=== PATIENT | female | born 1950 | race Caucasian/White ===

== ENCOUNTER → 2016-10-14 | Outpatient (CLI) | payer MEDICARE, OTHER | END | disposition home or self-care (01) | LOC: LABWHC1 08:03 | PROVIDERS: ATTEND Internal Medicine Endocrinology, Diabetes & Metabolism | DX: E11.65 Type 2 diabetes mellitus with hyperglycemia (principal) | CPT/HCPCS: 36415; 82947; 84681 ==

== ENCOUNTER → 2016-10-31 | Outpatient (CLI) | payer MEDICARE, OTHER ==
[2016-10-31 12:17] LABS: Appearance,Urine Clear (Clear); Bacteria,Urine Occasional /hpf; Basophils % (A) 1 %; Bilirubin,Urine Negative (Negative); CH 28.8; CHCM 32.7; Eosinophils # (A) 0.1 k/uL (0-0.7); Eosinophils % (A) 2 %; Glucose,Urine (UA) Negative (Negative); HCT 39.9 % (34.0-46.0); HDW 2.78; HGB 12.9 gm/dL (11.4-16.0); Ketones,Urine Negative (Negative); Leukocyte Esterase,Urine Trace (Negative); Luc # (Auto) 0.09; Luc % (Auto) 2; Lymphocytes # (A) 1.3 k/uL (1.0-4.8); Lymphocytes % (A) 21 %; MCH 28.5 pg (25.0-35.0); MCHC 32.3 g/dL (31.0-37.0); MCV 88.3 fL (80.0-100.0); Mean Platelet Volume 7.1; Monocytes # (A) 0.3 k/uL (0-1.0); Monocytes % (A) 5 %; Mucus,Urine Few /hpf; Neutrophils # (A) 4.4 k/uL (1.3-7.7); Neutrophils % (A) 70 %; Nitrite,Urine Negative (Negative); PH, Urine 5.5 (5.0-8.0); Particle Count 5784; Protein,Urine Trace (Negative); RBC 4.52 m/uL (3.80-5.40); RBC,Urine 2 /hpf (0-5); Specific Gravity,Urine 1.019 (1.001-1.035); Squamous Epithelial Cell,Urine 2 /hpf (0-4); UA Billing (MACRO vs. MICRO) MICRO; WBC 6.3 k/uL (3.8-10.6); WBC,Urine 2 /hpf (0-5)
[2016-10-31 12:34] LABS: ALT 34 U/L (9-52); AST 23 U/L (14-36); Alkaline Phosphatase 91 U/L (38-126); Anion Gap 11 mmol/L; Blood Urea Nitrogen 10 mg/dL (7-17); Calcium 9.7 mg/dL (8.4-10.2); Carbon Dioxide 31 mmol/L (22-30); Chloride 99 mmol/L (98-107); Glucose 166 mg/dL (74-99); Non-African American GFR(MDRD) >60 (>60 ml/min/1.73 sqM); Potassium 4.5 mmol/L (3.5-5.1); Sodium 141 mmol/L (137-145); Total Bilirubin 0.9 mg/dL (0.2-1.3); Total Protein 7.7 g/dL (6.3-8.2); Triglycerides 65 mg/dL (<150)
[2016-10-31 15:24] LABS: LDL Cholesterol, Direct 73.5 mg/dL (0.0-129.0)
== END | disposition home or self-care (01) ==
LOC: LABWHC1 11:41
PROVIDERS: ATTEND Family Medicine
DX: J90 Pleural effusion, not elsewhere classified (principal); E03.9 Hypothyroidism, unspecified; E55.9 Vitamin D deficiency, unspecified; R60.9 Edema, unspecified
CPT/HCPCS: 36415; 80053; 81001; 82043; 82306; 83721; 83880; 84439; 84443; 84478; 85025

== ENCOUNTER → 2017-01-05 | Outpatient (CLI) | payer MEDICARE, OTHER ==
--- NOTE | 2017-01-05 15:20 | XR ---
Bilateral knees HISTORY: Bilateral knee pain 3 views of each knee submitted and correlated to prior left knee dated 05/13/2009 The right knee shows joint space loss, marginal spurring especially the medial Oneil with subchond ral sclerosis. Bone mineralization is maintained. Suprapatellar increased density compatible joint ef fusion. Spurring also present at the patellofemoral joint. Left knee shows post arthroplasty change. Alignment is maintained. Small calcification present within the suprapatellar region on the right obdulio sures 5 mm and is of questionable clinical significance, difficult to exclude small loose body. IMPRESSION: Postop changes and osteoarthritis as described.
== END | disposition home or self-care (01) ==
LOC: RADXRMAIN 14:16
PROVIDERS: ATTEND Psychiatry & Neurology Pain Medicine
DX: M17.0 Bilateral primary osteoarthritis of knee (principal); Z98.890 Other specified postprocedural states

== ENCOUNTER → 2017-02-20 | Outpatient (CLI) | payer MEDICARE, OTHER ==
[2017-02-20 08:59] LABS: Basophils % (A) 1 %; CH 29.1; CHCM 33.2; Eosinophils # (A) 0.1 k/uL (0-0.7); Eosinophils % (A) 2 %; HCT 38.4 % (34.0-46.0); HDW 2.61; HGB 12.8 gm/dL (11.4-16.0); Luc # (Auto) 0.19; Luc % (Auto) 2; Lymphocytes # (A) 1.4 k/uL (1.0-4.8); Lymphocytes % (A) 16 %; MCH 29.3 pg (25.0-35.0); MCHC 33.3 g/dL (31.0-37.0); MCV 87.9 fL (80.0-100.0); Mean Platelet Volume 6.8; Monocytes # (A) 0.4 k/uL (0-1.0); Monocytes % (A) 5 %; Neutrophils # (A) 6.6 k/uL (1.3-7.7); Neutrophils % (A) 75 %; RBC 4.37 m/uL (3.80-5.40); RDW 14.1 % (11.5-15.5); WBC 8.8 k/uL (3.8-10.6); WBC (Perox) 8.85
[2017-02-20 12:48] LABS: ALT 27 U/L (9-52); AST 21 U/L (14-36); Alkaline Phosphatase 103 U/L (38-126); Anion Gap 10 mmol/L; Blood Urea Nitrogen 12 mg/dL (7-17); Calcium 10.1 mg/dL (8.4-10.2); Carbon Dioxide 29 mmol/L (22-30); Chloride 100 mmol/L (98-107); Cholesterol 139 mg/dL (<200); Creatine Kinase 73 U/L (30-135); Glucose 153 mg/dL (74-99); HDL Cholesterol 56 mg/dL (40-60); Magnesium 1.7 mg/dL (1.6-2.3); Non-African American GFR(MDRD) >60 (>60 ml/min/1.73 sqM); Potassium 4.4 mmol/L (3.5-5.1); Sodium 139 mmol/L (137-145); Total Bilirubin 0.8 mg/dL (0.2-1.3); Total Protein 7.1 g/dL (6.3-8.2); Triglycerides 76 mg/dL (<150)
[2017-02-20 13:31] LABS: Vitamin B12 576 pg/mL
[2017-02-20 14:56] LABS: Hemoglobin A1C 7.5 % (4.2-6.1)
== END | disposition home or self-care (01) ==
LOC: LABWHC1 08:20
PROVIDERS: ATTEND Family Medicine
DX: E55.9 Vitamin D deficiency, unspecified (principal); E11.65 Type 2 diabetes mellitus with hyperglycemia; J45.30 Mild persistent asthma, uncomplicated; I10 Essential (primary) hypertension; E78.2 Mixed hyperlipidemia
CPT/HCPCS: 36415; 80053; 80061; 82043; 82306; 82550; 82607; 83036; 83735; 84439; 84443; 85025

== ENCOUNTER → 2017-03-02 | Outpatient (CLI) | payer MEDICARE, OTHER ==
--- NOTE | 2017-03-02 11:57 | XR ---
EXAMINATION TYPE: XR ribs bilateral DATE OF EXAM: 03/02/2017 11:50 AM COMPARISON: NONE HISTORY: Pain TECHNIQUE: 8 views of the ribs were obtained bilaterally. FINDINGS: Arthropathy of the shoulders noted. Hypertrophic and degenerative change of the spine noted. No acute displaced rib fracture. No destructive change. Surgical clips in the upper abdomen noted IMPRESSION: 1. No acute osseous abnormality.
== END | disposition home or self-care (01) ==
LOC: RADXRMAIN 11:30
PROVIDERS: ATTEND Family Medicine
DX: L02.221 Furuncle of abdominal wall (principal); M86.10 Other acute osteomyelitis, unspecified site
CPT/HCPCS: 71110

== ENCOUNTER → 2017-07-27 | Outpatient (CLI) | payer MEDICARE, OTHER ==
[2017-07-27 09:25] LABS: Basophils % (A) 0 %; CH 28.9; Eosinophils # (A) 0.2 k/uL (0-0.7); Eosinophils % (A) 2 %; HCT 39.3 % (34.0-46.0); HDW 2.69; HGB 12.9 gm/dL (11.4-16.0); Luc # (Auto) 0.13; Luc % (Auto) 2; Lymphocytes # (A) 1.4 k/uL (1.0-4.8); Lymphocytes % (A) 18 %; MCH 28.9 pg (25.0-35.0); MCHC 32.8 g/dL (31.0-37.0); MCV 88.1 fL (80.0-100.0); Mean Platelet Volume 6.9; Monocytes # (A) 0.4 k/uL (0-1.0); Monocytes % (A) 5 %; Neutrophils # (A) 5.7 k/uL (1.3-7.7); Neutrophils % (A) 74 %; RBC 4.47 m/uL (3.80-5.40); RDW 13.6 % (11.5-15.5); WBC 7.8 k/uL (3.8-10.6); WBC (Perox) 7.38
[2017-07-27 09:39] LABS: ALT 35 U/L (9-52); AST 24 U/L (14-36); Alkaline Phosphatase 116 U/L (38-126); Anion Gap 10 mmol/L; Blood Urea Nitrogen 9 mg/dL (7-17); Calcium 9.8 mg/dL (8.4-10.2); Carbon Dioxide 30 mmol/L (22-30); Chloride 100 mmol/L (98-107); Cholesterol 131 mg/dL (<200); Glucose 153 mg/dL (74-99); HDL Cholesterol 55 mg/dL (40-60); Magnesium 1.7 mg/dL (1.6-2.3); Non-African American GFR(MDRD) >60 (>60 ml/min/1.73 sqM); Potassium 4.5 mmol/L (3.5-5.1); Sodium 140 mmol/L (137-145); Total Bilirubin 0.8 mg/dL (0.2-1.3); Total Protein 7.3 g/dL (6.3-8.2); Uric Acid 5.3 mg/dL (3.7-7.4)
[2017-07-27 16:07] LABS: ANA w/Reflex to Titer NEGATIVE (NEGATIVE)
[2017-07-27 16:09] LABS: Cyclic Citrull Pep IgG Unit <0.5 U/mL; Cyclic Citrullinated Pep IgG NEGATIVE (NEGATIVE)
[2017-07-27 16:16] LABS: Urine Creatinine 204.8 mg/dL
[2017-07-28 09:37] LABS: Lyme IgG/IgM Interp NEGATIVE (NEGATIVE)
== END | disposition home or self-care (01) ==
LOC: LABWHC1 08:51
PROVIDERS: ATTEND Family Medicine
DX: E11.65 Type 2 diabetes mellitus with hyperglycemia (principal); R25.1 Tremor, unspecified; L02.211 Cutaneous abscess of abdominal wall; J45.20 Mild intermittent asthma, uncomplicated; E78.2 Mixed hyperlipidemia; I50.31 Acute diastolic (congestive) heart failure; M25.50 Pain in unspecified joint
CPT/HCPCS: 36415; 80053; 80061; 82043; 82570; 82607; 83735; 84439; 84443; 84550; 85025; 86038; 86200; 86618

== ENCOUNTER → 2017-10-26 | Outpatient (CLI) | payer MEDICARE, OTHER ==
[2017-10-26 10:06] LABS: Basophils # (A) 0.1 k/uL (0-0.2); Basophils % (A) 1 %; Eosinophils # (A) 0.2 k/uL (0-0.7); Eosinophils % (A) 2 %; HCT 42.3 % (34.0-46.0); HGB 13.4 gm/dL (11.4-16.0); Lymphocytes # (A) 1.9 k/uL (1.0-4.8); Lymphocytes % (A) 17 %; MCHC 31.7 g/dL (31.0-37.0); MCV 88.2 fL (80.0-100.0); Mean Platelet Volume 7.6; Monocytes # (A) 0.5 k/uL (0-1.0); Monocytes % (A) 5 %; Neutrophils # (A) 8.6 k/uL (1.3-7.7); Neutrophils % (A) 75 %; Platelet Count 337 k/uL (150-450); RBC 4.79 m/uL (3.80-5.40); RDW 15.3 % (11.5-15.5); WBC 11.4 k/uL (3.8-10.6)
[2017-10-26 10:22] LABS: ALT 32 U/L (9-52); AST 19 U/L (14-36); Alkaline Phosphatase 113 U/L (38-126); Anion Gap 10 mmol/L; Blood Urea Nitrogen 19 mg/dL (7-17); Calcium 10.4 mg/dL (8.4-10.2); Carbon Dioxide 31 mmol/L (22-30); Chloride 99 mmol/L (98-107); Cholesterol 142 mg/dL (<200); Creatine Kinase 48 U/L (30-135); Glucose 134 mg/dL (74-99); HDL Cholesterol 58 mg/dL (40-60); LDL Cholesterol,Calculated 73 mg/dL (0-99); Potassium 4.7 mmol/L (3.5-5.1); Sodium 140 mmol/L (137-145); Total Bilirubin 0.6 mg/dL (0.2-1.3); Total Protein 7.7 g/dL (6.3-8.2); Triglycerides 56 mg/dL (<150); Uric Acid 4.6 mg/dL (3.7-7.4)
[2017-10-26 10:34] LABS: T4, Free (Free Thyroxine) 1.44 ng/dL (0.78-2.19)
[2017-10-26 10:43] LABS: Appearance,Urine Clear (Clear); Bilirubin,Urine Negative (Negative); Blood,Urine Negative (Negative); Color,Urine Colorless; Glucose,Urine (UA) Negative (Negative); Ketones,Urine Negative (Negative); Leukocyte Esterase,Urine Negative (Negative); Nitrite,Urine Negative (Negative); Protein,Urine Trace (Negative); Specific Gravity,Urine 1.004 (1.001-1.035); Urobilinogen,Urine <2.0 mg/dL (<2.0)
[2017-10-26 10:57] LABS: Bacteria,Urine Many /hpf; Mucus,Urine Many /hpf; Squamous Epithelial Cell,Urine 11 /hpf (0-4); WBC,Urine 5 /hpf (0-5)
== END | disposition home or self-care (01) ==
LOC: LABWHC1 09:39
PROVIDERS: ATTEND Family Medicine
DX: E11.65 Type 2 diabetes mellitus with hyperglycemia (principal); E78.2 Mixed hyperlipidemia; E03.9 Hypothyroidism, unspecified
CPT/HCPCS: 36415; 80053; 80061; 81003; 82043; 82550; 82570; 83036; 83735; 84439; 84443; 84550; 85025

== ENCOUNTER → 2017-11-05 | Outpatient (CLI) | payer MEDICARE, OTHER ==
[2017-11-05 15:10] LABS: Protein, Total 7.2 g/dL (6.2-8.2)
[2017-11-09 10:35] LABS: Albumin 3.97 g/dL (3.80-4.90); Gamma Globulin 1.22 g/dL (0.70-1.50)
== END | disposition home or self-care (01) ==
LOC: LABWHC1 11:15
PROVIDERS: ATTEND Nurse Practitioner Family
DX: E83.52 Hypercalcemia (principal); R80.9 Proteinuria, unspecified
CPT/HCPCS: 36415; 82310; 83970; 84165

== ENCOUNTER → 2017-12-24 | Outpatient (CLI) | payer MEDICARE, OTHER ==
[2017-12-24 22:22] LABS: Hemoglobin A1C 7.1 % (4.0-6.0)
== END | disposition home or self-care (01) ==
LOC: LABWHC1 09:24
PROVIDERS: ATTEND Internal Medicine
DX: E11.65 Type 2 diabetes mellitus with hyperglycemia (principal)
CPT/HCPCS: 36415; 82306; 83036

== ENCOUNTER → 2018-06-11 | Outpatient (CLI) | payer MEDICARE, OTHER ==
--- NOTE | 2018-06-11 09:02 | CT ---
EXAMINATION TYPE: CT abdomen wo con DATE OF EXAM: 06/11/2018 COMPARISON: 07/28/2017 HISTORY: Right upper quadrant pain CT DLP: 528 mGycm Examination of the solid and hollow viscera is limited given the lack of contrast. Unenhanced CT of the abdomen was performed from the lung bases through the iliac crests. FINDINGS: LUNG BASES: No evidence for nodule. No evidence for infiltrate. LIVER/GB: The gallbladder surgically absent. No space-occupying hepatic lesion. PANCREAS: No pancreatic mass identified. No inflammatory process seen. SPLEEN: No evidence for splenomegaly. No intrasplenic lesions seen. ADRENALS: No adrenal nodules identified. No evidence for thickening. KIDNEYS: No evidence for renal mass. No nephrolithiasis. No hydronephrosis. BOWEL: Appendix has a normal appearance. No evidence of bowel obstruction. No inflammatory process. Lymph nodes: No evidence for adenopathy greater than 1 cm. Abdominal aorta: Atheromatous changes seen. No evidence for aneurysm. Other: Degenerative changes upper lumbar spine. IMPRESSION: 1. No acute process seen.
== END | disposition home or self-care (01) ==
LOC: RADCTMAIN 08:25
PROVIDERS: ATTEND Internal Medicine
DX: R10.11 Right upper quadrant pain (principal)
CPT/HCPCS: 74150

== ENCOUNTER → 2018-07-07 | Outpatient (CLI) | payer MEDICARE, OTHER ==
[2018-07-07 10:15] LABS: Basophils # (A) 0.1 k/uL (0-0.2); Basophils % (A) 1 %; Eosinophils # (A) 0.1 k/uL (0-0.7); Eosinophils % (A) 2 %; HCT 39.7 % (34.0-46.0); HGB 12.7 gm/dL (11.4-16.0); Lymphocytes # (A) 1.7 k/uL (1.0-4.8); Lymphocytes % (A) 18 %; MCH 29.1 pg (25.0-35.0); MCV 90.7 fL (80.0-100.0); Mean Platelet Volume 7.1; Monocytes # (A) 0.4 k/uL (0-1.0); Monocytes % (A) 5 %; Neutrophils # (A) 6.8 k/uL (1.3-7.7); Neutrophils % (A) 74 %; Platelet Count 261 k/uL (150-450); RBC 4.38 m/uL (3.80-5.40); RDW 14.2 % (11.5-15.5); WBC 9.2 k/uL (3.8-10.6)
[2018-07-07 10:41] LABS: Appearance,Urine Cloudy (Clear); Bacteria,Urine Many /hpf; Bilirubin,Urine Negative (Negative); Blood,Urine Negative (Negative); Color,Urine Yellow; Glucose,Urine (UA) Negative (Negative); Ketones,Urine Negative (Negative); Leukocyte Esterase,Urine Trace (Negative); Mucus,Urine Many /hpf; Nitrite,Urine Negative (Negative); PH, Urine 6.5 (5.0-8.0); Protein,Urine Trace (Negative); RBC,Urine 1 /hpf (0-5); Specific Gravity,Urine 1.021 (1.001-1.035); Squamous Epithelial Cell,Urine 4 /hpf (0-4); WBC,Urine 2 /hpf (0-5)
[2018-07-07 11:09] LABS: ALT 18 U/L (9-52); AST 19 U/L (14-36); Albumin 3.8 g/dL (3.5-5.0); Alkaline Phosphatase 96 U/L (38-126); Anion Gap 8 mmol/L; Blood Urea Nitrogen 14 mg/dL (7-17); Calcium 10.3 mg/dL (8.4-10.2); Carbon Dioxide 32 mmol/L (22-30); Chloride 100 mmol/L (98-107); Cholesterol 134 mg/dL (<200); Creatine Kinase 52 U/L (30-135); Glucose 120 mg/dL (74-99); HDL Cholesterol 55 mg/dL (40-60); LDL Cholesterol,Calculated 68 mg/dL (0-99); Potassium 5.1 mmol/L (3.5-5.1); Sodium 140 mmol/L (137-145); Total Bilirubin 0.9 mg/dL (0.2-1.3); Total Protein 7.1 g/dL (6.3-8.2); Triglycerides 56 mg/dL (<150)
[2018-07-07 11:25] LABS: T4, Free (Free Thyroxine) 1.65 ng/dL (0.78-2.19)
[2018-07-07 18:45] LABS: Vitamin D 25 Hydroxy 52.3 ng/mL (30.0-100.0)
[2018-07-07 20:15] LABS: Hemoglobin A1C 6.6 % (4.0-6.0)
== END | disposition home or self-care (01) ==
LOC: LABWHC1 09:11
PROVIDERS: ATTEND Internal Medicine
DX: E11.65 Type 2 diabetes mellitus with hyperglycemia (principal); E83.52 Hypercalcemia; E78.5 Hyperlipidemia, unspecified; I10 Essential (primary) hypertension; E55.9 Vitamin D deficiency, unspecified; E03.9 Hypothyroidism, unspecified
CPT/HCPCS: 36415; 80053; 80061; 81001; 82043; 82306; 82550; 82570; 82607; 83036; 84439; 84443; 85025

== ENCOUNTER → 2018-08-28 | Outpatient (CLI) | payer MEDICARE, OTHER ==
--- NOTE | 2018-08-28 17:09 | MR ---
EXAMINATION TYPE: MR thoracic spine wo con DATE OF EXAM: 08/28/2018 COMPARISON: Chest radiograph dated 03/17/2017 HISTORY: Radiculopathy thoracic region TECHNIQUE: Standard multiplanar, multisequence MRI other thoracic spine per departmental protocol was performed without intravenous contrast. FINDINGS: There is a heterogenous and mottled appearance of the bone marrow although overall signal i s within normal limits. The vertebral bodies of the thoracic spine maintain normal vertebral body hei ght and alignment. There is an exaggerated thoracic kyphosis. At T10-T11 there is ligamentum flavum buckling and facet arthropathy creating mild bilateral neural f oraminal narrowing. Disc desiccation is seen without disc herniation. At T11-T12 there is also facet arthropathy and ligamentum flavum buckling creating minimal bilateral neural foraminal narrowing. Disc desiccation is seen without herniation. T12-L1: There is a small central disc herniation and facet arthropathy resulting in minimal bilateral neural foraminal narrowing without spinal canal stenosis. At the remainder of the thoracic vertebral levels there is multilevel disc desiccation without spinal canal stenosis or neural foraminal narrowing. Multilevel anterior osteophytes are seen throughout th e thoracic spine as well as an exaggerated thoracic kyphosis. IMPRESSION: 1. No evidence of vertebral body height loss or malalignment. No bone marrow edema or compression def ormity. 2. Small central disc herniation at T12-L1 crating minimal bilateral neural foraminal narrowing witho ut spinal canal stenosis. 3. Ligamentum flavum buckling and facet arthropathy at T10-T11 and T11-T12 creating mild bilateral no rmal foraminal narrowing at T10-T11 and minimal bilateral neural foraminal narrowing at T11-T12. 4. Somewhat heterogenous bone marrow that although is within normal limits could be correlated with C BC to evaluate for anemia or less likely myeloproliferative disorder.
== END ==
LOC: RADMRIMAIN 14:33
PROVIDERS: ATTEND Family Medicine
DX: M99.72 Connective tissue and disc stenosis of intervertebral foramina of thoracic region (principal); M51.15 Intervertebral disc disorders with radiculopathy, thoracolumbar region; M46.94 Unspecified inflammatory spondylopathy, thoracic region
CPT/HCPCS: 72146

== ENCOUNTER → 2018-11-03 | Outpatient (CLI) | payer MEDICARE, OTHER ==
[2018-11-03 12:21] LABS: Basophils # (A) 0.1 k/uL (0-0.2); Basophils % (A) 1 %; Eosinophils # (A) 0.1 k/uL (0-0.7); Eosinophils % (A) 2 %; HCT 36.5 % (34.0-46.0); HGB 11.7 gm/dL (11.4-16.0); Lymphocytes # (A) 1.3 k/uL (1.0-4.8); Lymphocytes % (A) 19 %; MCH 27.2 pg (25.0-35.0); MCHC 31.9 g/dL (31.0-37.0); Mean Platelet Volume 6.8; Monocytes # (A) 0.3 k/uL (0-1.0); Monocytes % (A) 4 %; Neutrophils # (A) 4.9 k/uL (1.3-7.7); Neutrophils % (A) 73 %; Platelet Count 259 k/uL (150-450); RDW 14.3 % (11.5-15.5); WBC 6.7 k/uL (3.8-10.6)
[2018-11-03 12:26] LABS: Appearance,Urine Cloudy (Clear); Bacteria,Urine Moderate /hpf; Bilirubin,Urine Negative (Negative); Blood,Urine Negative (Negative); Color,Urine Yellow; Glucose,Urine (UA) Negative (Negative); Ketones,Urine Negative (Negative); Leukocyte Esterase,Urine Negative (Negative); Mucus,Urine Many /hpf; Nitrite,Urine Negative (Negative); PH, Urine 5.5 (5.0-8.0); Protein,Urine Trace (Negative); RBC,Urine 1 /hpf (0-5); Specific Gravity,Urine 1.025 (1.001-1.035); Squamous Epithelial Cell,Urine 4 /hpf (0-4); WBC,Urine 3 /hpf (0-5)
[2018-11-03 18:16] LABS: Iron Saturation 15.67 (12.00-45.00)
[2018-11-03 18:24] LABS: Vitamin D 25 Hydroxy 83.8 ng/mL (30.0-100.0)
[2018-11-03 18:25] LABS: Albumin 4.3 g/dL (3.80-4.90); Albumin/Globulin Ratio 1.72 (1.20-2.10); Anion Gap 9.6 mmol/L (4.00-12.00); Calcium 9.9 mg/dL (8.7-10.3); Carbon Dioxide 30.4 mmol/L (21.6-31.8); Globulin 2.5 g/dL (1.6-3.3); Magnesium 1.6 mg/dL (1.5-2.4); Potassium 4.1 mmol/L (3.5-5.5); Total Bilirubin 0.5 mg/dL (0.3-1.2); Total Protein 6.8 g/dL (6.2-8.2); Uric Acid 4.8 mg/dL (2.9-7.7)
[2018-11-03 18:33] LABS: T4, Free (Free Thyroxine) 1.8 ng/dL (0.80-1.80)
[2018-11-03 20:03] LABS: Hemoglobin A1C 6.7 % (4.0-6.0)
== END | disposition home or self-care (01) ==
LOC: LABWHC1 10:38
PROVIDERS: ATTEND Family Medicine
DX: I25.10 Atherosclerotic heart disease of native coronary artery without angina pectoris (principal); M54.14 Radiculopathy, thoracic region; I10 Essential (primary) hypertension; E11.65 Type 2 diabetes mellitus with hyperglycemia; E03.9 Hypothyroidism, unspecified; E53.8 Deficiency of other specified B group vitamins; E87.8 Other disorders of electrolyte and fluid balance, not elsewhere classified
CPT/HCPCS: 36415; 80053; 80061; 81001; 82043; 82306; 82550; 82570; 82607; 83036; 83540; 83550; 83704; 83735; 84439; 84443; 84550; 85025

== ENCOUNTER → 2019-01-19 | Outpatient (CLI) | payer MEDICARE, OTHER ==
[2019-01-19 14:31] LABS: Basophils % (A) 0 %; Eosinophils # (A) 0.2 k/uL (0-0.7); Eosinophils % (A) 2 %; HCT 38.3 % (34.0-46.0); HGB 12.1 gm/dL (11.4-16.0); Lymphocytes # (A) 1.7 k/uL (1.0-4.8); Lymphocytes % (A) 21 %; MCH 27.4 pg (25.0-35.0); MCHC 31.7 g/dL (31.0-37.0); MCV 86.6 fL (80.0-100.0); Mean Platelet Volume 6.7; Monocytes # (A) 0.4 k/uL (0-1.0); Monocytes % (A) 5 %; Neutrophils # (A) 5.6 k/uL (1.3-7.7); Neutrophils % (A) 71 %; Platelet Count 267 k/uL (150-450); RBC 4.42 m/uL (3.80-5.40); RDW 14.7 % (11.5-15.5); WBC 7.9 k/uL (3.8-10.6)
[2019-01-19 19:48] LABS: T4, Free (Free Thyroxine) 1.6 ng/dL (0.80-1.80)
[2019-01-19 19:53] LABS: Anti-DNA, DS unit <1.0 IU/mL; DNA Double-Stranded NEGATIVE (NEGATIVE)
[2019-01-19 20:06] LABS: Rheumatoid Factor 14 IU/mL (0-15)
[2019-01-19 20:29] LABS: Folate, Serum 10.6 ng/mL
== END | disposition home or self-care (01) ==
LOC: LABWHC1 13:24
PROVIDERS: ATTEND Psychiatry & Neurology Neurology
DX: R41.3 Other amnesia (principal)
CPT/HCPCS: 36415; 82565; 82607; 82746; 84439; 84443; 84450; 84460; 84481; 84520; 85025; 86038; 86225; 86431

== ENCOUNTER → 2019-01-25 | Outpatient (CLI) | payer MEDICARE, OTHER ==
--- NOTE | 2019-01-25 09:47 | MR ---
EXAMINATION TYPE: MR brain wo/w con DATE OF EXAM: 01/25/2019 COMPARISON: 03/04/2013 HISTORY: Memory loss, tumor TECHNIQUE: Multiplanar, multisequence images of the brain and brainstem is performed without and with IV contras t, utilizing 7.5 mL intravenous Gadavist . FINDINGS: Diffusion weighted images demonstrate no evidence of a recent infarct or other diffusion ab normality. The ventricular system and cisternal spaces demonstrate mild asymmetry in the frontal lob es compatible with asymmetric atrophy. No midline shift or mass effect. Midline structures demonstrate normal morphology. Cerebellar tonsils are low-lying in position measur ing approximately 1 to 2 mm below the level of the foramen magnum. Partially empty sella turcica not ed. Changes of chronic sinusitis are noted. There is a soft tissue nodule within the right parotid gland measuring 0.8 cm. Changes of chronic mastoiditis noted. There is an extra-axial mass involving the right parietal lobe measuring 0.9 x 0.4 x 0.8 cm. There is likely extra-axial and most likely in the basis of a meningioma. No significant mass effect. White matter: There are approximately 2 areas of abnormal signal within the white matter which measur e less than 5 mm and are questionable significance Tiny areas of abnormal signal involving the basal ganglia may represent prominent Virchow-George space s or tiny remote lacunar infarcts. There is a tiny area of abnormal signal in the right thalamus sugg estive of a tiny remote lacunar infarct. There is a more localized area of abnormal signal seen within the posterior left parietal lobe sugges tive of an area of encephalomalacia in previous infarction. There also appears to be asymmetric CSF prior prominence along the posterior midbrain on the left whi ch could represent a small arachnoid cyst measuring 0.5 x 0.5 cm. This is retrospectively stable. IMPRESSION: 1. There is an extra-axial mass measuring 0.9 x 0.4 x 0.8 cm along the right cerebral convexity which is nonspecific given the small size but most likely in the basis of a meningioma. No significant mas s effect. 2. There is a 8mm right parotid gland nodule which should be correlated with ultrasound. 3. Encephalomalacia involving the left temporal lobe suggestive of previous ischemia correlate clinic ally. 4. Minimal nonspecific white matter changes. 5. 5 mm asymmetric CSF prominence along the posterior margin of the left midbrain may represent a tin y arachnoid cyst but is retrospectively stable dating back to the prior exam. 6. Mild atrophy involving the frontal lobes is retrospectively stable. 7. Trace amount of fluid surrounding the optic nerves is a nonspecific finding. There is no flattenin g of the orbits. Correlate clinically to exclude mild papilledema. This can occasionally be seen with benign increased intracranial hypertension. 8. low-lying cerebellar tonsils measuring approximately 1 to 2 mm below the foramen magnum.
== END ==
LOC: RADMRIMAIN 08:48
PROVIDERS: ATTEND Psychiatry & Neurology Neurology
DX: D49.6 Neoplasm of unspecified behavior of brain (principal); G93.89 Other specified disorders of brain; G31.9 Degenerative disease of nervous system, unspecified; R90.89 Other abnormal findings on diagnostic imaging of central nervous system
CPT/HCPCS: 70553; A9585

== ENCOUNTER → 2019-02-25 | Outpatient (CLI) | payer MEDICARE, OTHER ==
[2019-02-25 14:01] VITALS: BP 109/69; PULSE 65; RESP 18; TEMP 97.7; BMI 34.0
--- NOTE | 2019-02-25 14:51 | P.GSHP ---
History of Present Illness H&P Date: 02/25/19 Chief Complaint: abnormal left breast mammogram The patient is a 68 year old white female with complaint of a radiographic abnormality noted in her left breast on 4919. Additional views of the left breast were performed which revealed at the 2:30 position 7.6 cm from the nipple a density measuring 3 x 5 mm was not present on prior mammogram. This was felt to be suspicious and biopsy was recommended. The patient has had hidradenitis in both axilla and under both breast in the past. She states that it is difficult to do exam secondary to this and has not felt anything new in her breasts. She is not complaining of any different skin changes or nipple discharge. She has no history of any recent trauma. She has had a recent development of an abscess-like area between her breast and one under her right breast. These areas are actively inflamed at this time. She has never had a history of MRSA. She has had these lanced in the past but not recently. Family history: 1. maternal grandmother: skin cancer 2. patient: cervical cancer Hormonal history: Menarche:12 , 1 miscarriage, breast fed: no, first born at 21 menopause: 41 BCP:4 hormones: none Surgical History: 1. gallbladder 2. knee replacement left 3. triger finger 4. carpal tunnel left Medical history: 1. Hidradenitis 2. Arthritis 3. Herniated disc in back 4. tremor 5. Diabetes 6. Hypothyroidism Social History: smoke: 12/day alcohol: rare drugs: none - Constitutional Constitutional: Reports chills, Denies fever - EENT Comment: wears contacts, cataract on the right eye removed Eyes: denies pain Ears: bilateral: decreased hearing, tinnitus Ears, nose, mouth and throat: Denies headache, Denies sore throat - Breasts Breasts: bilateral: as per HPI - Cardiovascular Comment: pericarditis Cardiovascular: Reports high blood pressure - Respiratory Comment: Emphysema Respiratory: Denies cough, Denies 7 - Gastrointestinal Comment: IBS Gastrointestinal: Reports diarrhea, Denies abdominal pain, Denies nausea, Denies vomiting - Genitourinary (Female) Genitourinary: Denies dysuria, Denies hematuria - Menstruation Menstruation: Reports post hysterectomy - Musculoskeletal Comment: arthritis Musculoskeletal: Reports as per HPI - Integumentary Integumentary: Reports as per HPI - Neurological Neurological: Denies numbness, Denies weakness - Psychiatric Psychiatric: Reports anxiety - Endocrine Comment: diabetes, hypothyroid Endocrine: Reports weight change - Hematologic/Lymphatic Comment: none - Allergic/Immunologic Allergic/Immunologic: Reports as per HPI Past Medical History Past Medical History: COPD, Diabetes Mellitus, Hyperlipidemia, Hypertension, Thyroid Disorder Additional Past Medical History / Comment(s): Childhood Hepatitis A, hx pericarditis, DDD History of Any Multi-Drug Resistant Organisms: None Reported Past Surgical History: Cholecystectomy, Joint Replacement, Orthopedic Surgery Additional Past Surgical History / Comment(s): egd in past, left knee replacement, dae trigger fingers, right hand carpal tunnel Past Anesthesia/Blood Transfusion Reactions: No Reported Reaction Past Psychological History: Anxiety Additional Psychological History / Comment(s): states especially when awaiting procedures Smoking Status: Current every day smoker Past Alcohol Use History: Occasional Additional Past Alcohol Use History / Comment(s): started smoking age 18 (1967), smokes 1/2 ppd Past Drug Use History: None Reported - Past Family History Sister(s) Family Medical History: Deep Vein Thrombosis (DVT) Medications and Allergies Home Medications Medication Instructions Recorded Confirmed Type Aclidinium [place] [Tudorza 1 puff INHALATION BID 07/06/15 02/25/19 History Pressair] Aspirin 81 mg PO DAILY 07/06/15 02/25/19 History Atorvastatin [Lipitor] 40 mg PO HS 07/06/15 02/25/19 History Ergocalciferol [Vitamin D2] 50,000 unit PO Q14D 07/06/15 02/25/19 History Ferrous Sulfate [Feosol] 650 mg PO DAILY 07/06/15 02/25/19 History Fluticasone/Salmeterol [Advair 1 puff INHALATION RT-BID 07/06/15 02/25/19 History 250-50 Diskus] Levothyroxine Sodium [Synthroid] 50 mcg PO DAILY 07/06/15 02/25/19 History Magnesium Oxide [Magox 400] 400 mg PO DAILY 07/06/15 02/25/19 History Omeprazole [PriLOSEC] 20 mg PO AC-BRKFST 07/06/15 02/25/19 History Ramipril [Altace] 5 mg PO DAILY 07/06/15 02/25/19 History metFORMIN HCL [Glucophage] 1,000 mg PO BID 07/06/15 02/25/19 History Insulin Aspart [NovoLOG Flexpen] 5 unit SQ TID@0800,1200,1700 06/26/16 02/25/19 History Insulin Glargine [Lantus] 20 unit SQ HS 06/26/16 02/25/19 History Cyanocobalamin (Vitamin B-12) 1,000 mcg PO DAILY 07/28/17 02/25/19 History [Vitamin B-12] Furosemide [Lasix] 30 mg PO DAILY 07/28/17 02/25/19 History Potassium Chloride [K-Tab ER] 10 meq PO HS 07/28/17 02/25/19 History Propranolol HCl 60 mg PO DAILY 07/28/17 02/25/19 History Albuterol Inhaler [Ventolin Hfa 1 - 2 puff INHALATION RT-Q6H PRN 02/25/19 02/25/19 History Inhaler] Allergies Allergy/AdvReac Type Severity Reaction Status Date / Time codeine AdvReac Nausea Verified 02/25/19 14:03 Surgical - Exam Vital Signs Temp Pulse Resp BP Pulse Ox 97.7 F 65 18 109/69 100 02/25/19 13:59 02/25/19 13:59 02/25/19 13:59 02/25/19 13:59 02/25/19 13:59 BMI 34 - General well developed, well nourished, no distress - Eyes normal ocular movement - ENT normal pinna, no hearing loss - Neck no masses, trachea midline - Respiratory normal expansion, normal respiratory effort, clear to auscultation - Cardiovascular Rhythm: regular Heart Sounds: normal: S1, S2 - Abdomen Abdomen: soft - Integumentary Evidence of hidradenitis bilateral axilla, underneath both breasts, and in both groins - Neurologic no disoriented, no combative - Musculoskeletal normal gait, normal posture - Psychiatric oriented to time, oriented to person, oriented to place, speech is normal, memory intact Breast examination: Right breast: Multi-positional exam no dominant masses or nodules of concern, fibrocystic changes, evidence of hidradenitis inferior to breast Right axilla: Hidradenitis no discrete adenopathy Left breast: Multi-positional exam no dominant masses or nodules of concern, fibrocystic changes, evidence of hidradenitis inferior to the breast Left axilla: Hidradenitis no discrete adenopathy Results mammogram reports reviewed Assessment and Plan Assessment: Impression: 1. Mammographic abnormality left breast 2. Bilateral axillary hidradenitis 3. Family history of cancer 4. Fibrocystic breast changes 5. Thyroid disorder 6. Hypertension 7. COPD 8. Nicotine dependence 9. Hyperlipidemia 10. Diabetes 11. Hidradenitis inferior to the breast as well as in the groins Plan: 1. Patient is radiograph report has been reviewed with radiology attempted see if this lesion can be seen on ultrasound if it can the biopsy will be done via ultrasound guidance if not she will have stereotactic guided biopsy of the left breast 2. Medical management of medical conditions CC: Dr. Ortiz
--- NOTE | 2019-03-01 08:10 | USB ---
Reason for exam: clinical finding. US Breast LT Left complete breast ultrasound includes all four quadrants, the retroareolar region and axilla. Finding demonstrates no cystic or solid lesion seen. These results were verbally communicated with the patient and result sheet given to the patient on 02/25/19. ASSESSMENT: Negative, BI-RAD 1 RECOMMENDATION: Surgical consultation of the left breast. PRELIMINARY REPORT CALLED AND FAXED TO DR. COLLIER ON 03/01/19
== END ==
LOC: WWCWWP 13:50
PROVIDERS: ATTEND Surgery
DX: R92.8 Other abnormal and inconclusive findings on diagnostic imaging of breast (principal)

== ENCOUNTER → 2019-03-04 | Day surgery (SDC) | payer MEDICARE, OTHER ==
[2019-03-04 07:30] VITALS: RESP 16; BMI 33.3
[2019-03-04 08:49] VITALS: BP 111/70; PULSE 60; TEMP 97.7
--- NOTE | 2019-03-04 08:59 | P.OP ---
Date of Procedure: 03/04/19 Preoperative Diagnosis: Mammographic abnormality left breast Postoperative Diagnosis: same Procedure(s) Performed: Stereotactic core biopsy left breast Anesthesia: local Surgeon: Dali Conroy Estimated Blood Loss (ml): 0 Pathology: other (Breast tissue) Condition: stable Disposition: same day Indications for Procedure: Mammographic abnormality left breast Description of Procedure: The patient was noted to have a spiculated area of increasing density 0.7 x 0.3 cm in the upper mid aspect of the left breast 8 cm from the [place]ipple [place] [id number]. She was recommended to undergo stereotactic core biopsy. The patient was informed of risks and benefits and she wished to proceed. The patient was taken to the stereotactic core biopsy room. She was positioned on the low had table. A plastering contractor film was obtained in the area of concern was identified. The approach was a lateral to medial approach. Stereo pair of the area was performed. The lesion was targeted on the stereo pair. The breast was prepped using Betadine. 20 mL of 1% lidocaine was used to anesthetize the breast. A 9-gauge vacuum-assisted rotating core biopsy needle was inserted to the they needle was noted to be in the correct location and post-fire films were obtained. Approximately 9 core biopsies were obtained. Radiograph of the specimen revealed the area of concern had been sampled. A Secure manny top straw hat plunger operator was deployed. Radiograph revealed that this was in the correct location. Specimen was sent for pathology. The patient will follow with Dr. Ochoa in 1 week. The patient had no immediate postoperative complications.
--- NOTE | 2019-03-04 15:27 | MM ---
EXAMINATION TYPE: MG stereo VAD BX LT DATE OF EXAM: 03/04/2019 COMPARISON: Mammogram 02/04/2019, mammogram 01/18/2019 CLINICAL HISTORY: Abnormal outside mammogram spiculated mass with possible calcification TECHNIQUE: Stereotactic guided core biopsy of left breast. FINDINGS: Procedures performed with surgeon. [facility]. Shortness pathway was lateral approach. Dr. Zeyad meza formed the localization, then surgeon, Dr. Don Wagner performed the remainder of the procedure. A va cuum assisted biopsy gun was used to obtain multiple core samples. The patient tolerated the procedure well without any immediate complication. The patient was kept in the radiology department for short stay after the procedure and then discharged home in stable condi tion. Targeted calcifications are identified in specimen mammogram. Post procedure mammogram ordered by the physician is reviewed below. IMPRESSION: 1. Successful stereotactic core biopsy right breast mass contains calcifications. Recommendations: 1. Recommendations are pending pathology results. 2. Please also see clip placement mammogram dictation below. EXAMINATION TYPE: MG stereo VAD BX LT DATE OF EXAM: 03/04/2019 COMPARISON: Outside mammograms dated 01/18/2019 and outside diagnostic imaging left breast 02/04/2019. CLINICAL HISTORY: Abnormal outside mammogram TECHNIQUE: 2 views of the left breast post clip placement. FINDINGS: There is some suspected migration present. Biopsy site appears 1.2 cm from the clip in the mediolateral view and 2.7 cm in the craniocaudal view. IMPRESSION: 1. Successful clip deployment with some accordion effect following decompression. Recommendations: 1. Recommendations are pending pathology results. 2. If localization of this area is required please refer to outside mammogram dated 01/18/2019 for inte nded target and post procedure mammogram of 03/04/2019.
== END ==
LOC: RADMAMWWP 07:04
PROVIDERS: ATTEND Surgery
DX: C50.812 Malignant neoplasm of overlapping sites of left female breast (principal); Z88.5 Allergy status to narcotic agent
CPT/HCPCS: 19081; 88305; 88342; 88341; A4648; J2001

== ENCOUNTER → 2019-03-10 | Outpatient (CLI) | payer MEDICARE, OTHER ==
[2019-03-10 08:25] VITALS: BP 114/72; PULSE 69; RESP 18; TEMP 98.2; BMI 33.2
--- NOTE | 2019-03-10 11:04 | P.PN ---
Subjective Progress Note Date: 03/10/19 The patient is a 60-year-old white female who was noted to have a radiographic abnormality in her left breast. She subsequently underwent a stereotactic core biopsy of this area. This was performed on 520 [id number]. Pathology revealed an invasive well-differentiated ductal carcinoma, grade 1, ER/AL positive, HER- 2/shree negative. This is a stage IA lesion. Upon review of the mammogram there is concern that the patient may have had some migration of the clip after the biopsy. The area of the biopsy however was identified with the radiologist. Also of importance is the fact that there was some DCIS present in the specimen. The size of the lesion radiographically was approximately 7 mm. The patient has a size 40DD breast. Family history: 1. Maternal grandmother: Skin cancer 2. Patient: Cervical cancer Hormonal history: Menarche: 12 , 1 miscarriage, press-fit: No, and at 21 Menopause: 41 Visit control pills: 4 years Hormones: None Surgical history: 1. Cholecystectomy 2. Left knee replacement 3. Trigger finger 4. Left carpal tunnel Medical history: 1. Hidradenitis 2. Arthritis 3. Herniated disc in her back 4. Tremor 5. Diabetes 6. Hypothyroidism Social history: Smoke: One half pack per day Alcohol: Rare Drugs: Negative Review of systems: Constitutional: Negative HEENT: Wears glasses cataracts on the right I removed Breasts: As noted Cardiovascular: Pericarditis in the past Respiratory: Emphysema GI: Irritable bowel syndrome : Prior history of previous cervical cancer Musculoskeletal: Arthritis Psychiatric: Anxiety Lungs: Clear Heart: Regular rate and rhythm Breasts: Biopsy site clean and dry Impression: 1. Objective - Vital Signs Vital signs: Vital Signs Temp 98.2 F 03/10/19 08:18 Pulse 69 03/10/19 08:18 Resp 18 03/10/19 08:18 BP 114/72 03/10/19 08:18 Pulse Ox 99 03/10/19 08:18 Intake & Output 03/09/19 03/10/19 03/10/19 18:59 06:59 18:59 Weight 77.111 kg - Exam BMI 33.2 - Constitutional General appearance: Present: obese - EENT Eyes: Present: EOMI ENT: Present: hearing grossly normal - Neck Neck: Present: normal ROM - Respiratory Respiratory: bilateral: CTA - Cardiovascular Rhythm: regular Heart sounds: normal: S1, S2 - Integumentary Integumentary Comment(s): Bilateral axillary evidence of hidradenitis well-healed at this time Core biopsy site clean and dry no evidence of infection - Musculoskeletal Musculoskeletal: Present: gait normal - Psychiatric Psychiatric: Present: A&O x's 3, appropriate affect, intact judgment & insight - Additional findings Additional findings: Pathology: Invasive well-differentiated ductal carcinoma, grade 1, low-grade DCIS with associated calcifications, ER/AL positive, HER-2 negative Assessment and Plan Assessment: Impression: 1. Stage IA left breast cancer 2. Arthritis 3. Diabetes 4. Herniated disc and back 5. Tremor 6. Hypothyroid Plan: 1. Left breast lumpectomy and sentinel node biopsy possible axillary node dissection 2. Medical clearance 3. Preoperative appointment with radiation oncology 4. Follow-up with medical oncology 5. Presentation at tumor board Surgical options including mastectomy versus lumpectomy with radiation therapy were discussed with the patient. The patient wishes a lumpectomy to be performed . The patient will also undergo sentinel node biopsy possible axillary node dissection. She understands the risks and benefits and wishes to proceed. She understands that the left breast will be asymmetric to the right breast and despite that she wishes to have a resection. Cc: Dr. Ortiz
== END ==
LOC: WWCWWP 08:12
PROVIDERS: ATTEND Surgery
DX: Z53.9 Procedure and treatment not carried out, unspecified reason (principal)

== ENCOUNTER → 2019-03-29 | Outpatient (CLI) | payer MEDICARE, OTHER ==
[2019-03-29 10:15] LABS: Basophils % (A) 1 %; Eosinophils # (A) 0.1 k/uL (0-0.7); Eosinophils % (A) 2 %; HCT 35.1 % (34.0-46.0); HGB 11.2 gm/dL (11.4-16.0); Lymphocytes # (A) 1.2 k/uL (1.0-4.8); Lymphocytes % (A) 19 %; MCH 27.6 pg (25.0-35.0); MCHC 31.9 g/dL (31.0-37.0); MCV 86.6 fL (80.0-100.0); Mean Platelet Volume 7.1; Monocytes # (A) 0.4 k/uL (0-1.0); Monocytes % (A) 6 %; Neutrophils # (A) 4.6 k/uL (1.3-7.7); Neutrophils % (A) 72 %; Platelet Count 281 k/uL (150-450); RBC 4.05 m/uL (3.80-5.40); RDW 14.7 % (11.5-15.5); WBC 6.5 k/uL (3.8-10.6)
[2019-03-29 16:27] LABS: Vitamin D 25 Hydroxy 98.8 ng/mL (30.0-100.0)
[2019-03-29 16:57] LABS: Magnesium 1.6 mg/dL (1.5-2.4)
[2019-03-29 16:58] LABS: African American GFR (CKD) 103.2 (60.0-200.0); Albumin 3.9 g/dL (3.80-4.90); Albumin/Globulin Ratio 1.44 (1.60-3.17); BUN/Creat Ratio 14.29 Ratio (12.00-20.00); Calcium 9.7 mg/dL (8.7-10.3); Globulin 2.7 g/dL (1.6-3.3); Potassium 4.4 mmol/L (3.5-5.5); Total Bilirubin 0.4 mg/dL (0.3-1.2); Total Protein 6.6 g/dL (6.2-8.2)
[2019-03-29 17:00] LABS: Hemoglobin A1C 6.5 % (4.0-6.0)
[2019-03-29 17:05] LABS: T4, Free (Free Thyroxine) 1.8 ng/dL (0.80-1.80)
== END | disposition home or self-care (01) ==
LOC: LABWHC1 09:16
PROVIDERS: ATTEND Family Medicine
DX: E11.9 Type 2 diabetes mellitus without complications (principal); E03.9 Hypothyroidism, unspecified; R92.2 Inconclusive mammogram; E78.5 Hyperlipidemia, unspecified; G25.0 Essential tremor; E55.9 Vitamin D deficiency, unspecified; E53.8 Deficiency of other specified B group vitamins
CPT/HCPCS: 36415; 80053; 80061; 82043; 82306; 82570; 82607; 83036; 83735; 84439; 84443; 85025

== ENCOUNTER → 2019-04-13 | Outpatient (CLI) | payer MEDICARE, OTHER ==
[2019-04-13 14:24] VITALS: BP 115/69; PULSE 66; RESP 18; TEMP 98.4; BMI 32.5
--- NOTE | 2019-04-13 15:03 | P.GSHP ---
History of Present Illness H&P Date: 04/13/19 Chief Complaint: Clinical stage IA, T1 N0 M0 ER/SC +Her2-G1, left breast cancer Estela is a 60-year-old white female who is noted to have a radiographic abnormality in her left breast. She subsequently underwent stereotactic core biopsy of this area. This was performed on 52 419. 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 This is stage IA. Review of the mammogram there was concern that the patient may have had some migration of the clip after the biopsy. The area biopsy however was identified with the radiologist. Also importance is the fact that there was some DCIS present in the specimen. The size of the lesion radiographically was 7 mm. The patient's breast size is 40the. Family history: 1. Maternal grandmother: Skin cancer 2. Patient: Cervical cancer Hormonal history: Medical: 12 1 miscarriage, did not breast-feed, first child born at 21 Menopause: 41 control pills colon 4 years Hormones: Negative Surgical history: 1. Cholecystectomy 2. Left knee replacement 2. Trigger finger 4. Left carpal tunnel Medical history: 1. Hidradenitis 2. Arthritis 3. Herniated disc in her back 4. Trauma 5. Diabetes 6. Hypothyroidism Social history: Smoked: Half a pack per day Alcohol: Rare Drugs: Negative - Constitutional Constitutional: Denies chills, Denies fever - EENT Eyes: denies blurred vision, denies pain Ears: bilateral: decreased hearing, tinnitus Ears, nose, mouth and throat: Denies headache, Denies sore throat - Breasts Breasts: bilateral: as per HPI - Cardiovascular Cardiovascular: Reports high blood pressure, Denies chest pain, Denies shortness of breath - Respiratory Comment: Emphysema - Gastrointestinal Comment: IBS history of hepatitis Gastrointestinal: Denies abdominal pain, Denies diarrhea, Denies nausea, Denies vomiting - Genitourinary (Female) Genitourinary: Denies dysuria, Denies hematuria - Menstruation Menstruation: Reports postmenopausal - Musculoskeletal Comment: arthritis - Integumentary Comment: Hidradenitis, under both arms, worse on the right, and bilateral groin - Neurological Comment: tremor Neurological: Denies numbness, Denies weakness - Psychiatric Psychiatric: Reports anxiety - Endocrine Endocrine: Reports weight change - Hematologic/Lymphatic Comment: none - Allergic/Immunologic Allergic/Immunologic: Reports as per HPI Past Medical History Past Medical History: COPD, Diabetes Mellitus, Hyperlipidemia, Hypertension, Thyroid Disorder Additional Past Medical History / Comment(s): Childhood Hepatitis A, hx pericarditis, DDD History of Any Multi-Drug Resistant Organisms: None Reported Past Surgical History: Cholecystectomy, Joint Replacement, Orthopedic Surgery Additional Past Surgical History / Comment(s): egd in past, left knee replacement, dae trigger fingers, right hand carpal tunnel Past Anesthesia/Blood Transfusion Reactions: No Reported Reaction Past Psychological History: Anxiety Additional Psychological History / Comment(s): states especially when awaiting procedures Smoking Status: Current every day smoker Past Alcohol Use History: Occasional Additional Past Alcohol Use History / Comment(s): started smoking age 16 (1965), smokes 1/2 ppd Past Drug Use History: None Reported - Past Family History Sister(s) Family Medical History: Deep Vein Thrombosis (DVT) Medications and Allergies Home Medications Medication Instructions Recorded Confirmed Type Aclidinium [place] [Tudorza 1 puff INHALATION BID 07/06/15 03/10/19 History Pressair] Aspirin 81 mg PO DAILY 07/06/15 03/10/19 History Atorvastatin [Lipitor] 40 mg PO HS 07/06/15 03/10/19 History Ergocalciferol [Vitamin D2] 50,000 unit PO Q14D 07/06/15 03/10/19 History Ferrous Sulfate [Feosol] 650 mg PO DAILY 07/06/15 03/10/19 History Fluticasone/Salmeterol [Advair 1 puff INHALATION RT-BID 07/06/15 03/10/19 History 250-50 Diskus] Levothyroxine Sodium [Synthroid] 50 mcg PO DAILY 07/06/15 03/10/19 History Magnesium Oxide [Magox 400] 400 mg PO DAILY 07/06/15 03/10/19 History Omeprazole [PriLOSEC] 20 mg PO AC-BRKFST 07/06/15 03/10/19 History Ramipril [Altace] 5 mg PO DAILY 07/06/15 03/10/19 History metFORMIN HCL [Glucophage] 1,000 mg PO BID 07/06/15 03/10/19 History Insulin Aspart [NovoLOG Flexpen] 5 unit SQ TID@0800,1200,1700 06/26/16 03/10/19 History Insulin Glargine [Lantus] 20 unit SQ HS 06/26/16 03/10/19 History Cyanocobalamin (Vitamin B-12) 1,000 mcg PO DAILY 07/28/17 03/10/19 History [Vitamin B-12] Furosemide [Lasix] 30 mg PO DAILY 07/28/17 03/10/19 History Potassium Chloride [K-Tab ER] 10 meq PO HS 07/28/17 03/10/19 History Propranolol HCl 60 mg PO DAILY 07/28/17 03/10/19 History Albuterol Inhaler [Ventolin Hfa 1 - 2 puff INHALATION RT-Q6H PRN 02/25/19 03/10/19 History Inhaler] Allergies Allergy/AdvReac Type Severity Reaction Status Date / Time codeine AdvReac Nausea Verified 04/13/19 14:24 Surgical - Exam Vital Signs Temp Pulse Resp BP Pulse Ox 98.4 F 66 18 115/69 99 04/13/19 14:21 04/13/19 14:21 04/13/19 14:21 04/13/19 14:21 04/13/19 14:21 BMI 32.6 - General well developed, well nourished, no distress - Eyes normal ocular movement - ENT no hearing loss, no congestion - Neck no masses, trachea midline - Respiratory normal respiratory effort, clear to auscultation - Cardiovascular Rhythm: regular Heart Sounds: normal: S1, S2 - Abdomen Abdomen: soft, non tender, no guarding, no rigid, no rebound - Integumentary normal turgor - Neurologic tremor - Musculoskeletal normal gait - Psychiatric oriented to time, oriented to person, oriented to place, speech is normal, memory intact breast exam: right breast: Multiple positional exam no dominant masses or nodules of concern left Axilla: Changes related to hidradenitis no discrete adenopathy Left breast: Multiple positional exam no dominant masses or nodules of concern Left axilla: Changes related to hidradenitis Bra size 40 DD Results Mammogram and pathology results reviewed, patient's case presented at tumor board Assessment and Plan Assessment: Impression: 1. Stage IA left breast cancer 2. Hidradenitis 3. Arthritis 4. Diabetes 5. Tremor 6. Herniated disc in the back 7. Hypothyroidism Risk and benefits of surgery been discussed with the patient and her sister. Options including lumpectomy plus radiation therapy, sentinel node biopsy plus or minus axillary node dissection versus mastectomy plus or minus immediate reconstruction with sentinel node biopsy possible axillary node dissection were discussed. The patient has opted for a lumpectomy with sentinel node biopsy possible axillary node dissection. She understands the risks and benefits and this is scheduled for the near future. Plan: 1. Lumpectomy with needle localization, sentinel node biopsy, possible axillary node dissection left breast 2. Medical clearance CC:
== END | disposition home or self-care (01) ==
LOC: WWCWWP 14:06
PROVIDERS: ATTEND Surgery
DX: Z53.9 Procedure and treatment not carried out, unspecified reason (principal)

== ENCOUNTER 2019-04-26 08:42 | Day surgery (SDC) | payer MEDICARE, OTHER ==
[2019-04-22 16:57] VITALS: BMI 32.2
[~2019-04-26 08:42] MED LIST: HEPARIN SODIUM,PORCINE 5,000 UNIT/ML 1 ML VIAL SQ ONE; LACTATED RINGERS 1,000 ML IV SCH; LIDOCAINE 1% 20 ML VIAL (10MG/ML) FOR IV START INTRADERMA PRN; MORPHINE SULFATE 2 MG/ML SYRINGE IV PRN; ONDANSETRON 4 MG/2 ML VIAL IVP ONE; ONDANSETRON 4 MG/2 ML VIAL IVP PRN; Pre Op ABX Message 1 EACH MISC MISCELLANE ONE; SCOPOLAMINE 1.5MG/72HR PATCH TRANSDERM ONE
[2019-04-26 09:07] LABS: Glucose,Whole Blood 105 mg/dL (75-99)
[2019-04-26] MEDS ORDERED: ALPRAZolam 0.25 MG TAB PO ONE (09:11)
--- NOTE | 2019-04-26 09:23 | P.PN ---
Progress Note - Text Progress Note Date: 04/26/19 The patient is a 60-year-old white female who was noted to have a radiographic abnormality in her left breast. She subsequently underwent a stereotactic core biopsy of this area. This was performed on . Pathology revealed an invasive well-differentiated ductal carcinoma, grade 1, ER/MT positive, HER- 2/shree negative. This is a stage IA lesion. Upon review of the mammogram there is concern that the patient may have had some migration of the clip after the biopsy. The area of the biopsy however was identified with the radiologist. Also of importance is the fact that there was some DCIS present in the specimen. The size of the lesion radiographically was approximately 7 mm. The patient has a size 40DD breast. Family history: 1. Maternal grandmother: Skin cancer 2. Patient: Cervical cancer Hormonal history: Menarche: 12 , 1 miscarriage, press-fit: No, and at 21 Menopause: 41 Visit control pills: 4 years Hormones: None Surgical history: 1. Cholecystectomy 2. Left knee replacement 3. Trigger finger 4. Left carpal tunnel Medical history: 1. Hidradenitis 2. Arthritis 3. Herniated disc in her back 4. Tremor 5. Diabetes 6. Hypothyroidism Social history: Smoke: One half pack per day Alcohol: Rare Drugs: Negative Review of systems: Constitutional: Negative HEENT: Wears glasses cataracts on the right I removed Breasts: As noted Cardiovascular: Pericarditis in the past Respiratory: Emphysema GI: Irritable bowel syndrome : Prior history of previous cervical cancer Musculoskeletal: Arthritis Psychiatric: Anxiety Vital Signs Intake & Output - Exam BMI 33.2 - Constitutional General appearance: Present: obese - EENT Eyes: Present: EOMI ENT: Present: hearing grossly normal - Neck Neck: Present: normal ROM - Respiratory Respiratory: bilateral: CTA - Cardiovascular Rhythm: regular Heart sounds: normal: S1, S2 - Integumentary Integumentary Comment(s): Bilateral axillary evidence of hidradenitis well-healed at this time Core biopsy site clean and dry no evidence of infection - Musculoskeletal Musculoskeletal: Present: gait normal - Psychiatric Psychiatric: Present: A&O x's 3, appropriate affect, intact judgment & insight - Additional findings Additional findings: Breast examination: Breasts: Multiple positional exam no dominant masses or nodules of concern Right axilla: Evidence of hidradenitis well-healed no adenopathy of concern Left breast: Multiple positional exam no evidence of infection related to the biopsy, no dominant masses or nodules of concern Left axilla: Evidence of hidradenitis, no adenopathy of concern Pathology: Invasive well-differentiated ductal carcinoma, grade 1, low-grade DCIS with associated calcifications, ER/MT positive, HER-2 negative Assessment and Plan Assessment: Impression: 1. Stage IA left breast cancer 2. Arthritis 3. Diabetes 4. Herniated disc and back 5. Tremor 6. Hypothyroid Plan: 1. Left breast lumpectomy and sentinel node biopsy possible axillary node dissection 2. Medical clearance 3. Preoperative appointment with radiation oncology 4. Follow-up with medical oncology 5. Presentation at tumor board Surgical options including mastectomy versus lumpectomy with radiation therapy were discussed with the patient. The patient wishes a lumpectomy to be performed . The patient will also undergo sentinel node biopsy possible axillary node dissection. She understands the risks and benefits and wishes to proceed. She understands that the left breast will be asymmetric to the right breast and despite that she wishes to have a resection. Cc: Dr. Ortiz
[2019-04-26] MEDS ORDERED: ceFAZolin IN SWFI 2 GM/20 ML SYRINGE IVP STA (09:45)
[2019-04-26] MEDS ORDERED: LIDOCAINE 1% INJ 10MG/ML (20 ML MDV) SQ ONE ×3 (10:10→13:39)
--- NOTE | 2019-04-26 10:56 | NM ---
EXAMINATION TYPE: NM sentinel node injection DATE OF EXAM: 04/26/2019 COMPARISON: NONE HISTORY: Left breast carcinoma TECHNIQUE AND FINDINGS: The procedure of sentinel lymph node injection was explained to the patient. The benefits, alternatives, and risks were discussed. An informed consent was then obtained. Overlying skin is cleaned with sterile alcohol. Lidocaine buffered with bicarbonate was used as anes thetic into the skin and subcutaneous tissue surrounding the nipple. Following this, 520 uCi Tc 99m Filtered Sulfur Colloid was injected upper outer portion of the left nipple intradermally. The injection sites were massaged by learning technologist for 10 minutes after injection. T he patient tolerated the procedure well without any immediate complication. The patient was kept in the radiology department for short stay after the procedure and then taken to surgery for surgical pr ocedure what is presumed intraoperative gamma probe will be used for sentinel lymph node detection. IMPRESSION: Left breast radiotracer injection for sentinel node localization as above.
[2019-04-26] MEDS ORDERED: HEPARIN SODIUM,PORCINE 5,000 UNIT/ML 1 ML VIAL SQ ONE (12:39)
--- NOTE | 2019-04-26 12:40 | P.NAPBC ---
NAPBC Queries - NAPBC Queries Was patient's case review presented at [facility] tumor board? If no, comment.: Yes Was patient's pathology reviewed at [facility]? If no, comment.: Yes Was breast conservation surgery offered? If no, comment.: Yes Was sentinel node biopsy offered? If no, comment.: Yes Was diagnosis confirmed by percutaneous core biopsy? If no, comment.: Yes Is patient mastectomy patient?: No Clinical Stage: Stage IA
[2019-04-26] MEDS ORDERED: ePHEDrine SULFATE/0.9% NACL/PF 50 MG/5 ML SYRINGE IV ONE (13:09)
[2019-04-26] MEDS ORDERED: LIDOCAINE 1% INJ 10MG/ML (20 ML MDV) ONE (13:09)
[2019-04-26] MEDS ORDERED: PHENYLEPHRINE-0.9% NACL SYG 1 MG/10 ML SYRINGE ONE (13:09)
[2019-04-26] MEDS ORDERED: MIDAZOLAM 2 MG/2 ML VIAL ONE (13:09)
[2019-04-26] MEDS ORDERED: PROPOFOL 10 MG/ML 20 ML VIAL IV ONE (13:09)
[2019-04-26] MEDS ORDERED: fentaNYL (PF) 50 MCG/ML 2 ML AMP ONE (13:09)
[2019-04-26] MEDS ORDERED: LACTATED RINGERS 1,000 ML IV ONE (14:00)
--- NOTE | 2019-04-26 14:57 | P.OP ---
Date of Procedure: 04/26/19 Preoperative Diagnosis: Left breast cancer Postoperative Diagnosis: Same Procedure(s) Performed: Left breast sentinel node biopsy, lumpectomy of the axillary incision Anesthesia: KAITLYNN Surgeon: Dali Conroy Estimated Blood Loss (ml): 5 IV fluids (ml): 600 Pathology: other ([place] node, breast tissue) Condition: stable Disposition: same day Indications for Procedure: Left breast core biopsy positive for invasive ductal carcinoma Operative Findings: Hidradenitis, fibrofatty breast tissue Description of Procedure: The patient is a 68-year-old white female with a core biopsy-proven carci noma of the left breast. The patient opted for a lumpectomy with sentinel node biopsy. Of concern is the fact that the patient has had prior hidradenitis. Before coming to the operating room the area of concern was localized via needle localization in the left breast. The clip had migrated slightly and this was taken into consideration by the radiologist. Additionally radioactive substance was injected in the periareolar area to identify the sentinel lymph node. The patient was brought to the operating room. Following induction of anesthesia the left breast and axilla were prepped and draped in a sterile fashion. Utilizing the neoprobe the area of greatest radioactivity was identified. An incision was made just inferior to the hidradenitis. Dissection was carried into the axillary tissue. Using the neoprobe the lymph node with greatest radioactivity was identified. Dissection was carried down to this and using the Harmonic scalpel the node was excised. The 10 second count was approximately 5000. The wound was irrigated. The background count was approximately 5 at 10 seconds. Frozen section evaluation was not performed. No other adenopathy of concern was palpated. The area of the breast was approached. It was felt that this could be approached via the axillary incision. Using the lighted retractor the breast tissue was retracted medially. Dissection was performed to the area of the shaft of the needle. This area was grasped using a Allis clamp. The tissue was carefully dissected around the wire. This was dissected inferiorly to the hook of the needle. Surrounding tissue was widely excised. Posteriorly dissection was performed to the pectoralis muscle. The tissue was excised. The tissue was painted for orientation. The tissue was sent for radiographic evaluation. This was reviewed in person with the radiologist. The area of concern was felt to have been removed. The wound was examined for hemostasis. No evidence of bleeding was identified. Titanium clips were placed to manny the area. A DEMETRIUS drain was placed to assure there would be no fluid accumulation in the area. The deep tissues were closed using 3-0 Vicryl suture. The skin was closed using a nylon suture. The reason for this was secondary to the changes of hidradenitis. The drain was secured with a 3-0 nylon suture. The patient tolerated the procedure in stable condition. All instrument and sponge counts were correct at the end of the case.
[2019-04-26 14:58] VITALS: TEMP 97.1
--- NOTE | 2019-04-26 15:00 | P.DS ---
Providers Attending physician: Dali Conroy Primary care physician: Xiomara Ortiz Plan - Discharge Summary Discharge Rx Participant: Yes New Discharge Prescriptions: No Action Fluticasone/Salmeterol [Advair 250-50 Diskus] 1 puff INHALATION RT-BID Ferrous Sulfate [Feosol] 650 mg PO DAILY Levothyroxine Sodium [Synthroid] 50 mcg PO DAILY Aspirin 81 mg PO DAILY Omeprazole [PriLOSEC] 20 mg PO AC-BRKFST Atorvastatin [Lipitor] 40 mg PO HS Ramipril [Altace] 2.5 mg PO DAILY metFORMIN HCL [Glucophage] 1,000 mg PO BID Magnesium Oxide [Magox 400] 400 mg PO DAILY Aclidinium [place] [Tudorza Pressair] 1 puff INHALATION BID Insulin Glargine [Lantus] 20 unit SQ HS Insulin Aspart [NovoLOG Flexpen] 5 unit SQ TID@0800,1200,1700 Propranolol HCl 60 mg PO DAILY Potassium Chloride [K-Tab ER] 10 meq PO HS Furosemide [Lasix] 30 mg PO DAILY Cyanocobalamin (Vitamin B-12) [Vitamin B-12] 1,000 mcg PO DAILY Albuterol Inhaler [Ventolin Hfa Inhaler] 1 - 2 puff INHALATION RT-Q6H PRN PRN Reason: Shortness Of Breath Acetaminophen [Tylenol Extra Strength] 1,000 mg PO DAILY PRN PRN Reason: Pain Discharge Medication List Aclidinium [place] [Tudorza Pressair] 1 puff INHALATION BID 07/06/15 [History] Aspirin 81 mg PO DAILY 07/06/15 [History] Atorvastatin [Lipitor] 40 mg PO HS 07/06/15 [History] Ferrous Sulfate [Feosol] 650 mg PO DAILY 07/06/15 [History] Fluticasone/Salmeterol [Advair 250-50 Diskus] 1 puff INHALATION RT-BID 07/06/15 [History] Levothyroxine Sodium [Synthroid] 50 mcg PO DAILY 07/06/15 [History] Magnesium Oxide [Magox 400] 400 mg PO DAILY 07/06/15 [History] Omeprazole [PriLOSEC] 20 mg PO AC-BRKFST 07/06/15 [History] Ramipril [Altace] 2.5 mg PO DAILY 07/06/15 [History] metFORMIN HCL [Glucophage] 1,000 mg PO BID 07/06/15 [History] Insulin Aspart [NovoLOG Flexpen] 5 unit SQ TID@0800,1200,1700 06/26/16 [History] Insulin Glargine [Lantus] 20 unit SQ HS 06/26/16 [History] Cyanocobalamin (Vitamin B-12) [Vitamin B-12] 1,000 mcg PO DAILY 07/28/17 [History] Furosemide [Lasix] 30 mg PO DAILY 07/28/17 [History] Potassium Chloride [K-Tab ER] 10 meq PO HS 07/28/17 [History] Propranolol HCl 60 mg PO DAILY 07/28/17 [History] Albuterol Inhaler [Ventolin Hfa Inhaler] 1 - 2 puff INHALATION RT-Q6H PRN 02/25/19 [History] Acetaminophen [Tylenol Extra Strength] 1,000 mg PO DAILY PRN 04/22/19 [History] Follow up Appointment(s)/Referral(s): Dali Conroy MD [STAFF PHYSICIAN] - 3 Days Activity/Diet/Wound Care/Special Instructions: Teach family drain care Patient is not to drive until seen by Dr. Ochoa Patient may shower after 48 hours Discharge Disposition: HOME SELF-CARE
[2019-04-26 15:07] VITALS: RESP 16
[2019-04-26 16:01] VITALS: BP 110/68; PULSE 61
[2019-04-26 16:46] LABS: Glucose,Whole Blood 66 mg/dL (75-99)
[2019-04-26 16:46] LABS: Glucose,Whole Blood 62 mg/dL (75-99)
[2019-04-26 16:46] LABS: Glucose,Whole Blood 66 mg/dL (75-99)
--- NOTE | 2019-04-26 19:06 | MM ---
EXAMINATION TYPE: MG surgical specimen LT, MG pre op needle loc LT DATE OF EXAM: 04/26/2019 COMPARISON: NONE CLINICAL HISTORY: Breast carcinoma, abnormal mammogram TECHNIQUE: Needle localization with wire placement and surgical excision of area of concern in the left breast. FINDINGS: The procedure of needle localization with wire placement and than surgical excision was explained to the patient. Benefits, alternatives, and risks were discussed. An informed consent was then obtained. The shortest pathway for procedure was chosen. Shortest pathway was cc approach. The overlying skin was prepped and draped in usual sterile fashion. Lidocaine buffered with bicarbonate was used as anesthetic into the skin and subcutaneous tissue up to the level of area of concern. A 9 cm needle was used. It was placed via a cc approach under mammographic guidance. Subsequent 90 degrees mammogram show the needle to be in satisfactory position relative to the targeted area. At this point, wire was placed and the needle was withdrawn. The wire was fixed to patient's skin. Images were marked for surgeon. The patient tolerated the procedure well without any immediate complication. The patient was kept in the radiology department for short stay after the procedure and then taken to surgery for surgical excision. Targeted calcifications and wire are identified in specimen mammogram. The patient was kept in hospital for short stay after the procedure and then discharged home in stable condition. IMPRESSION: Successful, uncomplicated needle localization with wire placement and surgical excision of suspicious group of calcifications in the left breast, full pathology results to follow. Pathology Results: Malignant A. SENTINEL LYMPH NODE #1, BIOPSY: Lymph node negative for metastatic malignancy. CK7 and SARAH immunoperoxidase stains are confirmatory (controls appropriate). B. AXILLARY CONTENTS: Benign fibroadipose tissue. No lymph nodes identified. C. LEFT BREAST, LUMPECTOMY: Invasive ductal carcinoma (Grade 1) and ductal carcinoma in situ (DCIS), margins negative. See Surgical Pathology Cancer Case Summary. Recommendation Surgical consult of the left breast. DAVE
== END 2019-04-26 16:47 | disposition home or self-care (01) ==
LOC: OR 08:42
PROVIDERS: ATTEND Surgery
DX: C50.912 Malignant neoplasm of unspecified site of left female breast (principal); E03.9 Hypothyroidism, unspecified; E11.9 Type 2 diabetes mellitus without complications; F17.210 Nicotine dependence, cigarettes, uncomplicated; Z79.4 Long term (current) use of insulin; Z79.82 Long term (current) use of aspirin; Z17.0 Estrogen receptor positive status [ER+]; Z80.8 Family history of malignant neoplasm of other organs or systems; Z85.41 Personal history of malignant neoplasm of cervix uteri; E66.9 Obesity, unspecified; Z68.33 Body mass index [BMI] 33.0-33.9, adult; Z98.41 Cataract extraction status, right eye; Z88.5 Allergy status to narcotic agent; Z88.8 Allergy status to other drugs, medicaments and biological substances; J43.9 Emphysema, unspecified; E78.5 Hyperlipidemia, unspecified; Z79.890 Hormone replacement therapy; Z79.899 Other long term (current) drug therapy
CPT/HCPCS: 19301; 38500; 88305; 88342; 88307; 88341; 76098; 19281; 38792; A9520; J2250; J1644; J2405; J2001; J3010; J2370; J2704; J0690

== ENCOUNTER → 2019-04-29 | Outpatient (CLI) | payer MEDICARE, OTHER ==
[2019-04-29 15:06] VITALS: BP 116/72; PULSE 71; RESP 18; TEMP 98.4; BMI 32.2
--- NOTE | 2019-04-29 15:14 | P.PN ---
Subjective Progress Note Date: 04/29/19 There is a 69-year-old white female status post left breast lumpectomy and sentinel node biopsy. Pathology reveals a grade 1 invasive ductal carcinoma which was 4 mm in size and margins are negative, she does have some DCIS distance from closest margin 1 mm from blue inked margin. The patient had 2 lymph nodes removed both were negative for cancer. Primary tumor is a [id number]+CT+Hr2-Grade1; Stage 1A. The patient's drainage has been minimal. The patient has no complaints postoperatively. Objective - Constitutional General appearance: Present: average body habitus - EENT Eyes: Present: EOMI ENT: Present: hearing grossly normal - Respiratory Respiratory: bilateral: diminished - Cardiovascular Rhythm: regular Heart sounds: normal: S1, S2 - Integumentary Integumentary Comment(s): incision: Incision is near the area of hidradenitis, it is slightly irritated DEMETRIUS drainage output has been minimal and is serous in nature Integumentary: Present: normal turgor - Musculoskeletal Musculoskeletal: Present: gait normal - Psychiatric Psychiatric: Present: A&O x's 3, appropriate affect, intact judgment & insight - Additional findings Additional findings: Incision left axilla: Slightly irritated no definite infection Assessment and Plan Assessment: Impression: 1. Stage IA left breast cancer completely excised 2. Slight irritation of incision 3. Patient doing well postoperative Plan: 1. Prescription given for Keflex 2. Follow up with medical oncology 3. Follow-up with radiation oncology 4. Follow-up here next week Cc: Dr. Ortiz
== END | disposition home or self-care (01) ==
LOC: WWCWWP 14:46
PROVIDERS: ATTEND Surgery
DX: Z53.9 Procedure and treatment not carried out, unspecified reason (principal)

== ENCOUNTER → 2019-05-05 | Outpatient (CLI) | payer MEDICARE, OTHER ==
[2019-05-05 15:41] VITALS: BP 144/77; PULSE 54; RESP 18; TEMP 98.4; BMI 31.8
--- NOTE | 2019-05-05 15:47 | P.PN ---
Progress Note - Text Progress Note Date: 05/05/19 Patient is a 69-year-old white female status post left breast lumpectomy and sentinel node biopsy on 04-26-19. She is doing well at this time. She does have a history of hidradenitis in the contralateral axilla has some purulent drainage. She will be started on an antibiotic. The patient has not had any fever or chills. She is not having any complaints related to pain. Lungs: Decreased breath sounds at the bases, continues to smoke 10 cigarettes/day Heart: Regular rate and rhythm Extremities examination of the left axillary incision reveals some irritation this is in the vicinity of hidradenitis there is no evidence of infection Right axilla some purulent drainage is noted Impression: 1. Stage I a left breast cancer completely excised 2. Hidradenitis right axilla with some purulent drainage 3. No evidence of infection on the left incision Plan: 1. Patient will be started on Keflex and cultures obtained 2. Follow-up with medical oncology 3. Follow-up with radiation oncology 4. Follow-up care in 2 weeks time CC: Dr. Ortiz
== END | disposition home or self-care (01) ==
LOC: WWCWWP 14:52
PROVIDERS: ATTEND Surgery
DX: N64.9 Disorder of breast, unspecified (principal)
CPT/HCPCS: 76098; 87070; 87075; 87205

== ENCOUNTER → 2019-05-13 | Outpatient (CLI) | payer MEDICARE, OTHER ==
[2019-05-13 10:58] VITALS: BP 131/75; PULSE 58; RESP 18; TEMP 98.3; BMI 31.8
--- NOTE | 2019-05-13 11:08 | P.PN ---
Progress Note - Text Progress Note Date: 05/13/19 Patient is a 69-year-old white female status post left breast lumpect[place] [address]. Pathology revealed a grade 1 invasive ductal carcinoma 4 mm in size margins negative. She did have some DCIS distance from the closest margin was 1 mm. Patient had 2 lymph nodes removed negative for cancer. Tumor stage was a 1A. The patient on her last visit had some minimal drainage under the contralateral arm she has a known history of hidradenitis. She has no complaints of drainage or problems with her incision which is on the left breast at this time. She was given a prescription for Keflex, and developed a yeast infection. Her cultures were positive for Cor neybacterium. She states that approximately a week ago she woke up with pain in her left great toe. She is seeing a stock worker who cut to size of the toenail and wishes to start her on Levaquin. She will stop the Keflex and take the Levaquin. Physical exam: Right axilla: Superior aspect in the area of hidradenitis has minimal amount of persistent drainage Lungs: Clear Heart: Regular rate and rhythm Left breast/axillary incision is clean and dry with no evidence of infection at this time it should be noted that this is an area of hidradenitis as well Left great toe is swollen nail has been recently cut via podiatry Impression: 1. Well-healed scar left breast 2. Hidradenitis right axilla decreased drainage 3. Swollen left great toe 4. Yeast infection of vaginal area Plan: 1. Diflucan 2. Patient was seen stock worker and started her on Levaquin 3. Follow-up with medical and radiation oncology 4. If the area in the right axilla continues to drain will recommend follow-up with Dr. Luciano Bravo infectious disease CC: DR. Ortiz
== END ==
LOC: WWCWWP 10:13
PROVIDERS: ATTEND Surgery
DX: Z53.9 Procedure and treatment not carried out, unspecified reason (principal)

== ENCOUNTER → 2019-08-17 | Outpatient (CLI) | payer MEDICARE, OTHER ==
[2019-08-17 11:06] LABS: Basophils % (A) 1 %; Eosinophils # (A) 0.1 k/uL (0-0.7); Eosinophils % (A) 1 %; HCT 37.9 % (34.0-46.0); HGB 12.5 gm/dL (11.4-16.0); Lymphocytes # (A) 0.8 k/uL (1.0-4.8); Lymphocytes % (A) 10 %; MCH 29.1 pg (25.0-35.0); MCHC 33.1 g/dL (31.0-37.0); MCV 87.9 fL (80.0-100.0); Mean Platelet Volume 6.7; Monocytes # (A) 0.4 k/uL (0-1.0); Monocytes % (A) 6 %; Neutrophils # (A) 6.4 k/uL (1.3-7.7); Neutrophils % (A) 82 %; Platelet Count 276 k/uL (150-450); RBC 4.31 m/uL (3.80-5.40); RDW 14.7 % (11.5-15.5); WBC 7.8 k/uL (3.8-10.6)
[2019-08-17 16:51] LABS: T4, Free (Free Thyroxine) 1.8 ng/dL (0.80-1.80)
[2019-08-17 17:17] LABS: African American GFR (CKD) 87.2 (60.0-200.0); Albumin 4.4 g/dL (3.80-4.90); Anion Gap 6.5 mmol/L (4.00-12.00); Carbon Dioxide 30.5 mmol/L (21.6-31.8); Chol/HDL Ratio 2.82; Globulin 2.2 g/dL (1.6-3.3); LDL Cholesterol,Calculated 68.4 mg/dL (0.0-131.0); Potassium 4.6 mmol/L (3.5-5.5); Total Bilirubin 0.9 mg/dL (0.3-1.2); Total Protein 6.6 g/dL (6.2-8.2); VLDL Calculation 13.6 mg/dL (5.00-40.00)
[2019-08-17 17:54] LABS: Hemoglobin A1C 6.1 % (4.0-6.0)
== END | disposition home or self-care (01) ==
LOC: LABWHC1 10:03
PROVIDERS: ATTEND Family Medicine
DX: I10 Essential (primary) hypertension (principal); E78.2 Mixed hyperlipidemia; L73.2 Hidradenitis suppurativa; E11.9 Type 2 diabetes mellitus without complications; E53.8 Deficiency of other specified B group vitamins
CPT/HCPCS: 36415; 80053; 80061; 82043; 82550; 82570; 82607; 83036; 84439; 84443; 85025

== ENCOUNTER → 2019-09-07 | Outpatient (CLI) | payer MEDICARE, OTHER ==
[2019-09-07 16:34] LABS: African American GFR (CKD) 107.8 (60.0-200.0); Anion Gap 6.2 mmol/L (4.00-12.00); BUN/Creat Ratio 18.33 Ratio (12.00-20.00); Calcium 10.4 mg/dL (8.7-10.3); Carbon Dioxide 31.8 mmol/L (21.6-31.8); Chol/HDL Ratio 3.18; LDL Cholesterol,Calculated 74.4 mg/dL (0.0-131.0); VLDL Calculation 12.6 mg/dL (5.00-40.00)
[2019-09-07 19:24] LABS: Hemoglobin A1C 6.3 % (4.0-6.0)
[2019-09-07 21:43] LABS: Urine Creatinine 177.9 mg/dL
== END | disposition home or self-care (01) ==
LOC: LABWHC1 08:26
PROVIDERS: ATTEND Internal Medicine
DX: E11.65 Type 2 diabetes mellitus with hyperglycemia (principal)
CPT/HCPCS: 36415; 80048; 80061; 82043; 82570; 83036

== ENCOUNTER → 2019-09-15 | Outpatient (CLI) | payer MEDICARE, OTHER ==
[2019-09-15 13:06] VITALS: BP 130/74; PULSE 72; RESP 18; TEMP 98.4
--- NOTE | 2019-09-15 13:31 | P.PN ---
Subjective Progress Note Date: 09/15/19 Principal diagnosis: Stage IA left breast cancer T1 N0 M0 ER/NM positive HER-2/shree negative grade 1 stage IA Estela is a 69-year-old white female status post left breast lumpectomy and sentinel node biopsy. The pathology revealed a grade 1A invasive ductal carcinoma which was 4 mm in size and the margins were negative. She did have some DCIS and distance from the closest margin was 1 mm from the blue inked margin. He completed 6 weeks of radiation therapy. She is taking a anti- hormone medication. She did not have any chemotherapy. She has no complaints at this time. Objective - Vital Signs Vital signs: Vital Signs Temp 98.4 F 09/15/19 13:04 Pulse 72 09/15/19 13:04 Resp 18 09/15/19 13:04 BP 130/74 09/15/19 13:04 Pulse Ox 100 09/15/19 13:04 Intake & Output 09/14/19 09/15/19 09/15/19 18:59 06:59 18:59 Weight 76.204 kg - Exam BMI 32.8 - Constitutional General appearance: Present: average body habitus - EENT Eyes: Present: EOMI ENT: Present: hearing grossly normal - Neck Neck: Present: normal ROM - Respiratory Respiratory: bilateral: CTA - Cardiovascular Rhythm: regular Heart sounds: normal: S1, S2 - Gastrointestinal General gastrointestinal: Present: soft - Integumentary Integumentary: Present: normal turgor - Psychiatric Psychiatric: Present: A&O x's 3, appropriate affect - Additional findings Additional findings: Right breast: Multiple positional exam no dominant masses or nodules of concern, fibrocystic changes Right axilla, extensive hidradenitis with drainage at superior and inferior aspect cultures obtained Left breast: Multiple positional exam no dominant masses or nodules of concern no evidence of recurrent cancer Left axilla: Hidradenitis which is much better than on the right side no evidence of any drain or infection in the left axilla Bilateral groins reveals some hidradenitis as well not as inflamed as in the right axilla Assessment and Plan Assessment: Impression: 1. Patient status post left breast lumpectomy stage IA breast cancer status post radiation and patient presently on an anti-hormonal therapy 2. No evidence of recurrent left breast cancer 3. Extensive right axillary hidradenitis with drainage cultures obtained 4. diabetes 5. Nicotine dependence may be exacerbating hidradenitis Plan: 1. Antibiotic for infected right hidradenitis 2. Continue to follow with medical and radiation oncology 3. Follow-up here in 3 months related to her left breast cancer 4. Have discussed possible surgical resection of area of hidradenitis right axilla we will readdress this when patient returns after antibiotic treatment Cc: Dr. Ortiz Time 25 minutes, > 50% counseling and planning
== END | disposition home or self-care (01) ==
LOC: WWCWWP 12:24
PROVIDERS: ATTEND Surgery
DX: L73.2 Hidradenitis suppurativa (principal)
CPT/HCPCS: 87070; 87205

== ENCOUNTER 2019-10-07 18:54 | Emergency (ER) | payer MEDICARE, OTHER ==
[2019-10-07] MEDS ORDERED: DIPH,PERTUS(ACELL)TETVAC-LF 0.5 ML VIAL IM ONE (19:39)
[2019-10-07] MEDS ORDERED: LORazepam 2 MG/ML INJ IV STA (20:17)
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
[2019-10-07 20:31] LABS: Basophils % (A) 1 %; Eosinophils # (A) 0.2 k/uL (0-0.7); Eosinophils % (A) 2 %; HCT 35.2 % (34.0-46.0); Lymphocytes # (A) 1.2 k/uL (1.0-4.8); Lymphocytes % (A) 14 %; MCH 29.7 pg (25.0-35.0); MCHC 34.1 g/dL (31.0-37.0); MCV 87.1 fL (80.0-100.0); Monocytes # (A) 0.5 k/uL (0-1.0); Monocytes % (A) 6 %; Neutrophils # (A) 6.5 k/uL (1.3-7.7); Neutrophils % (A) 77 %; Platelet Count 250 k/uL (150-450); RBC 4.05 m/uL (3.80-5.40); RDW 13.9 % (11.5-15.5); WBC 8.5 k/uL (3.8-10.6)
[2019-10-07 20:38] LABS: INR 0.9 (<1.2); Prothrombin Time 9.8 sec (9.0-12.0)
[2019-10-07 20:43] LABS: ALT 20 U/L (4-34); AST 50 U/L (14-36); African American GFR (CKD) >90 (>60 ml/min/1.73 sqM); Albumin 4.3 g/dL (3.5-5.0); Alcohol <10 mg/dL; Alkaline Phosphatase 108 U/L (38-126); Anion Gap 8 mmol/L; Blood Urea Nitrogen 13 mg/dL (7-17); Calcium 10.8 mg/dL (8.4-10.2); Carbon Dioxide 29 mmol/L (22-30); Chloride 102 mmol/L (98-107); Glucose 102 mg/dL (74-99); Non-African American GFR(CKD) >90 (>60 ml/min/1.73 sqM); Sodium 139 mmol/L (137-145); Total Bilirubin 0.9 mg/dL (0.2-1.3); Total Protein 7.6 g/dL (6.3-8.2)
[2019-10-07 21:03] LABS: Potassium 4.7 mmol/L (3.5-5.1)
--- NOTE | 2019-10-07 21:37 | XR ---
EXAMINATION TYPE: XR pelvis AP view DATE OF EXAM: 10/07/2019 COMPARISON: NONE HISTORY: Pain. TECHNIQUE: Single view FINDINGS: Pelvic ring is intact. Proximal femurs and hip joints are intact. Sacroiliac joints are int act. There is acetabular spurring. IMPRESSION: No acute abnormality of the pelvis. Osteoarthritis in the hip joints.
--- NOTE | 2019-10-07 21:39 | XR ---
EXAMINATION TYPE: XR chest 1V portable DATE OF EXAM: 10/07/2019 COMPARISON: 07/08/2019 HISTORY: Pain TECHNIQUE: Single view FINDINGS: There is no heart failure nor confluent pneumonic infiltrate. There are chest leads. Costop hrenic angles are clear. There is no pleural effusion or pneumothorax. IMPRESSION: No active cardiopulmonary disease. No change.
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
[2019-10-07] MEDS ORDERED: MORPHINE SULFATE 4 MG/ML SYRINGE IVP STA (22:01)
[2019-10-07] MEDS ORDERED: ONDANSETRON 4 MG/2 ML VIAL IVP STA (22:01)
[2019-10-07 23:04] LABS: Appearance,Urine Clear (Clear); Bilirubin,Urine Negative (Negative); Blood,Urine Negative (Negative); Color,Urine Yellow; Glucose,Urine (UA) Negative (Negative); Ketones,Urine Negative (Negative); Leukocyte Esterase,Urine Negative (Negative); Nitrite,Urine Negative (Negative); PH, Urine 5.5 (5.0-8.0); Protein,Urine Negative (Negative); Specific Gravity,Urine 1.027 (1.001-1.035); Urobilinogen,Urine <2.0 mg/dL (<2.0)
[2019-10-07 23:25] VITALS: BP 125/74; PULSE 78; RESP 18; TEMP 97.3
[2019-10-07 23:32] LABS: Amphetamine Screen,Urine Not Detected (NotDetected); Barbiturate Screen,Urine Not Detected (NotDetected); Benzodiazepines Screen,Urine Not Detected (NotDetected); Cocaine Screen,Urine Not Detected (NotDetected); Methadone Screen, Urine Not Detected (NotDetected); Opiate Screen,Urine Detected (NotDetected); Oxycodone Screen, Urine Not Detected (NotDetected); Phencyclidine Screen,Urine Not Detected (NotDetected); Tricyclic Antidepressant,Urine Not Detected (NotDetected); Urn Cannabinoid Scrn Not Detected (NotDetected)
== END 2019-10-07 23:25 | disposition home or self-care (01) ==
LOC: EC 18:54
DX: S16.1XXA Strain of muscle, fascia and tendon at neck level, initial encounter (principal); R10.13 Epigastric pain; J44.9 Chronic obstructive pulmonary disease, unspecified; E11.9 Type 2 diabetes mellitus without complications; E78.5 Hyperlipidemia, unspecified; K21.9 Gastro-esophageal reflux disease without esophagitis; I10 Essential (primary) hypertension; M16.0 Bilateral primary osteoarthritis of hip; F41.0 Panic disorder [episodic paroxysmal anxiety]; F17.200 Nicotine dependence, unspecified, uncomplicated; Z79.82 Long term (current) use of aspirin; Z79.890 Hormone replacement therapy; Z79.4 Long term (current) use of insulin; Z79.899 Other long term (current) drug therapy; Z91.048 Other nonmedicinal substance allergy status; Z88.5 Allergy status to narcotic agent; Z85.3 Personal history of malignant neoplasm of breast; Z85.41 Personal history of malignant neoplasm of cervix uteri; Z96.652 Presence of left artificial knee joint; V43.52XA Car driver injured in collision with other type car in traffic accident, initial encounter; Y92.410 Unspecified street and highway as the place of occurrence of the external cause
CPT/HCPCS: 36415; 93005; 86900; 86901; 80053; 84484; 85025; 85610; 85730; 86850; 81003; 80306; 72170; 71045; 72125; 70450; 74177; 90715; 99285; 96374; 96375 ×2; 90471; G0480; J2060; J2270; J2405; Q9967; 80320

== ENCOUNTER → 2019-10-17 | Outpatient (CLI) | payer MEDICARE, OTHER ==
--- NOTE | 2019-10-17 14:57 | MR ---
EXAMINATION TYPE: MR brain wo/w con DATE OF EXAM: 10/17/2019 COMPARISON: MRI brain dated 01/25/2019 HISTORY: Malignant neoplasm of breast, benign neoplasm of meninges TECHNIQUE: Multiplanar, multisequence images of the brain and brainstem is performed without and with IV contras t, utilizing 7 mL intravenous Gadavist . FINDINGS: Diffusion weighted images demonstrate no evidence of a recent infarct or other diffusion ab normality. There is no extra-axial fluid collection. Few punctate foci of nonspecific white matter c hange are again seen with old right thalamus lacunar infarct and left parietal lacunar infarct that a ppears chronic. The ventricular system and cisternal spaces are again prominent in size symmetricall y compared with age-related volume loss. The brain volume is age appropriate. Low-lying cerebellar tonsils are again incidentally noted. Partially empty sella turcica. The cranioc ervical junction appears within normal limits. The dural venous sinuses appear patent. The visualiz ed sinuses are clear and the globes are intact. Similar prominence of perineural fluid surrounding th e optic nerves. There is a similar-appearing right parotid gland nonenhancing T2 hyperintense cystic lesion. Partial opacification of the left mastoid air cells is redemonstrated. The questionable small arachnoid cyst at the posterior midbrain is less conspicuous on today's exam. There is a similar size of the extra-axial right parietal dural mass measuring approximately 1.0 x 0. 4 x 1.0 cm there is posterior prior 0.9 x 0.4 x 0.8 cm. However there appears to be slight increase i n degree of leptomeningeal enhancement, that is slightly asymmetric greater in the right hemisphere t monk left. This appears new in comparison to the MRI. The probable meningioma however appears unchange d in size from the MRI of 2013. IMPRESSION: 1. No significant enlargement of the right parietal extra-axial mass in comparison to the prior exam of 01/25/2019 and a similar appearance in comparison to the prior 2013. This is favored to represent a small extra-axial benign meningioma. 2. New leptomeningeal enhancement. Lumbar puncture could be considered in the appropriate clinical se tting for further evaluation. Of note there are low-lying cerebellar tonsils. 3. Stable cystic right parotid gland nonenhancing lesion. 4. Old multifocal lacunar infarcts and mild burden nonspecific white matter change, likely on the bas is of chronic microangiopathy.
== END | disposition home or self-care (01) ==
LOC: RADMRIMAIN 10:58
PROVIDERS: ATTEND Radiology Radiation Oncology
DX: D32.9 Benign neoplasm of meninges, unspecified (principal); R90.89 Other abnormal findings on diagnostic imaging of central nervous system; I63.9 Cerebral infarction, unspecified; Z17.0 Estrogen receptor positive status [ER+]
CPT/HCPCS: 70553; A9585

== ENCOUNTER → 2019-10-17 | Outpatient (CLI) | payer OTHER ==
--- NOTE | 2019-10-17 12:41 | XR ---
EXAMINATION TYPE: XR ribs bilateral DATE OF EXAM: 10/17/2019 COMPARISON: NONE HISTORY: Pain TECHNIQUE: 4 views of the ribs were obtained bilaterally FINDINGS: There is a fracture involving the anterior margin of the right fifth rib. Arthropathy of the shoulder noted. Surgical clips in the gallbladder fossa incidentally noted. Remaining osseous structures inta ct. Left rib cage appears intact with no definite acute displaced rib fracture. Arthropathy of the left s houlder noted. Surgical clips overlying the left breast. Degenerative change of the spine with hypertrophic spurring. IMPRESSION: 1. Acute fracture anterior margin right fifth rib. 2. Left rib cage intact with no acute fracture.
== END | disposition home or self-care (01) ==
LOC: RADXRMAIN 11:09
PROVIDERS: ATTEND Family Medicine
DX: S22.31XA Fracture of one rib, right side, initial encounter for closed fracture (principal)
CPT/HCPCS: 71110

== ENCOUNTER → 2019-11-21 | Outpatient (CLI) | payer MEDICARE, OTHER ==
--- NOTE | 2019-11-22 08:54 | MM ---
Reason for exam: follow-up at short interval from prior study. History: Patient is postmenopausal and has history of breast cancer at age 68. Malignant MG pre op needle loc LT of the left breast, April 26, 2019. Lumpectomy of the left breast, April 26, 2019. Malignant MG stereo VAD BX LT of the left breast, March 04, 2019. Taking antineoplastic for 1 year. Physical Findings: Nurse did not find any significant physical abnormalities on exam. MG 3D Diag Mammo W/Cad MOLLY Bilateral CC and MLO view(s) were taken. The breast tissue is heterogeneously dense. This may lower the sensitivity of mammography. Benign appearing bilateral calcifications. Post therapy change on the left. Left retroareolar anterior depth asymmetry on spot compression view. These results were verbally communicated with the patient and result sheet given to the patient on 11/21/19. ASSESSMENT: Benign, BI-RAD 2 RECOMMENDATION: Follow-up diagnostic mammogram of both breasts in 1 year.
== END | disposition home or self-care (01) ==
LOC: RADMAMWWP 15:00
PROVIDERS: ATTEND Radiology Radiation Oncology
DX: C50.212 Malignant neoplasm of upper-inner quadrant of left female breast (principal); D32.9 Benign neoplasm of meninges, unspecified; Z17.0 Estrogen receptor positive status [ER+]; Z92.3 Personal history of irradiation
CPT/HCPCS: 77066; G0279; 77062

== ENCOUNTER → 2020-02-29 | Outpatient (CLI) | payer MEDICARE, OTHER ==
[2020-02-29 11:43] LABS: African American GFR (CKD) >90 (>60 ml/min/1.73 sqM); Blood Urea Nitrogen 11 mg/dL (7-17); Non-African American GFR(CKD) >90 (>60 ml/min/1.73 sqM)
--- NOTE | 2020-02-29 13:00 | CT ---
EXAMINATION TYPE: CT brain wo/w con DATE OF EXAM: 02/29/2020 COMPARISON: MRI of the brain dated 10/17/[address] brain dated 10/07/2019 HISTORY: Headache and neck pain. CT DLP: 2339 mGycm Automated Exposure Control for Dose Reduction was Utilized. TECHNIQUE: CT scan of the head is performed with IV contrast.,CT scan of the head is performed withou t and with without and with IV Contrast, patient injected with 100 mL of Isovue M300. FINDINGS: Noncontrast images show no acute intracranial hemorrhage or midline shift. The ventricles and sulci are symmetrically prominent compatible with age-related volume loss. Postcontrast images s how no suspicious enhancing intraparenchymal mass. Extra-axial mass is partially calcified and better seen on the prior MRI. However in comparison to prior CT of 10/07/2019 similar measurement of approx imately 1.5 cm of the calcified portion is marked on series 4 image 33. Partially empty sella turcica is incidentally seen. Low-lying cerebellar tonsils are again noted. The globes are intact and the visualized sinuses are clear. Right ocular lens appears surgically absent. Right parotid gland mass measures 1.3 cm and appear to be cystic on the prior MRI. IMPRESSION: 1. MRI is better suited to evaluate for leptomeningeal enhancement seen on the prior of 10/17/2019. Aga in lumbar puncture could be considered in if not previously performed to evaluate for metastasis. Of note there are low-lying cerebellar tonsils. 2. Similar CT appearance of the right parietal extradural partially calcified probable meningioma in comparison to 10/07/2019.
== END | disposition home or self-care (01) ==
LOC: RADCTMAIN 10:57
PROVIDERS: ATTEND Family Medicine
DX: G44.311 Acute post-traumatic headache, intractable (principal)
CPT/HCPCS: 82565; 84520; 70470; 36415; Q9967

== ENCOUNTER → 2020-03-29 | Outpatient (CLI) | payer MEDICARE, OTHER ==
[2020-03-29 10:49] VITALS: BP 135/81; PULSE 74; RESP 20; TEMP 98.7
--- NOTE | 2020-03-29 11:05 | P.PN ---
Subjective Progress Note Date: 03/29/20 Principal diagnosis: Stage IA left breast cancer/bilateral axillary hidradenitis worse on the right Stage IA [id number] Estela is a 69-year-old white female status post left breast lumpectomy and sentinel node biopsy. This was done in April 2019. The pathology revealed a grade 1A invasive ductal carcinoma which was 4 mm in size and the margins were negative. She did have some DCIS and distance from the closest margin was 1 mm from the blue inked margin. He completed 6 weeks of radiation therapy. She is taking a anti-hormone medication, exemestane. She is having some hot flashes related to this. She did not have any chemotherapy. She had a bilateral mammogram on . This was felt to be benign BIRADS 2. Follow-up diagnostic mammogram of both breast in 1 year is recommended. Patient was seen in November she did not have any complaints of lumps masses or nodules in her breast. However since that time she stated she felt some fullness in her left breast. She subsequently had a repeat left breast mammogram performed which showed postoperative findings with skin thickening metallic clips without a dominant mass or suspicious calcification. This was a BIRADS 3 probable benign finding. An ultrasound was performed which did not show any discrete mass on 02-29-20. She then proceeded to have an MRI performed at [facility] which did not show anything suspicious for malignancy. This was done on 03/23/2020. This was reviewed with Dr. Nicholson from radiology and no lesion was identified of concern. She is complaining at this time of a lump in her left breast which she states is new over the past 2 months, she states it is decreased at night but during the day is more prominent. The location of the nodularity is in the lower inner left breast. It is not painful. This is in a remote area from where the surgery was performed. The patient did have radiation therapy to the right axilla for hidradenitis. She has had some improvement but continues to have drainage of superior aspect of the hidradenitis. We have talked about surgical resection and she wishes this to be performed on an elective basis. Family history: Maternal grandmother: Skin cancer Patient: Cervical cancer Hormonal history: Menarche: 12 with one miscarriage did not breast-feed, first child born at 21 Menopause: 41 control pills: 4 years Hormones: Negative Surgical history: Cholecystectomy Left knee replacement Trigger finger release Left carpal tunnel surgery Left lumpectomy and sentinel node biopsy Medical history: Hidradenitis Arthritis Herniated disc in neck tremor Diabetes Hypothyroid Social history: smoke: 1/2 PPD Alcohol: Negative Drugs: Negative Review of systems: HEENT: Negative Cardiovascular: Hypertension Respiratory: Smoke or emphysema GI: Irritable bowel syndrome history of hepatitis : Negative Menstruation: Postmenopausal Musculoskeletal: Arthritis Integument: Hidradenitis under both arms worse on the right and bilateral groin Neurologic: Tremor Psychiatric: Anxiety Endocrine: Weight loss ALLERGIES:seasonal allergies Objective - Exam BMI 30.1 - Constitutional General appearance: Present: average body habitus - EENT Eyes: Present: EOMI ENT: Present: hearing grossly normal - Neck Neck: Present: normal ROM - Respiratory Respiratory: bilateral: CTA - Cardiovascular Rhythm: regular Heart sounds: normal: S1, S2 - Integumentary Integumentary Comment(s): Bilateral hidradenitis/was on the right than on the left/some purulent discharge from the superior aspect of the hidradenitis There is some tethering of the skin causing some restriction of movement related to the scarring right axilla - Musculoskeletal Musculoskeletal: Present: gait normal - Psychiatric Psychiatric: Present: A&O x's 3, appropriate affect, intact judgment & insight - Additional findings Additional findings: Breast examination: BRA 36 B/C Inspection: Ptosis grade 2/3, bilateral hidradenitis worse in the right axilla then the left Palpation: Right breast: Multiple position or exam no dominant masses or nodules of concern Right axilla: Hidradenitis with some scarring and tethering of the skin there is some drainage at the superior aspect of the hidradenitis, no adenopathy of concern Left breast: Multi-positional exam no dominant masses or nodules of concern, particularly attention his beta the lower inner quadrant area where the patient was concerned that she felt some nodularity prominent inframammary ridges identify but no discrete mass nothing was seen discreetly radiographically either. Left axilla: Hidradenitis no drainage no adenopathy of concern Assessment and Plan Assessment: Impression: 1. Status post left breast lumpectomy for stage IA breast cancer/no evidence of recurrence 2. Patient received radiation therapy 3. Bilateral hidradenitis patient received radiation to right axilla some improvement but not resolution of the area of drainage and concern 4. Patient is presently on an antiestrogen medication Plan: 1. We have discussed surgical resection of the hidradenitis in the right axilla and the patient wishes to have this done this will be done electively she is planning to have cataract surgery in the near future and will follow after this 2. Follow-up in 6 months for breast surveillance CC: DR. Ortiz encounter 30 minutes > 50% of time spent in counselling and planning
== END | disposition home or self-care (01) ==
LOC: WWCWWP 10:29
PROVIDERS: ATTEND Surgery
DX: Z53.9 Procedure and treatment not carried out, unspecified reason (principal)

== ENCOUNTER 2020-06-27 07:55 | Day surgery (SDC) | payer MEDICARE, OTHER ==
[2020-06-22 14:15] VITALS: BMI 28.5
[~2020-06-27 07:55] MED LIST changes: -HEPARIN SODIUM,PORCINE 5,000 UNIT/ML 1 ML VIAL SQ ONE; -LIDOCAINE 1% 20 ML VIAL (10MG/ML) FOR IV START INTRADERMA PRN; -MORPHINE SULFATE 2 MG/ML SYRINGE IV PRN; -ONDANSETRON 4 MG/2 ML VIAL IVP ONE; -Pre Op ABX Message 1 EACH MISC MISCELLANE ONE; -SCOPOLAMINE 1.5MG/72HR PATCH TRANSDERM ONE
[2020-06-27] MEDS ORDERED: LIDOCAINE 1% (10MG/ML) FOR IV START INTRADERMA ONE (08:35)
[2020-06-27 08:42] LABS: Glucose,Whole Blood 110 mg/dL (75-99)
[2020-06-27 08:50] VITALS: RESP 16; TEMP 97.2
[2020-06-27] MEDS ORDERED: PROPOFOL 10 MG/ML 20 ML VIAL IV ONE (09:03)
--- NOTE | 2020-06-27 09:26 | P.PCN ---
Date of Procedure: 06/27/20 Procedure(s) Performed: BRIEF HISTORY: Patient is a 70-year-old pleasant white female scheduled for an elective colonoscopy as a part of screening for colorectal neoplasia. PROCEDURE PERFORMED: Colonoscopy. PREOPERATIVE DIAGNOSIS: Screening for colon cancer. IV sedation per Anesthesia. PROCEDURE: After informed consent was obtained, the patient, was brought into the endoscopy unit. IV sedation was administered by Anesthesia under continuous monitoring. Digital rectal examination was normal. Initially the Olympus CF-160 flexible video colonoscope was then inserted in the rectum, gradually advanced into the cecum without any difficulty. Careful examination was performed as the scope was gradually being withdrawn. Ileocecal valve and the appendiceal orifice were visualized and appeared normal. Prep was fair.. Mucosa of the cecum, ascending colon, transverse colon, descend ing colon, sigmoid colon, and rectum appeared normal. Moderate sigmoid diverticulosis. Retroflexion was performed in the rectum and no lesions were seen. The patient tolerated the procedure well. IMPRESSION: Normal-appearing colon from rectum to cecum with no evidence of colorectal neoplasia Moderate sigmoid diverticulosis. RECOMMENDATIONS: Findings of this examination were discussed with the patient as well as her family. She was advised to have a repeat screening colonoscopy in 10 years.
[2020-06-27 09:50] VITALS: BP 118/63; PULSE 57
== END 2020-06-27 10:10 | disposition home or self-care (01) ==
LOC: ORWHC2ENDO 07:55
PROVIDERS: ATTEND Internal Medicine Gastroenterology
DX: Z12.11 Encounter for screening for malignant neoplasm of colon (principal); K57.30 Diverticulosis of large intestine without perforation or abscess without bleeding; I10 Essential (primary) hypertension; E78.5 Hyperlipidemia, unspecified; F17.200 Nicotine dependence, unspecified, uncomplicated; E11.9 Type 2 diabetes mellitus without complications; E07.9 Disorder of thyroid, unspecified; K21.9 Gastro-esophageal reflux disease without esophagitis; D64.9 Anemia, unspecified; C50.919 Malignant neoplasm of unspecified site of unspecified female breast; Z79.899 Other long term (current) drug therapy; Z79.82 Long term (current) use of aspirin; Z79.4 Long term (current) use of insulin; Z88.5 Allergy status to narcotic agent; Z91.09 Other allergy status, other than to drugs and biological substances; Z79.890 Hormone replacement therapy
CPT/HCPCS: J2704; G0121

== ENCOUNTER → 2020-11-26 | Outpatient (CLI) | payer MEDICARE, OTHER ==
--- NOTE | 2020-11-27 14:24 | MM ---
Reason for exam: additional evaluation requested from prior study. Last mammogram was performed 1 year ago. History: Patient is postmenopausal and has history of breast cancer at age 68. Malignant MG pre op needle loc LT of the left breast, April 26, 2019. Lumpectomy of the left breast, April 26, 2019. Malignant MG stereo VAD BX LT of the left breast, March 04, 2019. Taking antineoplastic for 1 year. Physical Findings: Nurse did not find any significant physical abnormalities on exam. MG 3D Diag Mammo W/Cad MOLLY Bilateral CC and MLO view(s) were taken. Prior study comparison: November 21, 2019, bilateral MG 3d diag mammo w/cad MOLLY. February 25, 2019, left breast US breast LT. January 18, 2019, mammogram. January 08, 2016, mammogram. Stable few round and secretory calcifications. Bilateral skin thickening and changes at the axilla and intramammary folds relating to hydradermitis suppurtiva. Post surgical and post therapy changes left breast. Trabecular thickening on the right axilla suggests some acute inflammation. These results were verbally communicated with the patient and result sheet given to the patient on 11/26/20. ASSESSMENT: Benign, BI-RAD 2 RECOMMENDATION: Follow-up diagnostic mammogram of both breasts in 1 year. Manage on a clinical basis with regard to any acute inflammation relating to patient's hydradermitis suppurtiva.
== END | disposition home or self-care (01) ==
LOC: RADMAMWWP 09:42
PROVIDERS: ATTEND Surgery
DX: Z08 Encounter for follow-up examination after completed treatment for malignant neoplasm (principal); Z85.3 Personal history of malignant neoplasm of breast
CPT/HCPCS: 77066; G0279; 77062

== ENCOUNTER → 2020-11-29 | Outpatient (CLI) | payer MEDICARE, OTHER ==
[2020-11-29 10:29] VITALS: BP 156/82; PULSE 67; RESP 20; TEMP 98.2
--- NOTE | 2020-11-29 10:59 | P.PN ---
Subjective Progress Note Date: 11/29/20 Principal diagnosis: stage IA left breast cancer Stage IA left breast cancer/bilateral axillary hidradenitis worse on the right Stage IA [id number]-G1 Estela is a 70-year-old white female status post left breast lumpectomy and sentinel node biopsy. This was done in April 2019. The pathology revealed a grade 1A invasive ductal carcinoma which was 4 mm in size and the margins were negative. She did have some DCIS and distance from the closest margin was 1 mm from the blue inked margin. She completed 6 weeks of radiation therapy. She is taking an anti-hormone medication, exemestane. She is having some hot flashes related to this, but this has improved. She did not have any chemotherapy. However, since that time she stated she felt some fullness in her left breast. She subsequently had a repeat left breast mammogram performed which showed postoperative findings with skin thickening metallic clips without a dominant mass or suspicious calcification. This was a BIRADS 3 probable benign finding. An ultrasound was performed which did not show any discrete mass on 02-29-20. She then proceeded to have an MRI performed at [facility] which did not show anything suspicious for malignancy. This was done on 03/23/2020. This was reviewed with Dr. Nicholson from radiology and no lesion was identified of concern. She was complaining at that time of a lump in her left breast which she states was new over the past 2 months, she stated it is decreased at night but during the day is more prominent. The location of the nodularity was in the lower inner left breast. It is not painful. This is in a remote area from where the surgery was performed. This area has since resolved. After the patient received radiation therapy to the left breast she had some improvement in hidradenitis in the left axilla. She therefore opted to have s ome radiation therapy to the right axilla for hidradenitis, this has also improved. The patient did have radiation therapy to the right axilla this was done on two occasions total of 10 treatments for hidradenitis. She has had improvement of the hidradenitis. We have talked about surgical resection and she wishes this to be performed on an elective basis. She had a bilateral mammogram on 11-27-20 which showed bilateral skin thickening in the axilla felt to be related to hidradenitis. At this time she is not complaining of any new lumps masses or nodules in her breast. She is not complaining of any skin changes. She complained of the nipple discharge. She's not had any recent trauma or infection in the breast. Family history: Maternal grandmother: Skin cancer Patient: Cervical cancer, breast cancer Hormonal history: Menarche: 12 with one miscarriage did not breast-feed, first child born at 21 Menopause: 41 control pills: 4 years Hormones: Negative Surgical history: Cholecystectomy Left knee replacement Trigger finger release Left carpal tunnel surgery Left lumpectomy and sentinel node biopsy Medical history: Hidradenitis Arthritis Herniated disc in neck tremor Diabetes Hypothyroid dementia starting Social history: smoke: 1/2 PPD Alcohol: Negative Drugs: Negative Review of systems: HEENT: Negative Cardiovascular: Hypertension Respiratory: Smoke or emphysema GI: Irritable bowel syndrome history of hepatitis : Negative Menstruation: Postmenopausal Musculoskeletal: Arthritis Integument: Hidradenitis under both arms worse on the right and bilateral groin Neurologic: Tremor, beginning of dementia Psychiatric: Anxiety Endocrine: Weight loss ALLERGIES:seasonal allergies Objective - Vital Signs Vital signs: Vital Signs Temp 98.2 F 11/29/20 10:27 Pulse 67 11/29/20 10:27 Resp 20 11/29/20 10:27 BP 156/82 11/29/20 10:27 Pulse Ox 100 11/29/20 10:27 Intake & Output 11/28/20 11/29/20 11/29/20 18:59 06:59 18:59 Weight 66.678 kg - Constitutional General appearance: Present: average body habitus, cooperative - EENT Eyes: Present: EOMI ENT: Present: hearing grossly normal - Neck Neck: Present: normal ROM - Respiratory Respiratory: bilateral: CTA - Cardiovascular Rhythm: regular Heart sounds: normal: S1, S2 - Gastrointestinal General gastrointestinal: Present: normal bowel sounds, soft - Integumentary Integumentary Comment(s): Bilateral healing hidradenitis in the axillas Integumentary: Present: normal turgor - Musculoskeletal Musculoskeletal: Present: gait normal - Psychiatric Psychiatric: Present: A&O x's 3, appropriate affect, intact judgment & insight - Additional findings Additional findings: Breast Exam: Bra: 34C inspection: Bilateral grade 3 ptosis, hidradenitis under both axillas Palpation: Right breast: Multiple positional exam fibrocystic changes, no dominant masses or nodules of concern Right axilla: Hidradenitis, no adenopathy of concern Left breast: Multiple positional exam fibrocystic changes, no dominant masses or nodules of concern Left axilla: Hidradenitis improved after radiation therapy Assessment and Plan Assessment: Impression: Hidradenitis Arthritis Herniated disc in neck tremor Diabetes Hypothyroid dementia starting stage IA left breast cancer no recurrence Bilateral axillary hidradenitis doing well at this time Patient on exmestane bilateral mammogram on 11-26-20 benign BIRAD 2 Plan: 1. follow up in 6 months 2. Continue to follow with medical and radiation oncology 3. If patient decides she would like surgery for the hidradenitis she will contact us CC: Dr. Ortiz Encounter 20 minutes, time spent in reviewing medical records, physical examination, and counseling.
== END | disposition home or self-care (01) ==
LOC: WWCWWP 10:19
PROVIDERS: ATTEND Surgery
DX: L73.2 Hidradenitis suppurativa (principal); M50.20 Other cervical disc displacement, unspecified cervical region; M19.90 Unspecified osteoarthritis, unspecified site; F03.90 Unspecified dementia, unspecified severity, without behavioral disturbance, psychotic disturbance, mood disturbance, and anxiety; E03.9 Hypothyroidism, unspecified; E11.9 Type 2 diabetes mellitus without complications; F17.210 Nicotine dependence, cigarettes, uncomplicated; Z98.890 Other specified postprocedural states; Z79.4 Long term (current) use of insulin; Z85.3 Personal history of malignant neoplasm of breast; R25.1 Tremor, unspecified

== ENCOUNTER 2021-05-23 06:29 | Day surgery (SDC) | payer MEDICARE, OTHER ==
[2021-05-21 15:28] VITALS: BMI 27.4
[~2021-05-23 06:29] MED LIST changes: -ONDANSETRON 4 MG/2 ML VIAL IVP PRN
[2021-05-23 07:10] VITALS: TEMP 97.8
[2021-05-23] MEDS ORDERED: LACTATED RINGERS 1,000 ML IV ONE (07:10)
[2021-05-23 07:17] LABS: Glucose,Whole Blood 98 mg/dL (75-99)
[2021-05-23] MEDS ORDERED: fentaNYL (PF) 50 MCG/ML 2 ML AMP ONE (07:39)
[2021-05-23] MEDS ORDERED: PROPOFOL 10 MG/ML 20 ML VIAL IV ONE (07:39)
[2021-05-23] MEDS ORDERED: LIDOCAINE 1% INJ 10MG/ML (20 ML MDV) ONE (07:39)
--- NOTE | 2021-05-23 07:58 | P.PCN ---
Date of Procedure: 05/23/21 Description of Procedure: BRIEF HISTORY: Patient is a 71-year-old female presenting for outpatient esophagogastroduodenoscopy for evaluation of esophageal dysphagia. Patient has a history of reflux and atypical chest pain in the past with her last EGD performed for chest pain in 2016. She presents for evaluation of intermittent solid food dysphagia. PROCEDURE PERFORMED: Esophagogastroduodenoscopy with biopsy. PREOPERATIVE DIAGNOSIS: Esophageal dysphagia, GERD. ESTIMATED BLOOD LOSS: Minimal. IV sedation per anesthesia. PROCEDURE: After informed consent was obtained, the patient was brought into the endoscopy unit. IV sedation was administered by Anesthesia under continuous monitoring. Initially the Olympus GIF-190 video endoscope was inserted into the mouth. Esophagus intubated without any difficulty. It was gradually advanced into the stomach and duodenum and carefully examined. The bulb and the second part of the duodenum appeared normal, with biopsies taken. The scope at this time was withdrawn to the stomach, adequately insufflated with air, and upon careful examination, mucosa of the antrum, body, cardia and the fundus appeared normal, except for some mild punctate erythema in the antrum and body suggestive of mild gastritis biopsies taken. The scope was then withdrawn into the esophagus. The GE junction was located at 36 cm from the incisors, with a 1 cm hiatal hernia. The esophagus appeared normal, except for some mild tortuosity with biopsies of the lower esophagus and midesophagus in. There were no erosions or ulcerations seen and the patient tolerated the procedure well. IMPRESSION: 1. Mild gastritis. 2. Small hiatal hernia. 3. Mildly tortuous esophagus. 4. Biopsies of the duodenum, antrum and body, lower esophagus and midesophagus. RECOMMENDATIONS: The findings of this examination were discussed with the patient and her family. Okay to resume diet. Okay to resume medications. Await pathology from biopsies. Continue omeprazole therapy for now. Patient's episodes of intermittent dysphagia may be related to tortuosity of the esophagus and recommendations as for smaller bites, chewing food well, sips of water between bites of food and sitting upright while eating. If symptoms persist can consider referral for possible manometry.
[2021-05-23 08:23] VITALS: BP 124/76; PULSE 71; RESP 20
== END 2021-05-23 08:25 | disposition home or self-care (01) ==
LOC: ORWHC2ENDO 06:29
PROVIDERS: ATTEND Internal Medicine
DX: K29.70 Gastritis, unspecified, without bleeding (principal); K44.9 Diaphragmatic hernia without obstruction or gangrene; K21.9 Gastro-esophageal reflux disease without esophagitis; R13.14 Dysphagia, pharyngoesophageal phase; I10 Essential (primary) hypertension; E78.5 Hyperlipidemia, unspecified; J44.9 Chronic obstructive pulmonary disease, unspecified; F17.200 Nicotine dependence, unspecified, uncomplicated; M51.36 Other intervertebral disc degeneration, lumbar region; R41.3 Other amnesia
CPT/HCPCS: 43239; 88305; 88312; 88342; J2001; J3010; J2704

== ENCOUNTER → 2021-06-20 | Outpatient (CLI) | payer MEDICARE, OTHER ==
[2021-06-20 12:50] VITALS: BP 154/85; PULSE 73; RESP 18; TEMP 98.3
--- NOTE | 2021-06-20 13:01 | P.PN ---
Subjective Progress Note Date: 06/20/21 Principal diagnosis: stage IA left breast cancer, bilateral hydradenitis worse on the right Stage IA left breast cancer/bilateral axillary hidradenitis worse on the right Stage IA [id number]+Her2-G1 Estela is a 71-year-old white female status post left breast lumpectomy and sen tinel node biopsy. This was done in April 2019. The pathology revealed a grade 1A invasive ductal carcinoma which was 4 mm in size and the margins were negative. She did have some DCIS and distance from the closest margin was 1 mm from the blue inked margin. She completed 6 weeks of radiation therapy. She is taking an anti-hormone medication, exemestane. She is having some hot flashes related to this, but this has improved. She did not have any chemotherapy. The patient had a bilateral mammogram on which was benign BIRADS 2. She was seen in consultation with Dr. Woods on [id number]. The patient has had bilateral radiation therapy to her axillas for treatment of the hidradenitis. This finished on 12/27/2019 She had partial response and [place] [id number]. At this time she is not complaining of any new lumps masses or nodules in her breast. She is not complaining of any skin changes. She complained of the nipple discharge. She's not had any recent trauma or infection in the breast. The hydrated adenitis has improved in both axillas. She does not have any recent flareups. Family history: Maternal grandmother: Skin cancer Patient: Cervical cancer, breast cancer Hormonal history: Menarche: 12 with one miscarriage did not breast-feed, first child born at 21 Menopause: 41 control pills: 4 years Hormones: Negative Surgical history: Cholecystectomy Left knee replacement Trigger finger release Left carpal tunnel surgery Left lumpectomy and sentinel node biopsy Medical history: Hidradenitis Arthritis Herniated disc in neck tremor Diabetes Hypothyroid dementia starting anxiety Social history: smoke: 1/2 PPD Alcohol: Negative Drugs: Negative Review of systems: HEENT: Negative Cardiovascular: Hypertension Respiratory: Smoke or emphysema GI: Irritable bowel syndrome history of hepatitis : Negative Menstruation: Postmenopausal Musculoskeletal: Arthritis Integument: Hidradenitis under both arms worse on the right and bilateral groin Neurologic: Tremor, beginning of dementia Psychiatric: Anxiety Endocrine: Weight loss ALLERGIES:seasonal allergies Objective - Exam BMI 27.3 - Constitutional General appearance: Present: cooperative - EENT Eyes: Present: EOMI ENT: Present: hearing grossly normal - Neck Neck: Present: normal ROM - Respiratory Respiratory: bilateral: CTA - Cardiovascular Rhythm: regular Heart sounds: normal: S1, S2 - Gastrointestinal General gastrointestinal: Present: soft - Integumentary Integumentary: Present: normal turgor - Psychiatric Psychiatric Comment(s): dementia - Additional findings Additional findings: Breast Exam: BRA: 34C inspection: bilateral hydroadenitis, bilateral grade 3 ptosis palpation: Right breast: Multi-positional exam no dominant masses or nodules of concern Right axilla: Active hidradenitis improved from prior exams there is some purulent discharge Left breast: Multi-positional exam no dominant masses or nodules of concern Left axilla: Scarring from prior hidradenitis no evidence of active disease Assessment and Plan Assessment: Impression: 1. Patient status post left breast lumpectomy and sentinel node biopsy for stage I invasive ductal carcinoma, no evidence of recurrent cancer 2. Hidradenitis with some active disease in the right axilla improved over prior visits Plan: Patient is going to use warm compresses in the right axilla Patient is going to continue exmustane Patient will have repeat bilateral mammogram in 6 months with appointment encouraged to stop smoking CC: Dr. Ortiz
== END | disposition home or self-care (01) ==
LOC: WWCWWP 12:23
PROVIDERS: ATTEND Surgery
DX: Z53.9 Procedure and treatment not carried out, unspecified reason (principal)

== ENCOUNTER 2021-08-18 08:20 | Observation (INO) | payer MEDICARE, OTHER ==
[2021-08-18] MEDS ORDERED: ASPIRIN 81 MG PO STA (08:51)
[2021-08-18] MEDS ORDERED: NITROGLYCERIN OINT 1 INCH/GM PACKET TOPICAL STA (08:51)
--- NOTE | 2021-08-18 08:54 | ED ---
General Adult HPI - General Chief complaint: Chest Pain Stated complaint: Chest pain, anxiety Time Seen by Provider: 08/18/21 08:25 Source: patient, RN notes reviewed, old records reviewed Mode of arrival: wheelchair Limitations: physical limitation - History of Present Illness Initial comments: This is a 71-year-old female who presents to the emergency department complaining of chest pain for 2 hours. Patient states it radiates to her back. Patient states currently it is much improved. Patient has a history of smoking high blood pressure and high cholesterol. Patient also has a history of anxiety which has worsened over the last couple of months. Patient states prior to arrival she took one anxiety medications. Patient states currently she feels relaxed. Patient states she's had a cough recently but no fever or chills. Patient denies any abdominal pain patient denies any nausea vomiting diarrhea. Patient denies headache patient denies lightheadedness or dizziness. - Related Data Home Medications Medication Instructions Recorded Confirmed Aspirin 81 mg PO DAILY 07/06/15 08/18/21 Atorvastatin [Lipitor] 40 mg PO HS 07/06/15 08/18/21 Ferrous Sulfate [Feosol] 65 mg PO DAILY 07/06/15 08/18/21 Magnesium Oxide [Magox 400] 400 mg PO DAILY 07/06/15 08/18/21 Omeprazole [PriLOSEC] 20 mg PO DAILY 07/06/15 08/18/21 metFORMIN HCL [Glucophage] 1,000 mg PO BID 07/06/15 08/18/21 ramipriL [Altace] 5 mg PO DAILY 07/06/15 08/18/21 Insulin Aspart [NovoLOG Flexpen] See Protocol SQ AC-TID PRN 06/26/16 08/18/21 Insulin Glargine [Lantus] 6 unit SQ 06/26/16 08/18/21 Cyanocobalamin (Vitamin B-12) 1,000 mcg PO DAILY 07/28/17 08/18/21 [Vitamin B-12] Propranolol HCl 60 mg PO DAILY 07/28/17 08/18/21 Rivastigmine Tartrate [Exelon] 3 mg PO BID 03/29/20 08/18/21 Exemestane [Aromasin] 25 mg PO DAILY 06/22/20 08/18/21 Albuterol Sulfate [Proventil Hfa] 2 puff INHALATION RT-Q4H PRN 11/29/20 08/18/21 Cholecalciferol [Vitamin D3 (25 50 mcg PO DAILY 11/29/20 08/18/21 Mcg = 1000 Iu)] Potassium Chloride [Potassium 10 meq PO DAILY 11/29/20 08/18/21 Chloride ER] Aclidinium [place] [Tudorza 1 puff INHALATION RT-BID 05/21/21 08/18/21 Pressair] Fluticasone Propion/Salmeterol 1 puff INHALATION RT-BID 05/21/21 08/18/21 [Wixela 250-50 Inhub] ALPRAZolam [Xanax] 0.25 mg PO HS PRN 06/20/21 08/18/21 Levothyroxine Sodium [Synthroid] 25 mcg PO DAILY 08/18/21 08/18/21 Allergies Allergy/AdvReac Type Severity Reaction Status Date / Time adhesive tape Allergy BLISTERS Verified 08/18/21 09:45 SKIN, OK TO USE PAPER TAPE codeine AdvReac Nausea Verified 08/18/21 09:45 Review of Systems ROS Statement: Those systems with pertinent positive or pertinent negative responses have been documented in the HPI. ROS Other: All systems not noted in ROS Statement are negative. Past Medical History Past Medical History: Cancer, COPD, Dementia, Diabetes Mellitus, GERD/Reflux, Hyperlipidemia, Hypertension, Liver Disease, Memory Impairment, Musculoskeletal Disorder, Osteoarthritis (OA), Skin Disorder, Thyroid Disorder Additional Past Medical History / Comment(s): Hx Childhood Hepatitis A, Pericarditis 2004, DDD, Hydradenitis in skin folds, Hiatal Hernia. Hx Cervical Cancer. Hx left breast cancer 2019, had radiation tx. First stage of vascular Dementia. swallowing difficulties History of Any Multi-Drug Resistant Organisms: None Reported Past Surgical History: Breast Surgery, Cholecystectomy, Joint Replacement, Orthopedic Surgery Additional Past Surgical History / Comment(s): EGD, left knee replacement, bilateral trigger fingers, right hand carpal tunnel, Cervical Procedure for Cancer, left Breast Biopsy. Past Anesthesia/Blood Transfusion Reactions: Postoperative Nausea & Vomiting (PONV) Past Psychological History: Anxiety, Panic Disorder Smoking Status: Current every day smoker Past Alcohol Use History: None Reported Past Drug Use History: None Reported - Past Family History Sister(s) Family Medical History: Deep Vein Thrombosis (DVT) General Exam - General Exam Comments Initial Comments: GENERAL: Patient is well-developed and well-nourished. Patient is nontoxic and well- hydrated and is in mild distress. ENT: Neck is soft and supple. No significant lymphadenopathy is noted. Oropharynx is clear. Moist mucous membranes. Neck has full range of motion without eliciting any pain. EYES: The sclera were anicteric and conjunctiva were pink and moist. Extraocular movements were intact and pupils were equal round and reactive to light. Eyelids were unremarkable. PULMONARY: Unlabored respirations. Good breath sounds bilaterally. No audible rales rhonchi or wheezing was noted. CARDIOVASCULAR: There is a regular rate and rhythm without any murmurs gallops or rubs. ABDOMEN: Soft and nontender with normal bowel sounds. SKIN: Skin is clear with no lesions or rashes and otherwise unremarkable. NEUROLOGIC: Patient is alert and oriented x3. Cranial nerves II through XII are grossly intact. Motor and sensory are also intact. Normal speech, volume and content. Symmetrical smile. MUSCULOSKELETAL: Normal extremities with adequate strength and full range of motion. LYMPHATICS: No significant lymphadenopathy is noted PSYCHIATRIC: Mildly anxious Limitations: physical limitation Course Vital Signs 08/18/21 08/18/21 08:23 10:07 Temperature 97.4 F L Pulse Rate 74 72 Respiratory 18 18 Rate Blood Pressure 150/83 128/82 O2 Sat by Pulse 100 96 Oximetry Medical Decision Making - Medical Decision Making EKG shows normal sinus rhythm at 65 bpm AK interval 242 QRS is under 40 QT interval is 444 QTC is 461. Patient's EKG shows right bundle branch block with Q waves in all precordial leads. Chest x-ray shows no acute abnormality. Patient's chest pain-free currently. I spoke with Dr. Jefferson he agreed to admit the patient to the patient remaining orders. - Lab Data Result diagrams: 08/18/21 09:16 08/18/21 09:16 Lab Results 08/18/21 08/18/21 08/18/21 Range/Units 09:16 09:16 09:16 WBC 5.9 (3.8-10.6) k/uL RBC 4.23 (3.80-5.40) m/uL Hgb 13.1 (11.4-16.0) gm/dL Hct 37.8 (34.0-46.0) % MCV 89.5 (80.0-100.0) fL MCH 30.9 (25.0-35.0) pg MCHC 34.6 (31.0-37.0) g/dL RDW 13.8 (11.5-15.5) % Plt Count 206 (150-450) k/uL MPV 7.8 Neutrophils % 79 % Lymphocytes % 14 % Monocytes % 5 % Eosinophils % 2 % Basophils % 1 % Neutrophils # 4.6 (1.3-7.7) k/uL Lymphocytes # 0.8 L (1.0-4.8) k/uL Monocytes # 0.3 (0-1.0) k/uL Eosinophils # 0.1 (0-0.7) k/uL Basophils # 0.0 (0-0.2) k/uL PT 10.3 (9.0-12.0) sec INR 1.0 (<1.2) APTT 23.9 (22.0-30.0) sec D-Dimer 0.33 (<0.60) mg/L FEU Sodium (137-145) mmol/L Potassium (3.5-5.1) mmol/L Chloride (98-107) mmol/L Carbon Dioxide (22-30) mmol/L Anion Gap mmol/L BUN (7-17) mg/dL Creatinine (0.52-1.04) mg/dL Est GFR (CKD-EPI)AfAm (>60 ml/min/1.73 sqM) Est GFR (CKD-EPI)NonAf (>60 ml/min/1.73 sqM) Glucose (74-99) mg/dL Calcium (8.4-10.2) mg/dL Magnesium (1.6-2.3) mg/dL Total Bilirubin (0.2-1.3) mg/dL AST (14-36) U/L ALT (4-34) U/L Alkaline Phosphatase (38-126) U/L Troponin I (0.000-0.034) ng/mL NT-Pro-B Natriuret Pep pg/mL Total Protein (6.3-8.2) g/dL Albumin (3.5-5.0) g/dL Coronavirus (PCR) Not Detected (Not Detectd) 08/18/21 08/18/21 08/18/21 Range/Units 09:16 09:16 09:16 WBC (3.8-10.6) k/uL RBC (3.80-5.40) m/uL Hgb (11.4-16.0) gm/dL Hct (34.0-46.0) % MCV (80.0-100.0) fL MCH (25.0-35.0) pg MCHC (31.0-37.0) g/dL RDW (11.5-15.5) % Plt Count (150-450) k/uL MPV Neutrophils % % Lymphocytes % % Monocytes % % Eosinophils % % Basophils % % Neutrophils # (1.3-7.7) k/uL Lymphocytes # (1.0-4.8) k/uL Monocytes # (0-1.0) k/uL Eosinophils # (0-0.7) k/uL Basophils # (0-0.2) k/uL PT (9.0-12.0) sec INR (<1.2) APTT (22.0-30.0) sec D-Dimer (<0.60) mg/L FEU Sodium 135 L (137-145) mmol/L Potassium 4.1 (3.5-5.1) mmol/L Chloride 97 L (98-107) mmol/L Carbon Dioxide 27 (22-30) mmol/L Anion Gap 11 mmol/L BUN 12 (7-17) mg/dL Creatinine 0.48 L (0.52-1.04) mg/dL Est GFR (CKD-EPI)AfAm >90 (>60 ml/min/1.73 sqM) Est GFR (CKD-EPI)NonAf >90 (>60 ml/min/1.73 sqM) Glucose 144 H (74-99) mg/dL Calcium 10.3 H (8.4-10.2) mg/dL Magnesium 1.3 L (1.6-2.3) mg/dL Total Bilirubin 0.9 (0.2-1.3) mg/dL AST 26 (14-36) U/L ALT 16 (4-34) U/L Alkaline Phosphatase 108 (38-126) U/L Troponin I <0.012 (0.000-0.034) ng/mL NT-Pro-B Natriuret Pep 210 pg/mL Total Protein 7.3 (6.3-8.2) g/dL Albumin 4.3 (3.5-5.0) g/dL Coronavirus (PCR) (Not Detectd) Disposition Clinical Impression: Chest pain Disposition: ADMITTED IP TO THIS HOSP Referrals: Xiomara Ortiz MD [Primary Care Provider] - 1-2 days Time of Disposition: 11:23
--- NOTE | 2021-08-18 09:09 | XR ---
EXAMINATION TYPE: XR chest 2V DATE OF EXAM: 08/18/2021 COMPARISON: 10/07/2019 HISTORY: Chest pain TECHNIQUE: Frontal and lateral views of the chest are obtained. FINDINGS: There is no focal air space opacity, pleural effusion, or pneumothorax seen. The cardiac silhouette size is within normal limits. The osseous structures are intact. IMPRESSION: No acute cardiopulmonary process.
[2021-08-18 09:26] LABS: Basophils % (A) 1 %; Eosinophils # (A) 0.1 k/uL (0-0.7); Eosinophils % (A) 2 %; HCT 37.8 % (34.0-46.0); HGB 13.1 gm/dL (11.4-16.0); Lymphocytes # (A) 0.8 k/uL (1.0-4.8); Lymphocytes % (A) 14 %; MCH 30.9 pg (25.0-35.0); MCHC 34.6 g/dL (31.0-37.0); MCV 89.5 fL (80.0-100.0); Mean Platelet Volume 7.8; Monocytes # (A) 0.3 k/uL (0-1.0); Monocytes % (A) 5 %; Neutrophils # (A) 4.6 k/uL (1.3-7.7); Neutrophils % (A) 79 %; Platelet Count 206 k/uL (150-450); RBC 4.23 m/uL (3.80-5.40); RDW 13.8 % (11.5-15.5); WBC 5.9 k/uL (3.8-10.6)
[2021-08-18 09:37] LABS: ALT 16 U/L (4-34); AST 26 U/L (14-36); African American GFR (CKD) >90 (>60 ml/min/1.73 sqM); Albumin 4.3 g/dL (3.5-5.0); Alkaline Phosphatase 108 U/L (38-126); Anion Gap 11 mmol/L; Blood Urea Nitrogen 12 mg/dL (7-17); Calcium 10.3 mg/dL (8.4-10.2); Carbon Dioxide 27 mmol/L (22-30); Chloride 97 mmol/L (98-107); Glucose 144 mg/dL (74-99); Magnesium 1.3 mg/dL (1.6-2.3); Non-African American GFR(CKD) >90 (>60 ml/min/1.73 sqM); Potassium 4.1 mmol/L (3.5-5.1); Sodium 135 mmol/L (137-145); Total Bilirubin 0.9 mg/dL (0.2-1.3); Total Protein 7.3 g/dL (6.3-8.2)
[2021-08-18 09:42] LABS: Partial Thromboplastin Time 23.9 sec (22.0-30.0); Prothrombin Time 10.3 sec (9.0-12.0)
[2021-08-18] MEDS ORDERED: NITROGLYCERIN SL TABS 0.4 MG TAB SUBLINGUAL PRN (11:24)
[2021-08-18] MEDS: MAGNESIUM SULFATE-D5W PMX 1 GM in DEXTROSE/WATER 1 100ML.BAG IVPB SCH ×2 (11:44→13:13)
[2021-08-18] MEDS ORDERED: ALPRAZolam 0.25 MG TAB PO PRN (12:15)
[2021-08-18] MEDS ORDERED: ALBUTEROL NEBULIZED 2.5 MG/3 ML INHALATION PRN (12:15)
[2021-08-18] MEDS: NITROGLYCERIN OINT 1 INCH/GM PACKET TOPICAL SCH ×3 (12:36→23:27)
[2021-08-18 12:46] LABS: Glucose,Whole Blood 146 mg/dL (75-99)
--- NOTE | 2021-08-18 13:31 | CT ---
EXAMINATION TYPE: CT brain wo con DATE OF EXAM: 08/18/2021 COMPARISON: 02/29/2020 HISTORY: headache CT DLP: 1099.4 mGycm Automated exposure control for dose reduction was used. FINDINGS: There remains a calcified extradural lesion involving the right parietal calvarium possibly related t o meningioma. Ventricular system is midline and there is mild to moderate generalized degenerative ch bhavin of the greater frontal lobe component. No acute hemorrhage or mass effect. Orbits are symmetric. Craniocervical junction demonstrates findings suggestive of Chiari malformation . Calvarium intact. IMPRESSION: 1. STABLE EXTRADURAL MASS ALONG THE RIGHT PARIETAL CONVEXITY WHICH IS CALCIFIED MOST LIKELY IN THE BA SIS OF MENINGIOMA. 2. FINDINGS ARE SUGGESTIVE OF A CHIARI MALFORMATION RECOMMEND FOLLOW-UP MRI.
--- NOTE | 2021-08-18 13:31 | P.HPIM ---
History of Present Illness H&P Date: 08/18/21 Chief Complaint: Recurrent chest pain, shortness of breath, breast cancer, s evere headache w HISTORY OF PRESENT ILLNESS 71-year-old female one of Dr. Ortiz's patient with past medical history of breast cancer, COPD, dementia, type 2 diabetes on insulin, hypertension, chronic hypothyroidism who has multiple other medical problem with previous history of pericarditis back in 2003 who presented to the emergency department at [facility] with current history of chest pain in the midsternum along with a left side associated with mild shortness of breath lightheadedness. The patient with mild nausea feeling. Symptom were not correlated to exertion or position symptom has been become much worse patient is having significant shortness of breath with it lately. Patient has multiple risk factor for coronary disease from smoking, hypertension, diabetes, hyperlipidemia and family history [facility] showed significant change in that anterolateral leads with right bundle block with mild tachycardia. Troponin was negative at the time patient be admitted to the hospital continue CK with troponin 3 be seeing cardiology echocardiogram and stress test will be order. REVIEW OF SYSTEMS Constitutional: No fever, no chills, no night sweats. No weight change. No weakness, fatigue or lethargy. No daytime sleepiness. EENT: No headache. No blurred vision or double vision, no loss of vision. No loss of Hearing, no ringing in the ears, no dizziness. No nasal drainage or congestion. No epistaxis. No sore throat. Lungs: Mild shortness of breath and chest wall pain with slight chest pain with exertion. Cardiovascular: Positive angina chest pain, no lower extremity edema. No palpitations. Positive PND and orthopnea. No lightheadedness or dizziness. No syncopal episodes. Abdominal: No abdominal pain. No nausea, vomiting. No diarrhea. No constipation. No bloody or tarry stools.. No loss of appetite. Genitourinary: No dysuria, increased frequency, urgency. No urinary retention. Musculoskeletal: Slight back pain and generalized muscle pain all over. Integumentary: No wounds, no lesions. No rash or pruritus. No unusual bruising. No change in hair or nails. Neurologic: No aphasia. No facial droop. No change in mentation. Has been having significant headache bilaterally worse in the left side with more distribution of trigeminal nerve. Psychiatric: No depression. No anxiety. No mood swings. Endocrine: No abnormal blood sugars. No weight change. No excessive sweating or thirst. No cold intolerance. SOCIAL HISTORY She smokes half pack daily for 40 years, tobacco abuse, no drug use. FAMILY HISTORY She has 2 children with no major medical problem. Had 2 brothers without living and well. Her mother age 80 from pneumonia father in his 80s from CVA. PHYSICAL EXAMINATION Gen: This is a well-developed no acute respiratory distress. HEENT: Head is atraumatic, normocephalic. Pupils equal, round. Sclerae is anicteric. NECK: Supple. No JVD. No lymphadenopathy. No thyromegaly. LUNGS: Clear to auscultation. No wheezes or rhonchi. No intercostal retractions. HEART: Regular rate and rhythm. No murmur. ABDOMEN: Soft. Bowel sounds are present. No masses. No tenderness. EXTREMITIES: No pedal edema. No calf tenderness. NEUROLOGICAL: Patient is awake, alert and oriented x3. Cranial nerves 2 through 12 are grossly intact. ASSESSMENT AND PLAN 1. Atypical chest pain: With multiple risk factor, patient be hospitalized CK with troponin 3 be done echo and stress test will be ordered patient be seen cardiology. 2 significant headache with trigeminal neuralgia: Patient will be going for CT without contrast if any suspicion MRI of the brain will be done. 3 COPD: Resume Ventolin, continue updraft treatment along with O2. 4 breast-cancer: Has been in remission still on monotherapy still seen oncology on regular basis. 5 type 2 diabetes: Has been on Lantus and NovoLog resume both medication continue Accu-Chek with sliding scales coverage still on Glucophage 1000 g twice a day. 6 hypothyroidism: Continue levothyroxine at 25 g daily. 7 hyperlipidemia: Remain on atorvastatin 40 mg daily. 8 iron deficiency anemia: Continue iron supplement and multivitamins. 9 familial tremor: Patient is on Inderal 60 mg daily. 10 hypertension: Remain on ramipril 5 mg a day, propranolol 60 mg daily. 11 memory.: Mostly Alzheimer disease she still on Exelon. 12 GI prophylaxis: Patient will be on omeprazole. 13 DVT prophylaxis: Early mobilization and knee-high DEL hose. 11. COVID-19 testing, was negative. CODE STATUS: Full code. Patient will be admitted to the hospital for overnight stay. Past Medical History Past Medical History: Cancer, COPD, Dementia, Diabetes Mellitus, GERD/Reflux, Hyperlipidemia, Hypertension, Liver Disease, Memory Impairment, Musculoskeletal Disorder, Osteoarthritis (OA), Skin Disorder, Thyroid Disorder Additional Past Medical History / Comment(s): Hx Childhood Hepatitis A, Pericarditis 2004, DDD, Hydradenitis in skin folds, Hiatal Hernia. Hx Cervical Cancer. Hx left breast cancer 2018, had radiation tx. First stage of vascular Dementia. swallowing difficulties History of Any Multi-Drug Resistant Organisms: None Reported Past Surgical History: Breast Surgery, Cholecystectomy, Joint Replacement, Orthopedic Surgery Additional Past Surgical History / Comment(s): EGD, left knee replacement, bilateral trigger fingers, right hand carpal tunnel, Cervical Procedure for Cancer, left Breast Biopsy. Past Anesthesia/Blood Transfusion Reactions: Postoperative Nausea & Vomiting (PONV) Past Psychological History: Anxiety, Panic Disorder Smoking Status: Current every day smoker Past Alcohol Use History: None Reported Past Drug Use History: None Reported - Past Family History Sister(s) Family Medical History: Deep Vein Thrombosis (DVT) Medications and Allergies Home Medications Medication Instructions Recorded Confirmed Type Aspirin 81 mg PO DAILY 07/06/15 08/18/21 History Atorvastatin [Lipitor] 40 mg PO HS 07/06/15 08/18/21 History Ferrous Sulfate [Feosol] 65 mg PO DAILY 07/06/15 08/18/21 History Magnesium Oxide [Magox 400] 400 mg PO DAILY 07/06/15 08/18/21 History Omeprazole [PriLOSEC] 20 mg PO DAILY 07/06/15 08/18/21 History metFORMIN HCL [Glucophage] 1,000 mg PO BID 07/06/15 08/18/21 History ramipriL [Altace] 5 mg PO DAILY 07/06/15 08/18/21 History Insulin Aspart [NovoLOG Flexpen] See Protocol SQ AC-TID PRN 06/26/16 08/18/21 History Insulin Glargine [Lantus] 6 unit SQ HS 06/26/16 08/18/21 History Cyanocobalamin (Vitamin B-12) 1,000 mcg PO DAILY 07/28/17 08/18/21 History [Vitamin B-12] Propranolol HCl 60 mg PO DAILY 07/28/17 08/18/21 History Rivastigmine Tartrate [Exelon] 3 mg PO BID 03/29/20 08/18/21 History Exemestane [Aromasin] 25 mg PO DAILY 06/22/20 08/18/21 History Albuterol Sulfate [Proventil Hfa] 2 puff INHALATION RT-Q4H PRN 11/29/20 08/18/21 History Cholecalciferol [Vitamin D3 (25 50 mcg PO DAILY 11/29/20 08/18/21 History Mcg = 1000 Iu)] Potassium Chloride [Potassium 10 meq PO DAILY 11/29/20 08/18/21 History Chloride ER] Aclidinium [place] [Tudorza 1 puff INHALATION RT-BID 05/21/21 08/18/21 History Pressair] Fluticasone Propion/Salmeterol 1 puff INHALATION RT-BID 05/21/21 08/18/21 History [Wixela 250-50 Inhub] ALPRAZolam [Xanax] 0.25 mg PO HS PRN 06/20/21 08/18/21 History Levothyroxine Sodium [Synthroid] 25 mcg PO DAILY 08/18/21 08/18/21 History Allergies Allergy/AdvReac Type Severity Reaction Status Date / Time adhesive tape Allergy BLISTERS Verified 08/18/21 09:45 SKIN, OK TO USE PAPER TAPE codeine AdvReac Nausea Verified 08/18/21 09:45 Physical Exam Vitals: Vital Signs Temp Pulse Resp BP Pulse Ox 08/18/21 10:07 72 18 128/82 96 08/18/21 08:23 97.4 F L 74 18 150/83 100 Intake and Output 08/17/21 08/18/21 08/18/21 23:59 06:59 14:59 Other: Weight 63.503 kg Results CBC & Chem 7: 08/18/21 09:16 08/18/21 09:16 Labs: Abnormal Lab Results - Last 24 Hours (Table) 08/18/21 08/18/21 Range/Units 09:16 09:16 Lymphocytes # 0.8 L (1.0-4.8) k/uL Sodium 135 L (137-145) mmol/L Chloride 97 L (98-107) mmol/L Creatinine 0.48 L (0.52-1.04) mg/dL Glucose 144 H (74-99) mg/dL Calcium 10.3 H (8.4-10.2) mg/dL Magnesium 1.3 L (1.6-2.3) mg/dL
[2021-08-18] MEDS: metFORMIN 500 MG TAB PO SCH (17:20)
[2021-08-18 17:25] LABS: Glucose,Whole Blood 129 mg/dL (75-99)
[2021-08-18 20:03] LABS: Glucose,Whole Blood 157 mg/dL (75-99)
[2021-08-18] MEDS ORDERED: ATORVASTATIN 40 MG TAB PO SCH (21:00)
[2021-08-18] MEDS ORDERED: INSULIN DETEMIR (LEVEMIR) 100 UNIT/ML SYR SQ SCH (21:00)
[2021-08-18] MEDS ORDERED: DONEPEZIL 10 MG TAB PO SCH (21:00)
[2021-08-19] MEDS: IPRATROPIUM 0.5 MG/2.5 ML NEBU INHALATION SCH ×3 (03:15→18:37)
[2021-08-19] MEDS: SYMBICORT 80-4.5 MCG INHALER INHALATION SCH ×2 (03:16→12:53)
[2021-08-19] MEDS: NITROGLYCERIN OINT 1 INCH/GM PACKET TOPICAL SCH ×3 (05:12→17:30)
[2021-08-19] MEDS ORDERED: LEVOTHYROXINE 25 MCG TAB PO SCH (06:30)
[2021-08-19] MEDS ORDERED: REGADENOSON 0.4 MG/5 ML SYRINGE IV PRN (07:23)
[2021-08-19] MEDS ORDERED: AMINOPHYLLINE 500 MG/20 ML VIAL IV PRN (07:23)
[2021-08-19] MEDS ORDERED: CAFFEINE CITRATE 60 MG/3 ML VIAL IV PRN (07:23)
[2021-08-19 07:27] LABS: Glucose,Whole Blood 117 mg/dL (75-99)
[2021-08-19 08:28] VITALS: RESP 16
--- NOTE | 2021-08-19 08:40 | CONS ---
CONSULTATION Mrs. Minor is a 71-year-old female known history of chronic tobacco use, hypertension, hyperlipidemia, and diabetes and remote history of pericarditis, who presented with progressive anxiety. According to her, she has been under a lot of stress at home and because of that came into the emergency room and subsequently admitted at the same time. She has some chest discomfort on and off. According to her has been going on for a while and she did not feel that is much worse now than it has been before. She does not have any exertional pattern to her symptoms. The patient has no documented history of obstructive coronary artery disease. She has some dyspnea on exertion, occasional cough. No peripheral edema. No PND. No orthopnea. No palpitations. Since her admission, she has been in sinus mechanism and there was no evidence of enzymatic changes. Her coronary risk factors are remarkable for the smoking between half a pack to a pack a day, history of diabetes, history of hyperlipidemia and hypertension. REVIEW OF SYSTEMS: RESPIRATORY system: She had dyspnea on exertion, cough. GI system: No recent GI bleeding. No peptic ulcer disease. system: No dysuria or hematuria. Nervous system: No stroke or seizure. PHYSICAL EXAMINATION: 71-year-old female, alert, oriented, in no apparent distress. Blood pressure 128/70 with a heart rate in the 60s. HEAD: Normocephalic. Eyes sclerae anicteric. NECK: Good carotid upstroke. No bruit. No jugular venous distention. LUNGS: Clear to auscultation. HEART: Regular rate and rhythm. S1, S2. No S3, with systolic murmur ejection type, heard at the base. No diastolic murmur. No rub. ABDOMEN: Soft, nontender. Positive bowel sounds. No organomegaly. EXTREMITIES: No edema. Intact distal pulses. LAB DATA: Lab data revealed troponin less than 0.012 for 3 samples. NT proBNP of 210. BUN and creatinine 12 and 0.48. Potassium 4.1, hemoglobin of 13.1. EKG revealed a sinus mechanism with a right bundle branch block and nonspecific ST-T wave changes. There is a possibility of anterior wall myocardial infarction. Reviewing her old EKG, patient had right bundle branch block in the past. IMPRESSION: 1. Chest discomfort of unclear etiology has some atypical features for ischemic heart disease. 2. History of anxiety and stress. 3. Hypertension. 4. Hyperlipidemia. 5. Diabetes mellitus. 6. Chronic tobacco use. RECOMMENDATIONS: From the cardiac standpoint, I will proceed with a stress test to further evaluate her status and guide her treatment. I will obtain echocardiogram with Doppler and depending on her progress, further recommendations will be made. Thank you for this consult. We will follow with you. VIKY / FRANCISCO JN: [id number] /
[2021-08-19] MEDS ORDERED: POTASSIUM CHLORIDE ER 10 MEQ TAB.ER.PRT PO SCH (09:00)
[2021-08-19] MEDS ORDERED: CHOLECALCIFEROL 25 MCG (1000 IU) TABLET PO SCH (09:00)
[2021-08-19] MEDS ORDERED: PANTOPRAZOLE 40 MG TABLET PO SCH (09:00)
[2021-08-19] MEDS ORDERED: PROPRANOLOL LA 60 MG CAP.SA.24H PO SCH (09:00)
[2021-08-19] MEDS ORDERED: MAGNESIUM OXIDE 400 MG TAB PO SCH (09:00)
[2021-08-19] MEDS ORDERED: lisinopriL 20 MG TAB PO SCH (09:00)
[2021-08-19] MEDS ORDERED: CYANOCOBALAMIN 500 MCG TAB PO SCH (09:00)
[2021-08-19] MEDS ORDERED: FERROUS SULFATE 325 MG TAB PO SCH (09:00)
[2021-08-19] MEDS ORDERED: ASPIRIN 325 MG TAB PO SCH (09:00)
[2021-08-19] MEDS ORDERED: ASPIRIN 81 MG PO SCH (09:00)
[2021-08-19] MEDS ORDERED: IPRATROPIUM-ALBUTEROL 3 ML NEB INHALATION PRN (09:18)
[2021-08-19 11:06] LABS: Chol/HDL Ratio 2.12 Ratio; HDL Cholesterol 53.7 mg/dL (40.00-60.00)
[2021-08-19 11:27] LABS: Triglycerides 45.3 mg/dL (0.00-149.00); VLDL Calculation 9.06 mg/dL (5.00-40.00)
--- NOTE | 2021-08-19 12:18 | ECHOF ---
Referral Reason:cp MEASUREMENTS -------- HEIGHT: 152.4 cm WEIGHT: 63.5 kg BP: IVSd: 1.1 cm (0.6 - 1.1) LVIDd: 4.3 cm (3.9 - 5.3) LVPWd: 1.0 cm (0.6 - 1.1) IVSs: 1.5 cm LVIDs: 2.1 cm LVPWs: 1.7 cm LAESV Index (A-L): 11.84 ml/m Ao Diam: 3.4 cm (2.0 - 3.7) AV Cusp: 1.8 cm (1.5 - 2.6) LA Diam: 3.1 cm (2.7 - 3.8) MV EXCURSION: 14.577 mm (> 18.000) MV EF SLOPE: 44 mm/s (70 - 150) EPSS: 1.0 cm MV E Ayaan: 0.75 m/s MV DecT: 152 ms MV A Ayaan: 0.95 m/s MV E/A Ratio: 0.79 RAP: 5.00 mmHg RVSP: 19.65 mmHg FINDINGS -------- Sinus rhythm. This was a technically good study. The left ventricular size is normal. Left ventricular wall thickness is normal. Overall left vent ricular systolic function is normal with, an EF between 55 - 60 %. The diastolic filling pattern is normal for the age of the patient 12.32. The right ventricle is normal in size. Normal LA size by volume 22+/-6 ml/m2. The right atrial size is normal. The aortic valve is trileaflet, and appears structurally normal. No aortic stenosis or regurgitation. The mitral valve is normal. Mild mitral annular calcification present. There is trace mitral regu rgitation. The tricuspid valve appears structurally normal. Trace tricuspid regurgitation present. Right panchito tricular systolic pressure is normal at < 35 mmHg. There is no pulmonic regurgitation present. The aortic root size is normal. Normal inferior vena cava with normal inspiratory collapse consistent with estimated right atrial pre ssure of 5 mmHg. There is no pericardial effusion. CONCLUSIONS -------- 1. Left ventricular wall thickness is normal. 2. Overall left ventricular systolic function is normal with, an EF between 55 - 60 %. 3. Normal LA size by volume 22+/-6 ml/m2. 4. The aortic valve is trileaflet, and appears structurally normal. No aortic stenosis or regurgitati on. 5. There is trace mitral regurgitation. 6. Trace tricuspid regurgitation present. 7. There is no pericardial effusion. REFRIGERATION PERSON: Ana Beck RDCS
[2021-08-19 12:25] LABS: Glucose,Whole Blood 169 mg/dL (75-99)
[2021-08-19] MEDS: metFORMIN 500 MG TAB PO SCH ×2 (12:55→17:30)
[2021-08-19] MEDS ORDERED: ACETAMINOPHEN TAB 325 MG TAB PO STA (12:56)
--- NOTE | 2021-08-19 14:26 | NM ---
EXAMINATION TYPE: NM stress lexiscan cardiolite DATE OF EXAM: 08/19/2021 COMPARISON: NONE HISTORY: Chest pain TECHNIQUE: After the intravenous administration of 10.4 mCi Tc 99m Sestamibi - Cardiolite resting SP ECT images acquired 45 minutes post injection. The patient received 0.4mg Lexiscan, 24.9 mCi Tc 99m Sestamibi - Stress images obtained [address] injection FINDINGS: Review of stress and rest SPECT images demonstrates no distinct perfusion abnormality. Gated analysi s shows normal wall motion with an estimated left ventricular ejection fraction of 58 %. IMPRESSION: No scintigraphic evidence for reversible ischemia.
--- NOTE | 2021-08-19 14:40 | P.CNNES ---
History of Present Illness Consult date: 08/19/21 Requesting physician: Fiorlela Sow Reason for Consult: headache and chiari malformation History of Present Illness: This is a 71-year-old woman with history of stroke without residual deficit, meningioma of the right parietal, vascular dementia, type 2 diabetes, hypertension, hypothyroidism, left breast cancer s/p radiation (last 2 years ago), tobacco use, who presented emergency department 08/18/2021 for chest pain. Neurology is consulted for headache and the Chiari malformation. The history is obtained by the patient's daughter who are bedside. Per the patient's she's been having headache over the parietal occipital region that is intermittent and she states it's 2/10 and feels like a burning sensation. She states it lasts for about 5 minutes. She denies any photophobia, phonophobia. She denies any nausea or vomiting. She denies any diplopia. She said that she's been having headache for the last couple days. He denies of any focal weakness. Any difficulty getting her words out. In the past she did follow up with a neurologist and unsure exactly name but possibly Dr. Benoit according to daughter and that she was notified she did have meningioma. Also the neurologist notified her that she had carotid stenosis but the per the daughter's he was referring to the soles in the back of the neck was unclear whether it's carotid or vertebral artery stenosis. The neurologist referred her to a meters superintendent and she has an appointment coming up in October 2021 for ?stenosis. Regarding Chiari Malformation she was not notified by anyone and has not seen a neurosurgeon for that. Per the patient's daughters patient does have forgetfulness and was told she has vascular dementia. Some of the patient's home medication consist of Lipitor 40 mg, aspirin 81 mg daily, Exelon 3 mg 1 tablet twice a day, propranolol vitamin B12 1000 g daily, vitamin D3, metformin, Synthroid, Lantus. Patient had MRI of the brain in 01/2019 she reported that patient has extra- axial mass which is small in size and seems meningioma over the right cerebral convexity. Also patient has 8 mm right parotid gland nodule. Encephalomalacia over the left temporal lobe suggestive of previous ischemia. 5 mm asymmetric C SF prominence along the posterior margin of the left midbrain may represent a tiny arachnoid cyst but is rectus Bilby stable dating back to the prior exam. Low-lying cerebellar tonsil measuring approximately 1-2 mm below the form and magnum. Please review MRI report for further details. She had a repeated MRI of the brain on October 2019 and she reported as no significant enlargement of the right parietal extra-axial mass in comparison to the previous MRI. Old multifocal lacunar infarct. The meningeal enhancement. Lumbar puncture can be considered in the appropriate clinical setting for further evaluation. Of note there is low-lying cerebellar tonsils. Stable cyst over the right parotid gland nonenhancing lesion. Most recent vital signs: Blood pressure 159/83, heart rate of 77, respiratory of 16, temperature of 98.1 Fahrenheit oral and pulse ox of 94% room air. CBC with differential is unremarkable. History panel is sodium 135, redness 0.48, calcium 7.3, magnesium is 1.3, AST of 526 ALT of 16 Cholesterol 214, HDL is 53 and there is no LDL level value. [place] virus PCR was not detected. CT of the head is reported as stable extra-dural mass along the right parietal convexity which is calcified most likely in the basis of meningioma. Finding are suggestive of Chiari malformation recommend follow-up MRI. Review of Systems Review of system: The 12 point system was reviewed and apparent positive and negative per HPI. Past Medical History Past Medical History: Cancer, COPD, Dementia, Diabetes Mellitus, GERD/Reflux, Hyperlipidemia, Hypertension, Liver Disease, Memory Impairment, Musculoskeletal Disorder, Osteoarthritis (OA), Skin Disorder, Thyroid Disorder Additional Past Medical History / Comment(s): Hx Childhood Hepatitis A, Pericarditis 2004, DDD, Hydradenitis in skin folds, Hiatal Hernia. Hx Cervical Cancer. Hx left breast cancer 2019, had radiation tx. First stage of vascular Dementia. swallowing difficulties History of Any Multi-Drug Resistant Organisms: None Reported Past Surgical History: Breast Surgery, Cholecystectomy, Joint Replacement, Orthopedic Surgery Additional Past Surgical History / Comment(s): EGD, left knee replacement, bilateral trigger fingers, right hand carpal tunnel, Cervical Procedure for Cancer, left Breast Biopsy. Past Anesthesia/Blood Transfusion Reactions: Postoperative Nausea & Vomiting (PONV) Past Psychological History: Anxiety, Panic Disorder Smoking Status: Current every day smoker Past Alcohol Use History: None Reported Past Drug Use History: None Reported - Past Family History Sister(s) Family Medical History: Deep Vein Thrombosis (DVT) Medications and Allergies Home Medications Medication Instructions Recorded Confirmed Type Aspirin 81 mg PO DAILY 07/06/15 08/18/21 History Atorvastatin [Lipitor] 40 mg PO HS 07/06/15 08/18/21 History Ferrous Sulfate [Feosol] 65 mg PO DAILY 07/06/15 08/18/21 History Magnesium Oxide [Magox 400] 400 mg PO DAILY 07/06/15 08/18/21 History Omeprazole [PriLOSEC] 20 mg PO DAILY 07/06/15 08/18/21 History metFORMIN HCL [Glucophage] 1,000 mg PO BID 07/06/15 08/18/21 History ramipriL [Altace] 5 mg PO DAILY 07/06/15 08/18/21 History Insulin Aspart [NovoLOG Flexpen] See Protocol SQ AC-TID PRN 06/26/16 08/18/21 History Insulin Glargine [Lantus] 6 unit SQ HS 06/26/16 08/18/21 History Cyanocobalamin (Vitamin B-12) 1,000 mcg PO DAILY 07/28/17 08/18/21 History [Vitamin B-12] Exemestane [Aromasin] 25 mg PO DAILY 06/22/20 08/18/21 History Albuterol Sulfate [Proventil Hfa] 2 puff INHALATION RT-Q4H PRN 11/29/20 08/18/21 History Cholecalciferol [Vitamin D3 (25 50 mcg PO DAILY 11/29/20 08/18/21 History Mcg = 1000 Iu)] Potassium Chloride [Potassium 10 meq PO DAILY 11/29/20 08/18/21 History Chloride ER] Aclidinium [place] [Tudorza 1 puff INHALATION RT-BID 05/21/21 08/18/21 History Pressair] Fluticasone Propion/Salmeterol 1 puff INHALATION RT-BID 05/21/21 08/18/21 History [Wixela 250-50 Inhub] ALPRAZolam [Xanax] 0.25 mg PO HS PRN 06/20/21 08/18/21 History Levothyroxine Sodium [Synthroid] 25 mcg PO DAILY 08/18/21 08/18/21 History Propranolol LA [Inderal LA] 60 mg PO DAILY 08/19/21 08/19/21 History Rivastigmine Tartrate [Exelon] 3 mg PO BID 08/19/21 08/19/21 History Allergies Allergy/AdvReac Type Severity Reaction Status Date / Time adhesive tape Allergy BLISTERS Verified 08/18/21 09:45 SKIN, OK TO USE PAPER TAPE codeine AdvReac Nausea Verified 08/18/21 09:45 Physical Examination - Vital Signs Vital Signs: Vital Signs Temp Pulse Pulse Pulse Resp BP BP 08/19/21 09:23 76 08/19/21 09:16 74 08/19/21 08:00 77 75 16 08/19/21 07:00 98.1 F 77 16 159/83 08/19/21 01:52 97.7 F 65 15 08/18/21 19:40 97.7 F 67 16 08/18/21 16:43 98.3 F 81 18 111/63 08/18/21 16:42 98.3 F 75 18 08/18/21 15:49 98.1 F 81 18 111/63 BP Pulse Ox 08/19/21 09:23 08/19/21 09:16 08/19/21 08:00 08/19/21 07:00 94 L 08/19/21 01:52 128/75 97 08/18/21 19:40 105/69 98 08/18/21 16:43 98 08/18/21 16:42 103/67 98 08/18/21 15:49 97 Intake and Output 08/18/21 08/19/21 08/19/21 22:59 06:59 14:59 Intake Total 240 Balance 240 Intake: Oral 240 Other: Voiding Method Toilet # Voids 2 2 GENERAL: The patient is lying in bed and is mild acute distress. CHEST: The heart rate is regular rate rhythm. No murmurs to auscultation. LUNG: Clear to auscultation bilaterally no wheezing noted throughout. Not labored breathing. ABDOMEN/GI: Bowel sounds present in all 4 quadrants. No tenderness to palpation throughout. NEUROLOGICAL: Higher mental function: The patient is awake, alert, oriented to self, place and time. Patient is following commands. No aphasia and no neglect. Cranial nerves: The pupils are round, equal and reactive to light and accommodation. Visual rocha are full to confrontation throughout. Extraocular movement is intact no nystagmus is noted. Facial sensation is normal to touch throughout. The facial strength is normal throughout. Hearing is normal bilaterally to hand rub. Tongue is midline and moved [id number] without any difficulty. No dysarthria is noted. Shoulder shrug is normal bilaterally. Motor: The strength is 5 over 5 throughout. Normal tone and bulk. Cerebellum: Normal finger to nose heel to barrientos bilaterally. Sensation: Sensation is normal to touch throughout. Reflexes (right/left): 2+ throughout. Plantars are mute bilaterally. Results - Laboratory Findings CBC and BMP: 08/18/21 09:16 08/18/21 09:16 Abnormal Lab Findings: Abnormal Labs 08/18/21 08/18/21 08/18/21 09:16 09:16 12:44 Lymphocytes # 0.8 L Sodium 135 L Chloride 97 L Creatinine 0.48 L Glucose 144 H POC Glucose (mg/dL) 146 H Calcium 10.3 H Magnesium 1.3 L 08/18/21 08/18/21 08/19/21 17:17 20:02 07:26 Lymphocytes # Sodium Chloride Creatinine Glucose POC Glucose (mg/dL) 129 H 157 H 117 H Calcium Magnesium Assessment and Plan Assessment: History of Chiari malformation Mild Cephalgia due to above Acute chest pain History of small meningioma over the right parietal History of strokes Vascular Dementia Type 2 diabetes Hypertension next on hypothyroidism History of left breast cancer s/p radiation (last 2 years ago) Tobacco use (smoke 1/2 to 1 PPD) Plan: Patient is on aspirin 81 mg daily and Lipitor 40 mg daily at bedtime which is sufficient for secondary stroke prophylaxis. Ordered that CTA of the head and neck to assess this questionable stenosis per the daughter she was notified by the neurologist she had carotid but he was pointing to the back of her neck. And he referred her to a meters superintendent for her stenosis. Recommend MRI of the brain to assess Chiari malformation compared to the previous image in October 2019. Patient she would like to get this test as an outpatient and not wait any further longer for the MRI. Cardiology team is on board She was counseled on tobacco cessation. We'll defer the rest of the medical management to the primary team Upon discharge the patient needs to follow-up with a neurologist in outpatient as well as recommend follow-up with a neurosurgeon for surveillance. Patient's daughter make sure she follows up with a neurologist as well as the we'll make sure she follows up with a neurosurgeon as outpatient as well. The plan is discussed with the patient and her two daughters who are at bedside. Thank you for the consultation. Enrike Mariano M.D. Neuro-hospitalist Time with Patient: Greater than 30
--- NOTE | 2021-08-19 14:57 | EST ---
EXERCISE STRESS AGE: 71 SEX: F HT: 5' WT: 139 lbs. PROTOCOL: Lexiscan STAGE: NA DURATION OF EXERCISE: 5 minutes HEART RATE REST: 81 BLOOD PRESSURE REST: 161/97 MAXIMUM HEART RATE ACHIEVED: 107 MAXIMUM BLOOD PRESSURE: 161/97 85% MPHR: 127 100% MPHR: 149 METS: NA INDICATIONS: Chest pain CLINICAL INFORMATION: Baseline rhythm is sinus mechanism, rate of 81, right bundle branch block. Baseline blood pressure 161/97 mmHg. Patient received injection of Lexiscan. Electrocardiograph monitoring revealed no evidence of diagnostic ischemic ST deviation. Cardiolite was injected per protocol. CONCLUSION: 1. Nondiagnostic electrocardiograph stress testing. 2. Nuclear images will be reported separately. MMODL / IJN: [id number] /
[2021-08-19 15:31] VITALS: BP 140/83; PULSE 63; TEMP 98.2
[2021-08-19 17:26] LABS: Glucose,Whole Blood 81 mg/dL (75-99)
--- NOTE | 2021-08-19 18:56 | CT ---
EXAMINATION TYPE: CT angio head neck DATE OF EXAM: 08/19/2021 COMPARISON: None HISTORY: Headache, r/o aneurysm, hx cranian stenosis. CT DLP: 260.20 mGycm Automated exposure control for dose reduction was used. CONTRAST: Performed with IV Contrast, patient injected with 65 mL of Isovue 370. Images obtained from the aortic arch to the vertex of the brain with IV contrast. There are 3-D post processed images. There is normal branching pattern of the great vessels on the aortic arch. There is bilateral arteria l flow in the subclavian arteries. There is arterial flow in the common internal and external carotid arteries bilaterally. There is arterial flow in both vertebral arteries. There is diminutive basilar artery. The posterior cerebral arteries appear to fill mostly through the posterior communicating ar teries. There is no evidence of carotid or vertebral artery aneurysm or dissection. No evidence of ca rotid or vertebral artery stenosis. There is arterial flow in the anterior middle and posterior cerebral arteries. The intracranial inter nal carotid arteries are somewhat ectatic but no focal aneurysm seen. There is normal enhancement of the venous sinuses. There is no mass effect. I see no evidence of intr acranial arterial stenosis. There is no sign of intracranial aneurysm or neovascularity. IMPRESSION: Negative CT angiogram of the head and neck. There is small vertebral arteries with large posterior co mmunicating arteries filling the posterior cerebral arteries.
[2021-08-19] MEDS ORDERED: SYMBICORT 80-4.5 MCG INHALER INHALATION SCH (20:00)
--- NOTE | 2021-08-22 09:24 | P.DS ---
Providers Date of admission: 08/18/21 11:32 Expected date of discharge: 08/19/21 Attending physician: Luciano Dennis Consults: 08/18/21 11:24 Consult Physician Urgent Consulting Provider: [facility] Consult Reason/Comments: Chest pain Do you want consulting provider notified?: Yes 08/19/21 08:57 Consult Physician Routine Consulting Provider: Enrike Mariano Consult Reason/Comments: headahe, chiari malformation Do you want consulting provider notified?: Yes Primary care physician: Xiomara Ortiz [facility] Course: HISTORY OF PRESENT ILLNESS 71-year-old female one of Dr. Ortiz's patient with past medical history of breast cancer, COPD, dementia, type 2 diabetes on insulin, hypertension, chronic hypothyroidism who has multiple other medical problem with previous history of pericarditis back in 2003 who presented to the emergency department at [facility] with current history of chest pain in the midsternum along with a left side associated with mild shortness of breath lightheadedness. The patient with mild nausea feeling. Symptom were not correlated to exertion or position symptom has been become much worse patient is having significant shortness of breath with it lately. Patient has multiple risk factor for coronary disease from smoking, hypertension, diabetes, hyperlipidemia and family history EKG demurs department showed significant change in that anterolateral leads with right bundle block with mild tachycardia. Troponin was negative at the time patient be admitted to the hospital continue CK with troponin 3 be seeing cardiology echocardiogram and stress test will be order. 08/19: Patient continues to complain of headache in the back of her head towards her forehead. She does have some tenderness in the occipital neuralgia area. She follows with a Dr. Krueger (sp) at [facility] as a neurologist and has been told that she had a blockage in her carotid artery. Patient has been seen by neurology and headache most likely due to chiari malformation and recommended continuing aspirin 81 mg daily, Lipitor 40 mg at bedtime. CTA of the head and neck was ordered. Neurology is also recommended MRI to assess adriana malformation which patient would like to have done as an outpatient. Patient needs follow-up with neurologist and follow-up with neurosurgeon for surveillance CT angiogram of the head and neck was negative. A small vertebral arteries with large posterior 20 kidney arteries filling the posterior cerebral arteries. Lexiscan stress test was negative and patient was cleared for discharge by cardiology. Echocardiogram reveals EF of 55-60% with trace mitral regurgitation, trace tricuspid regurgitation. Patient was discharged home in stable condition. DISCHARGE DIAGNOSES 1. Atypical chest pain 2 significant headache with trigeminal neuralgia 3 COPD 4 breast-cancer: Has been in remission 5 type 2 diabetes 6 hypothyroidism 7 hyperlipidemia 8 iron deficiency anemia 9 familial tremor 10 hypertension 11 memory loss secondary to Alzheimer disease 12 COVID-19 testing, was negative. DISCHARGE PLAN Home Greater than 35 minutes was utilized and coordinating patient's discharge. Impression and plan of care have been directed as dictated by the signing physician. Penny Miller nurse practitioner acting as scribe for signing physician. Patient Condition at Discharge: Good Plan - Discharge Summary New Discharge Prescriptions: Continue Ferrous Sulfate [Iron (65 MG Elemental)] 65 mg PO DAILY Aspirin 81 mg PO DAILY Omeprazole [PriLOSEC] 20 mg PO DAILY Atorvastatin [Lipitor] 40 mg PO HS ramipriL [Altace] 5 mg PO DAILY metFORMIN HCL [Glucophage] 1,000 mg PO BID Magnesium Oxide [Magox 400] 400 mg PO DAILY Insulin Glargine [Lantus Vial] 6 unit SQ HS Insulin Aspart [NovoLOG Flexpen] See Protocol SQ AC-TID PRN PRN Reason: HIGH BLOOD SUGAR Cyanocobalamin (Vitamin B-12) [Vitamin B-12] 1,000 mcg PO DAILY Exemestane [Aromasin] 25 mg PO DAILY Albuterol Sulfate [Proventil Hfa] 2 puff INHALATION RT-Q4H PRN PRN Reason: Shortness Of Breath Cholecalciferol [Vitamin D3 (25 Mcg = 1000 Iu)] 50 mcg PO DAILY Potassium Chloride [Potassium Chloride ER] 10 meq PO DAILY Aclidinium [place] [Tudorza Pressair] 1 puff INHALATION RT-BID Fluticasone Propion/Salmeterol [Wixela 250-50 Inhub] 1 puff INHALATION RT-BID Rivastigmine Tartrate [Exelon] 3 mg PO BID ALPRAZolam [Xanax] 0.25 mg PO HS PRN PRN Reason: Anxiety Levothyroxine Sodium [Synthroid] 25 mcg PO DAILY Propranolol LA [Inderal LA] 60 mg PO DAILY Discharge Medication List Aspirin 81 mg PO DAILY 07/06/15 [History] Atorvastatin [Lipitor] 40 mg PO HS 07/06/15 [History] Ferrous Sulfate [Iron (65 MG Elemental)] 65 mg PO DAILY 07/06/15 [History] Magnesium Oxide [Magox 400] 400 mg PO DAILY 07/06/15 [History] Omeprazole [PriLOSEC] 20 mg PO DAILY 07/06/15 [History] metFORMIN HCL [Glucophage] 1,000 mg PO BID 07/06/15 [History] ramipriL [Altace] 5 mg PO DAILY 07/06/15 [History] Insulin Aspart [NovoLOG Flexpen] See Protocol SQ AC-TID PRN 06/26/16 [History] Insulin Glargine [Lantus Vial] 6 unit SQ HS 06/26/16 [History] Cyanocobalamin (Vitamin B-12) [Vitamin B-12] 1,000 mcg PO DAILY 07/28/17 [History] Exemestane [Aromasin] 25 mg PO DAILY 06/22/20 [History] Albuterol Sulfate [Proventil Hfa] 2 puff INHALATION RT-Q4H PRN 11/29/20 [History] Cholecalciferol [Vitamin D3 (25 Mcg = 1000 Iu)] 50 mcg PO DAILY 11/29/20 [History] Potassium Chloride [Potassium Chloride ER] 10 meq PO DAILY 11/29/20 [History] Aclidinium [place] [Tudorza Pressair] 1 puff INHALATION RT-BID 05/21/21 [History] Fluticasone Propion/Salmeterol [Wixela 250-50 Inhub] 1 puff INHALATION RT-BID 05/21/21 [History] ALPRAZolam [Xanax] 0.25 mg PO HS PRN 06/20/21 [History] Levothyroxine Sodium [Synthroid] 25 mcg PO DAILY 08/18/21 [History] Propranolol LA [Inderal LA] 60 mg PO DAILY 08/19/21 [History] Rivastigmine Tartrate [Exelon] 3 mg PO BID 08/19/21 [History] Follow up Appointment(s)/Referral(s): iXomara Ortiz MD [Primary Care Provider] - 1 Week Lino Peña DO [STAFF PHYSICIAN] - 2 Weeks (research and development chemist ) Carlton Montoya MD [Medical Doctor] - 1 Week (neurologist. ) Patient Instructions/Handouts: Chest Pain (DC) Activity/Diet/Wound Care/Special Instructions: Please Provide phone number for our pain management clinic to follow-up as an outpatient Pain Management Clinic phone number: [phone] Discharge Disposition: HOME SELF-CARE
== END 2021-08-19 19:46 | disposition home or self-care (01) ==
LOC: EC 08:20 → 6NMEDSUR 11:32
PROVIDERS: ADMIT Internal Medicine Geriatric Medicine; ATTEND Internal Medicine Geriatric Medicine
DX: R07.89 Other chest pain (principal); R51.9 Headache, unspecified; I10 Essential (primary) hypertension; E78.5 Hyperlipidemia, unspecified; E11.9 Type 2 diabetes mellitus without complications; J44.9 Chronic obstructive pulmonary disease, unspecified; D50.9 Iron deficiency anemia, unspecified; E03.9 Hypothyroidism, unspecified; G25.0 Essential tremor; F02.80 Dementia in other diseases classified elsewhere, unspecified severity, without behavioral disturbance, psychotic disturbance, mood disturbance, and anxiety; G30.9 Alzheimer's disease, unspecified; F41.0 Panic disorder [episodic paroxysmal anxiety]; R11.0 Nausea; R42 Dizziness and giddiness; R00.0 Tachycardia, unspecified; G50.0 Trigeminal neuralgia; K21.9 Gastro-esophageal reflux disease without esophagitis; M19.90 Unspecified osteoarthritis, unspecified site; F41.9 Anxiety disorder, unspecified; Z63.8 Other specified problems related to primary support group; I45.10 Unspecified right bundle-branch block; F01.50 Vascular dementia, unspecified severity, without behavioral disturbance, psychotic disturbance, mood disturbance, and anxiety; R13.10 Dysphagia, unspecified; D32.9 Benign neoplasm of meninges, unspecified; F17.210 Nicotine dependence, cigarettes, uncomplicated; G93.89 Other specified disorders of brain; I65.29 Occlusion and stenosis of unspecified carotid artery; M54.81 Occipital neuralgia; Z20.822 Contact with and (suspected) exposure to COVID-19; Z86.73 Personal history of transient ischemic attack (TIA), and cerebral infarction without residual deficits; Z86.011 Personal history of benign neoplasm of the brain; Z86.19 Personal history of other infectious and parasitic diseases; Z92.3 Personal history of irradiation; Z85.41 Personal history of malignant neoplasm of cervix uteri; Z85.3 Personal history of malignant neoplasm of breast; Z87.798 Personal history of other (corrected) congenital malformations; Z79.82 Long term (current) use of aspirin; Z79.899 Other long term (current) drug therapy; Z79.4 Long term (current) use of insulin; Z79.811 Long term (current) use of aromatase inhibitors; Z79.890 Hormone replacement therapy; Z91.048 Other nonmedicinal substance allergy status; Z90.49 Acquired absence of other specified parts of digestive tract; Z71.6 Tobacco abuse counseling; Z96.652 Presence of left artificial knee joint; Z82.49 Family history of ischemic heart disease and other diseases of the circulatory system; Z82.3 Family history of stroke; Z83.6 Family history of other diseases of the respiratory system
CPT/HCPCS: 96365; 96366; 99285; 36415; 94640; 93005; 93017; 93306; 85379; 83880; 80061; 80053; 83735; 84484; 85025; 85610; 85730; 87635; 71046; 70496; 70450; 70498; 78452; G0378 ×2; A9500; J3475; J2785; Q9967

== ENCOUNTER → 2021-10-23 | Outpatient (CLI) | payer MEDICARE, OTHER ==
--- NOTE | 2021-10-23 14:32 | XR ---
EXAMINATION TYPE: XR chest 2V DATE OF EXAM: 10/23/2021 COMPARISON: Chest x-ray 08/18/2021, CT 08/19/2021 HISTORY: J 44.9, COPD TECHNIQUE: Frontal and lateral views of the chest are obtained. FINDINGS: The patient is rotated. Prominent lung volumes are consistent with patient's history of un derlying COPD. The aorta is dense. There is no focal air space opacity, pleural effusion, or pneumoth orax seen. The cardiac silhouette size is within normal limits. The osseous structures are intact, there is thoracic spondylosis. IMPRESSION: No acute cardiopulmonary process. Emphysema.
== END | disposition home or self-care (01) ==
LOC: RADXRMAIN 13:28
PROVIDERS: ATTEND Family Medicine
DX: J43.9 Emphysema, unspecified (principal)
CPT/HCPCS: 71046

== ENCOUNTER → 2021-10-23 | Outpatient (CLI) | payer MEDICARE, OTHER | END | disposition home or self-care (01) | LOC: LABPAT 13:11 | PROVIDERS: ATTEND Orthopaedic Surgery | DX: Z01.812 Encounter for preprocedural laboratory examination (principal); M17.11 Unilateral primary osteoarthritis, right knee | CPT/HCPCS: 87070 ==

== ENCOUNTER → 2021-10-24 | Outpatient (CLI) | payer MEDICARE, OTHER ==
[2021-10-24 13:57] LABS: Basophils % (A) 1 %; Eosinophils # (A) 0.1 k/uL (0-0.7); Eosinophils % (A) 2 %; HCT 37.2 % (34.0-46.0); HGB 12.3 gm/dL (11.4-16.0); Lymphocytes # (A) 1.3 k/uL (1.0-4.8); Lymphocytes % (A) 17 %; MCH 30.1 pg (25.0-35.0); MCV 91.3 fL (80.0-100.0); Mean Platelet Volume 7.8; Monocytes # (A) 0.3 k/uL (0-1.0); Monocytes % (A) 4 %; Neutrophils % (A) 76 %; Platelet Count 218 k/uL (150-450); RBC 4.07 m/uL (3.80-5.40); RDW 14.2 % (11.5-15.5)
[2021-10-24 14:04] LABS: Potassium 4.4 mmol/L (3.5-5.1)
[2021-10-24 14:05] LABS: African American GFR (CKD) >90 (>60 ml/min/1.73 sqM); Anion Gap 9 mmol/L; Blood Urea Nitrogen 15 mg/dL (7-17); Calcium 10.5 mg/dL (8.4-10.2); Carbon Dioxide 28 mmol/L (22-30); Chloride 101 mmol/L (98-107); Glucose 112 mg/dL (74-99); Non-African American GFR(CKD) >90 (>60 ml/min/1.73 sqM); Sodium 138 mmol/L (137-145)
[2021-10-24 14:17] LABS: Prothrombin Time 10.3 sec (9.0-12.0)
== END | disposition home or self-care (01) ==
LOC: LABWHC1 12:46
PROVIDERS: ATTEND Orthopaedic Surgery
DX: Z01.812 Encounter for preprocedural laboratory examination (principal); M17.11 Unilateral primary osteoarthritis, right knee
CPT/HCPCS: 36415; 80048; 85025; 85610

== ENCOUNTER → 2021-11-28 | Outpatient (CLI) | payer MEDICARE, OTHER ==
--- NOTE | 2021-11-28 11:41 | MM ---
Reason for exam: additional evaluation requested from prior study. Last mammogram was performed 1 year ago. History: Patient is postmenopausal and has history of breast cancer at age 68. Malignant MG pre op needle loc LT of the left breast, April 26, 2019. Lumpectomy of the left breast, April 26, 2019. Malignant MG stereo VAD BX LT of the left breast, March 04, 2019. Taking antineoplastic for 1 year. Physical Findings: Nurse did not find any significant physical abnormalities on exam. MG 3D Diag Mammo W/Cad MOLLY Bilateral CC and MLO view(s) were taken. Prior study comparison: November 26, 2020, bilateral MG 3d diag mammo w/cad MOLLY. November 21, 2019, bilateral MG 3d diag mammo w/cad MOLLY. There are scattered fibroglandular densities. There is chronic nodularity in the right breast. Post surgical and post therapy change left breast. No significant new findings when compared with previous films. These results were verbally communicated with the patient and result sheet given to the patient on 11/28/21. ASSESSMENT: Benign, BI-RAD 2 RECOMMENDATION: Routine screening mammogram of both breasts in 1 year.
== END | disposition home or self-care (01) ==
LOC: RADMAMWWP 08:48
PROVIDERS: ATTEND Surgery
DX: Z85.3 Personal history of malignant neoplasm of breast (principal)
CPT/HCPCS: 77066; G0279; 77062

== ENCOUNTER → 2021-12-05 | Outpatient (CLI) | payer MEDICARE, OTHER ==
[2021-12-05 08:46] VITALS: BP 147/89; PULSE 58; RESP 18; TEMP 97.6
--- NOTE | 2021-12-05 09:43 | P.PN ---
Subjective Progress Note Date: 12/05/21 Principal diagnosis: stage IA left breast cancer/hidradenitis stage IA left breast cancer, bilateral hydradenitis worse on the right Stage IA [id number]-G1 Estela is a 71-year-old white female status post left breast lumpectomy and sentinel node biopsy. This was done in April 2019. The pathology revealed a grade 1A invasive ductal carcinoma which was 4 mm in size and the margins were negative. She did have some DCIS and distance from the closest margin was 1 mm from the blue inked margin. She completed 6 weeks of radiation therapy. She is taking an anti-hormone medication, aromisin She is having some hot flashes related to this, but this has improved. She did not have any chemotherapy. The patient had a bilateral mammogram on which was benign BIRADS 2. She was seen in consultation with Dr. Woods on . The patient has had bilateral radiation therapy to her axillas for treatment of the hidradenitis. This finished on 12/27/2019 She had partial response and underwent a second course of therapy finishing on . At this time she is not complaining of any new lumps masses or nodules in her breast. She is not complaining of any skin changes. She complained of the nipple discharge. She's not had any recent trauma or infection in the breast. She does have some discomfort in the inner lower aspect of the left breast with it appears to be some hidradenitis present. The hydrated adenitis has improved in both axillas. She does not have any recent flareups. She had a bilateral mammogram on 11-28-21 which was benign BIRAD 2 on the draft report. Note reviewed from Dr. Rosen 07-23-21 reviewed. Family history: Maternal grandmother: Skin cancer Patient: Cervical cancer, breast cancer Hormonal history: Menarche: 12 with one miscarriage did not breast-feed, first child born at 21 Menopause: 41 control pills: 4 years Hormones: Negative Surgical history: Cholecystectomy Left knee replacement Trigger finger release Left carpal tunnel surgery Left lumpectomy and sentinel node biopsy scheduled for total right knee replacement Medical history: Hidradenitis Arthritis Herniated disc in neck tremor Diabetes Hypothyroid dementia starting anxiety Social history: smoke: 1/2 PPD Alcohol: Negative Drugs: Negative Review of systems: HEENT: Negative Cardiovascular: Hypertension Respiratory: Smoke or emphysema GI: Irritable bowel syndrome history of hepatitis : Negative Menstruation: Postmenopausal Musculoskeletal: Arthritis Integument: Hidradenitis under both arms worse on the right and bilateral groin Neurologic: Tremor, beginning of dementia Psychiatric: Anxiety Endocrine: Weight loss ALLERGIES:seasonal allergies Objective - Vital Signs Vital signs: Vital Signs Temp 97.6 F 12/05/21 08:37 Pulse 58 L 12/05/21 08:37 Resp 18 12/05/21 08:37 BP 147/89 12/05/21 08:37 Pulse Ox 98 12/05/21 08:37 Intake & Output 12/04/21 12/05/21 12/05/21 18:59 06:59 18:59 Weight 64.41 kg - Constitutional General appearance: Present: cooperative - EENT Eyes: Present: EOMI ENT: Present: hearing grossly normal - Neck Neck: Present: normal ROM - Respiratory Respiratory: bilateral: CTA - Cardiovascular Rhythm: regular Heart sounds: normal: S1, S2 - Gastrointestinal General gastrointestinal: Present: soft - Integumentary Integumentary Comment(s): bilateral axillary healed hidradenitis - Musculoskeletal Musculoskeletal Comment(s): walks without a cane - Psychiatric Psychiatric: Present: A&O x's 3, appropriate affect, intact judgment & insight - Additional findings Additional findings: Breast Exam: BRA: 38C inspection: Bilateral axillary hidradenitis healed, hidradenitis healed under both breast slightly increased in the inner medial aspect of the left breast, bilateral grade 3 ptosis Palpation: Right breast: Multiple positional exam fibrocystic changes no discrete dominant masses or nodules of concern Right axilla: Hidradenitis well-healed no adenopathy of concern Left breast: Multi-positional exam fibrocystic changes no discrete dominant masses or nodules of concern, hidradenitis inferior aspects of both breast Left axilla: Hidradenitis well-healed fungal infection under both breasts Assessment and Plan Assessment: Impression: Hidradenitis Arthritis 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 6 months for physician exam Follow up sooner if patient has continued discomfort in the left breast in the lower inner area Nystatin for fungal infection under both breasts CC: Dr. Ortiz
== END | disposition home or self-care (01) ==
LOC: WWCWWP 08:24
PROVIDERS: ATTEND Surgery
DX: Z53.9 Procedure and treatment not carried out, unspecified reason (principal)

== ENCOUNTER → 2021-12-06 | Outpatient (CLI) | payer MEDICARE, OTHER ==
[2021-12-06 19:02] LABS: African American GFR (CKD) 106.3 (60.0-200.0); Anion Gap 13.3 mmol/L (10.00-18.00); BUN/Creat Ratio 14.17 Ratio (12.00-20.00); Blood Urea Nitrogen 8.5 mg/dL (9.0-27.0); Calcium 10.1 mg/dL (8.7-10.3); Carbon Dioxide 25.7 mmol/L (20.0-27.5); Non-African American GFR(CKD) 91.7 (60.0-200.0); Potassium 4.6 mmol/L (3.5-5.5)
[2021-12-06 19:07] LABS: Basophils # (A) 0.04 X 10*3/uL (0.00-0.10); Basophils % (A) 0.6 %; Eosinophils # (A) 0.12 X 10*3/uL (0.04-0.35); Eosinophils % (A) 1.8 %; HCT 34.2 % (37.2-46.3); HGB 11.3 g/dL (12.0-15.0); Immature Grans, Automated 0.3 %; Lymphocytes # (A) 1.12 X 10*3/uL (0.90-5.00); Lymphocytes % (A) 16.4 %; MCH 30.1 pg (27.0-32.0); MCV 91.2 fL (80.0-97.0); Mean Platelet Volume 10.3 fL (9.5-12.2); Monocytes # (A) 0.52 X 10*3/uL (0.20-1.00); Monocytes % (A) 7.6 %; NRBC Per 100 WBC 0 /100 WBCS (0.0-0.0); Neutrophils # (A) 5.01 X 10*3/uL (1.80-7.70); Neutrophils % (A) 73.3 %; Platelet Count 231 X 10*3/uL (140-440); RBC 3.75 X 10*6/uL (4.10-5.20); RDW 13.5 % (11.5-14.5); WBC 6.83 X 10*3/uL (4.50-10.00)
[2021-12-06 20:56] LABS: INR 0.97 (0.90-1.11); Prothrombin Time 10.7 sec (9.9-11.9)
== END | disposition home or self-care (01) ==
LOC: LABPAT 13:04
PROVIDERS: ATTEND Orthopaedic Surgery
DX: Z01.812 Encounter for preprocedural laboratory examination (principal); M17.11 Unilateral primary osteoarthritis, right knee
CPT/HCPCS: 36415; 80048; 85025; 85610

== ENCOUNTER → 2022-07-03 | Outpatient (CLI) | payer MEDICARE, OTHER ==
[2022-07-03 14:02] VITALS: BP 134/80; PULSE 60; RESP 18; TEMP 98
--- NOTE | 2022-07-03 14:45 | P.PN ---
Subjective Progress Note Date: 07/03/22 Principal diagnosis: stage IA left breast stage IA left breast cancer, bilateral hydradenitis worse on the right Stage IA [id number]-G1 Estela is a 71-year-old white female status post left breast lumpectomy and sentinel node biopsy. This was done in April 2019. The pathology revealed a grade 1A invasive ductal carcinoma which was 4 mm in size and the margins were negative. She did have some DCIS and distance from the closest margin was 1 mm from the blue inked margin. She completed 6 weeks of radiation therapy. She is taking an anti-hormone medication, aromisin She is having some hot flashes related to this, but this has improved. She did not have any chemotherapy. The patient had a bilateral mammogram on which was benign BIRADS 2. She was seen in consultation with Dr. Woods on . The patient has had bilateral radiation therapy to her axillas for treatment of the hidradenitis. This finished on 12/27/2019 She had partial response and underwent a second course of therapy finishing on . At this time she is not complaining of any new lumps masses or nodules in her breast. She is not complaining of any skin changes. She complained of the nipple discharge. She's not had any recent trauma or infection in the breast. She does have some discomfort in the inner lower aspect of the left breast with it appears to be some hidradenitis present, it has not improved but is not getting worse. The hydrated adenitis has improved in both axillas. She does not have any recent flareups under her arms, she has had some flare ups in her perineum. She was treated with radiation for this area. She had a bilateral mammogram on 11-28-21 which was benign BIRAD [address] Woods 05-22-22 reviewed. Family history: Maternal grandmother: Skin cancer Patient: Cervical cancer, breast cancer Hormonal history: Menarche: 12 with one miscarriage did not breast-feed, first child born at 21 Menopause: 41 control pills: 4 years Hormones: Negative Surgical history: Cholecystectomy Left knee replacement Trigger finger release Left carpal tunnel surgery Left lumpectomy and sentinel node biopsy scheduled for total right knee replacement Medical history: Hidradenitis Arthritis Herniated disc in neck tremor Diabetes Hypothyroid dementia starting anxiety Social history: smoke: 1/2 PPD Alcohol: Negative Drugs: Negative Review of systems: HEENT: Negative Cardiovascular: Hypertension Respiratory: Smoke or emphysema GI: Irritable bowel syndrome history of hepatitis : Negative Menstruation: Postmenopausal Musculoskeletal: Arthritis Integument: Hidradenitis under both arms worse on the right and bilateral groin Neurologic: Tremor, beginning of dementia Psychiatric: Anxiety Endocrine: Weight loss ALLERGIES:seasonal allergies Objective - Vital Signs Vital signs: Vital Signs Temp 98.0 F 07/03/22 13:57 Pulse 60 07/03/22 13:57 Resp 18 07/03/22 13:57 BP 134/80 07/03/22 13:57 Pulse Ox 97 07/03/22 13:57 FiO2 Intake & Output 07/02/22 07/03/22 07/03/22 18:59 06:59 18:59 Weight 61.235 kg - Constitutional General appearance: Present: cooperative - EENT Eyes: Present: EOMI ENT: Present: hearing grossly normal - Neck Neck: Present: normal ROM - Respiratory Respiratory: bilateral: CTA - Cardiovascular Rhythm: regular Heart sounds: normal: S1, S2 - Gastrointestinal General gastrointestinal: Present: soft - Integumentary Integumentary: Present: normal turgor - Musculoskeletal Musculoskeletal: Present: gait normal - Psychiatric Psychiatric: Present: A&O x's 3, appropriate affect, intact judgment & insight - Additional findings Additional findings: Breast Exam: BRA; XL sports bra Inspection: Low-grade 2/3 ptosis Palpation: Right breast: Multi-positional exam fibrocystic changes no dominant masses or nodules of concern, hidradenitis right axilla and under right breast Right axilla: Hidradenitis been no active infection Left breast: Multi-positional exam fibrocystic changes no dominant masses or nodules of concern, hidradenitis left axilla and under left breast no active infection Assessment and Plan Assessment: Impression: No evidence of recurrent left breast cancer Plan: Bilateral mammogram in November Taking Aromasin Continue to follow with medical and radiation oncology Follow-up in November Cc: Dr. Ortiz
== END | disposition home or self-care (01) ==
LOC: WWCWWP 13:47
PROVIDERS: ATTEND Surgery
DX: Z53.9 Procedure and treatment not carried out, unspecified reason (principal)

== ENCOUNTER → 2022-07-28 | Outpatient (CLI) | payer MEDICARE, OTHER ==
[2022-07-28 14:35] LABS: Basophils # (A) 0.04 X 10*3/uL (0.00-0.10); Basophils % (A) 0.6 %; Eosinophils # (A) 0.11 X 10*3/uL (0.04-0.35); Eosinophils % (A) 1.7 %; HCT 33.9 % (37.2-46.3); HGB 11.4 g/dL (12.0-15.0); Immature Grans, Automated 0.3 %; Lymphocytes # (A) 0.96 X 10*3/uL (0.90-5.00); MCH 30.2 pg (27.0-32.0); MCHC 33.6 g/dL (32.0-37.0); MCV 89.9 fL (80.0-97.0); Mean Platelet Volume 10.6 fL (9.5-12.2); Monocytes # (A) 0.42 X 10*3/uL (0.20-1.00); Monocytes % (A) 6.6 %; NRBC Per 100 WBC 0 /100 WBCS (0.0-0.0); Neutrophils # (A) 4.85 X 10*3/uL (1.80-7.70); Neutrophils % (A) 75.8 %; Platelet Count 231 X 10*3/uL (140-440); RBC 3.77 X 10*6/uL (4.10-5.20); RDW 14.5 % (11.5-14.5)
[2022-07-28 14:54] LABS: African American GFR (CKD) 105.5 (60.0-200.0); Albumin 4.7 g/dL (3.8-4.9); Albumin/Globulin Ratio 1.74 (1.60-3.17); Anion Gap 12.6 mmol/L (10.00-18.00); BUN/Creat Ratio 28.33 Ratio (12.00-20.00); Calcium 10.4 mg/dL (8.7-10.3); Carbon Dioxide 24.4 mmol/L (20.0-27.5); Globulin 2.7 g/dL (1.6-3.3); HDL Cholesterol 60.2 mg/dL (40.00-60.00); Non-African American GFR(CKD) 91.1 (60.0-200.0); Potassium 4.7 mmol/L (3.5-5.5); Total Bilirubin 0.4 mg/dL (0.30-1.20); Total Protein 7.4 g/dL (6.2-8.2); Triglycerides 41.9 mg/dL (0.00-149.00)
[2022-07-28 15:20] LABS: Chol/HDL Ratio 2.14 Ratio; LDL Cholesterol,Direct Reflex 56.6 mg/dL (0.00-129.00)
[2022-07-28 19:22] LABS: Microalbumin Creatinine Ratio <30 mg/g Creat (0-30); Urine Creatinine 35.6 mg/dL (28.0-217.0)
== END | disposition home or self-care (01) ==
LOC: LABWHC1 08:05
PROVIDERS: ATTEND Family Medicine
DX: Z13.1 Encounter for screening for diabetes mellitus (principal); E11.69 Type 2 diabetes mellitus with other specified complication; E78.5 Hyperlipidemia, unspecified; Z01.89 Encounter for other specified special examinations; M25.561 Pain in right knee; M17.11 Unilateral primary osteoarthritis, right knee
CPT/HCPCS: 36415; 80053; 80061; 82043; 82570; 83036; 83721; 84443; 85025; 87070

== ENCOUNTER → 2022-08-28 | Outpatient (CLI) | payer MEDICARE, OTHER ==
--- NOTE | 2022-08-28 18:00 | BD ---
EXAMINATION TYPE: Axial Bone Density DATE OF EXAM: 08/28/2022 COMPARISON: NONE CLINICAL HISTORY: 72 years year old Female. ICD-10 CODE: C50.419 BREAST CANCER, Z79.890 post-menopau emmie Height: 5 FT Weight: 138 FRAX RISK QUESTIONS: Alcohol (3 or more units per day): NO Family History (Parent hip fracture): NO Glucocorticoids (More than 3mos): NO (Ex: prednisone, prednisolone, methylprednisolone, dexamethasone, and hydrocortisone). History of Fracture in Adulthood: NO Secondary Osteoporosis: 1. Type 1 Diabetes: TYPE 2 2. Hyperthyroidism: NO 3. Menopause before 45: YES 4. Malnutrition: NO 5. Chronic liver disease: HEPATITIS Rheumatoid Arthritis: NO Current Tobacco Use: YES RISK FACTORS HISTORY OF: Surgery to Spine/Hip(right/left)/Wrist (right/left): NO Family History of Osteoporosis: NO Active: YES Diet low in dairy products/other sources of calcium: NO Postmenopausal woman: YES Take estrogen and/or progesterone medications: NO Lost more than 2 inches in height since high school: YES Frequent falls: NO Poor Health: GOOD Hyperparathyroidism: NO Adrenal Insufficiency: NO MEDICATIONS: Additional Medications: METFORMIN, Additional History: RIVASTIGMINE,RAMIPRIL,PROPRANOL. EXEMESTANE, OMEPRAZOLE, ATORVASTATAN, MAGNESIUM, LEVOTHYROXINE, METFORMIN, POTASSIUM, WIXELA, TUDORZO, LANTUS,INSULIN,NOVALOG EXAM MEASUREMENTS: Bone mineral densitometry was performed using the [employer] System. Bone mineral density as measured about the Lumbar spine is: ----- L1-L4(G/cm2): 1.475 T Score Values are as follows: ----- L1: 2.3 ----- L2: 1.9 ----- L3: 3.0 ----- L4: 2.5 ----- L1-L4: 2.5 BASELINE Bone mineral density about the R hip (g/cm2): 0.748 Bone mineral density about the L hip (g/cm2): 0.806 T Score values are as follows: -----R Neck: -2.1 -----L Neck: -1.7 -----R Total: -1.2 -----L Total: -0.7 BASELINE FRAX%s: The graph provided illustrates a 5.9 % chance for a major osteoporotic fx and a 2.5 % chance for the hips probability for fx in 10 years time. IMPRESSION: Osteopenia (T Score between -2.5 and -1). There is slightly increased risk of fracture and the patient may be considered for treatment. Re-Screen 2-5 years. NOTE: T-SCORE=SD OF THE YOUNG ADULT MEAN.
== END | disposition home or self-care (01) ==
LOC: RADBDWWP 15:22
PROVIDERS: ATTEND Internal Medicine Hematology & Oncology
DX: C50.419 Malignant neoplasm of upper-outer quadrant of unspecified female breast (principal); M85.89 Other specified disorders of bone density and structure, multiple sites; Z79.890 Hormone replacement therapy; Z78.0 Asymptomatic menopausal state
CPT/HCPCS: 77080

== ENCOUNTER → 2023-01-29 | Outpatient (CLI) | payer MEDICARE, OTHER ==
[2023-01-29 16:08] LABS: Immunoglobulin M 65.7 mg/dL (40.0-280.0)
[2023-01-29 16:25] LABS: Basophils # (A) 0.05 X 10*3/uL (0.00-0.10); Basophils % (A) 0.7 %; Eosinophils # (A) 0.12 X 10*3/uL (0.04-0.35); Eosinophils % (A) 1.7 %; HCT 33.6 % (37.2-46.3); HGB 11.1 g/dL (12.0-15.0); Immature Grans, Automated 0.4 %; Lymphocytes # (A) 1.12 X 10*3/uL (0.90-5.00); Lymphocytes % (A) 15.9 %; MCH 29.4 pg (27.0-32.0); MCV 89.1 fL (80.0-97.0); Mean Platelet Volume 10.6 fL (9.5-12.2); Monocytes % (A) 7.1 %; NRBC Per 100 WBC 0 /100 WBCS (0.0-0.0); Neutrophils # (A) 5.23 X 10*3/uL (1.80-7.70); Neutrophils % (A) 74.2 %; Platelet Count 211 X 10*3/uL (140-440); RBC 3.77 X 10*6/uL (4.10-5.20); RDW 14.6 % (11.5-14.5); WBC 7.05 X 10*3/uL (4.50-10.00)
[2023-01-29 16:43] LABS: ALT 17 U/L (8-44); AST 22 U/L (13-35); African American GFR (CKD) 101.4 (60.0-200.0); Albumin 4.5 g/dL (3.8-4.9); Albumin/Globulin Ratio 1.74 (1.60-3.17); Alkaline Phosphatase 144 U/L (41-126); BUN/Creat Ratio 21.53 Ratio (12.00-20.00); Blood Urea Nitrogen 14.6 mg/dL (9.0-27.0); Calcium 10.3 mg/dL (8.7-10.3); Carbon Dioxide 29.2 mmol/L (20.0-27.5); Chloride 100 mmol/L (96-109); Chol/HDL Ratio 1.93 Ratio; Globulin 2.6 g/dL (1.6-3.3); Glucose 125 mg/dL (70-110); LDL Cholesterol,Calculated 49.8 mg/dL (0.0-131.0); Non-African American GFR(CKD) 87.5 (60.0-200.0); Potassium 4.4 mmol/L (3.5-5.5); Sodium 140 mmol/L (135-145); Total Protein 7.1 g/dL (6.2-8.2); VLDL Calculation 9.82 mg/dL (5.00-40.00)
[2023-01-29 16:54] LABS: Immunoglobulin E 42.7 IU/mL (0.00-114.00)
== END | disposition home or self-care (01) ==
LOC: LABWHC1 10:51
PROVIDERS: ATTEND Family Medicine
DX: E11.69 Type 2 diabetes mellitus with other specified complication (principal); E11.65 Type 2 diabetes mellitus with hyperglycemia; L73.2 Hidradenitis suppurativa; E53.8 Deficiency of other specified B group vitamins; E55.9 Vitamin D deficiency, unspecified
CPT/HCPCS: 36415; 80053; 80061; 82043; 82306; 82570; 82607; 82784; 82785; 83036; 84439; 84443; 85025

== ENCOUNTER → 2023-05-22 | Outpatient (CLI) | payer MEDICARE, OTHER ==
[2023-05-22 13:11] VITALS: BP 119/71; PULSE 53; RESP 16; TEMP 98.1
--- NOTE | 2023-05-22 13:41 | P.PN ---
Subjective Progress Note Date: 05/22/23 stage IA left breast cancer invasive ductal cancer, bilateral hydradenitis worse on the right Stage IA [id number]-G1 Estela is a 71-year-old white female status post left breast lumpectomy and sentinel node biopsy. This was done in April 2019. The pathology revealed a grade 1A invasive ductal carcinoma which was 4 mm in size and the margins were negative. She did have some DCIS and distance from the closest margin was 1 mm from the blue inked margin. She completed 6 weeks of radiation therapy. She is taking an anti-hormone medication, aromisin She is having some hot flashes related to this, but this has improved. She did not have any chemotherapy. The patient had a bilateral mammogram on which was benign BIRADS 2. She was seen in consultation with Dr. Woods on . The patient has had bilateral radiation therapy to her axillas for treatment of the hidrade nitis. This finished on 12/27/2019 She had partial response and underwent a second course of therapy finishing on . At this time she is not complaining of any new lumps masses or nodules in her breast. She is not complaining of any skin changes. She complained of the nipple discharge. She's not had any recent trauma or infection in the breast. She does have some discomfort in the inner lower aspect of the left breast with it appears to be some hidradenitis present, it has not improved but is not getting worse. The hydrated adenitis has improved in both axillas. She does not have any recent flareups under her arms, she has had some flare ups in her perineum. She was treated with radiation for this area. She had a bilateral mammogram on 11-28-21 which was benign BIRAD [address] Woods 05-22-22 reviewed. 12-12-[address] Collins 08-01-22 reviewed bilateral mammogram 12-01-22 BIRAD 2 She is complaining of some tenderness in the 12 o'clock position of the left breast. She does not feel any lumps masses or nodules of concern at that site. The tenderness is been present for several months. It is intermittent in nature. It is about a 3 when it comes and only lasts for a few minutes. She is presently on exmestone hormone therapy 05-22-23 She is presently on exmestane and is tolerating it without difficulty. She continues to have some mild tenderness in the lateral aspect of the left breast which is intermittent in nature. She is not complaining of any new lumps masses or notches of concern in either breast. Family history: Maternal grandmother: Skin cancer Patient: Cervical cancer, breast cancer Hormonal history: Menarche: 12 with one miscarriage did not breast-feed, first child born at 21 Menopause: 41 control pills: 4 years Hormones: Negative Surgical history: Cholecystectomy Left knee replacement Trigger finger release Left carpal tunnel surgery Left lumpectomy and sentinel node biopsy scheduled for total right knee replacement right knee partial replacement Medical history: Hidradenitis Arthritis Herniated disc in neck tremor Diabetes Hypothyroid dementia starting anxiety dementia advancing Social history: smoke: 1/2 PPD Alcohol: Negative Drugs: Negative Review of systems: HEENT: Negative Cardiovascular: Hypertension Respiratory: Smoke or emphysema GI: Irritable bowel syndrome history of hepatitis : Negative Menstruation: Postmenopausal Musculoskeletal: Arthritis Integument: Hidradenitis under both arms worse on the right and bilateral groin Neurologic: Tremor, beginning of dementia Psychiatric: Anxiety Endocrine: Weight loss ALLERGIES:seasonal allergies Objective - Vital Signs Vital signs: Vital Signs Temp 98.1 F 05/22/23 13:06 Pulse 53 L 05/22/23 13:06 Resp 16 05/22/23 13:06 BP 119/71 05/22/23 13:06 Pulse Ox 99 05/22/23 13:06 FiO2 Intake & Output 05/21/23 05/22/23 05/22/23 18:59 06:59 18:59 Weight 63.503 kg - Constitutional General appearance: Present: cooperative - EENT Eyes: Present: EOMI ENT: Present: hearing grossly normal - Neck Neck: Present: normal ROM - Respiratory Respiratory: bilateral: CTA - Cardiovascular Heart sounds: normal: S1, S2 - Integumentary Integumentary: Present: normal turgor - Musculoskeletal Musculoskeletal: Present: gait normal - Psychiatric Psychiatric: Present: A&O x's 3, appropriate affect, intact judgment & insight - Additional findings Additional findings: Breast Exam: BRA; XL sports bra Inspection: Bilateral grade 2/3 ptosis, bilatearl hidroadenitis axillary changes Palpation: Right breast: Multi-positional exam fibrocystic changes no dominant masses or nodules of concern, hidradenitis right axilla and under right breast Right axilla: Hidradenitis no active infection Left breast: Multi-positional exam fibrocystic changes no dominant masses or nodules of concern, left axilla: hidroadenitis left axilla and under left breast no active infection Assessment and Plan Assessment: Impression: Hidradenitis Arthritis Herniated disc in neck tremor Diabetes Hypothyroid dementia starting anxiety dementia advancing left breast stage I invasive ductal cancer no recurrence Plan: bilateral mammogram in 6 months follow up in 6 months follow with medical and radiation oncology CC: Dr. Ortiz
== END ==
LOC: WWCWWP 12:29
PROVIDERS: ATTEND Surgery
DX: E03.9 Hypothyroidism, unspecified (principal); E11.9 Type 2 diabetes mellitus without complications; F17.210 Nicotine dependence, cigarettes, uncomplicated; F41.9 Anxiety disorder, unspecified; L73.2 Hidradenitis suppurativa; M19.90 Unspecified osteoarthritis, unspecified site; Z80.3 Family history of malignant neoplasm of breast; Z92.3 Personal history of irradiation; Z91.048 Other nonmedicinal substance allergy status; Z85.3 Personal history of malignant neoplasm of breast; Z88.5 Allergy status to narcotic agent; Z79.84 Long term (current) use of oral hypoglycemic drugs; Z79.890 Hormone replacement therapy; Z79.4 Long term (current) use of insulin

== ENCOUNTER → 2023-05-29 | Outpatient (CLI) | payer MEDICARE, OTHER ==
[2023-05-29 16:45] LABS: ALT 18 U/L (8-44); AST 24 U/L (13-35); Albumin 4.6 d/dL (3.8-4.9); Albumin/Globulin Ratio 1.77 Ratio (1.60-3.17); Alkaline Phosphatase 137 U/L (41-126); Calcium 10.3 mg/dL (8.7-10.3); Chloride 103 mmol/L (96-109); Chol/HDL Ratio 2.06 Ratio; Globulin 2.6 d/dL (1.6-3.3); Glucose 94 mg/dL (70-110); LDL Cholesterol,Calculated 50.9 mg/dL (0.0-131.0); Potassium 4.5 mmol/L (3.5-5.5); Sodium 141 mmol/L (135-145); T4, Free (Free Thyroxine) 1.92 ng/dL (0.80-1.80); Total Bilirubin 0.5 mg/dL (0.3-1.2); Total Protein 7.2 d/dL (6.2-8.2); VLDL Calculation 8.76 mg/dL (5.00-40.00)
[2023-05-29 23:39] LABS: Basophils # (A) 0.04 X 10*3/uL (0.00-0.10); Basophils % (A) 0.6 %; Eosinophils # (A) 0.12 X 10*3/uL (0.04-0.35); Eosinophils % (A) 1.8 %; HGB 11.4 d/dL (12.0-15.0); Lymphocytes # (A) 0.96 X 10*3/uL (0.90-5.00); Lymphocytes % (A) 14.6 %; MCH 29.4 pg (27.0-32.0); MCHC 31.7 d/dL (32.0-37.0); MCV 92.8 FL (80.0-97.0); Mean Platelet Volume 10.9 FL (9.5-12.2); Monocytes # (A) 0.48 X 10*3/uL (0.20-1.00); Monocytes % (A) 7.3 %; NRBC Per 100 WBC 0 X 10*3/uL (0.00-0.01); Neutrophils # (A) 4.95 X 10*3/uL (1.80-7.70); Neutrophils % (A) 75.5 %; Platelet Count 199 X 10*3/uL (140-440); RBC 3.88 X 10*6/uL (4.10-5.20); WBC 6.56 X 10*3/uL (4.50-10.00)
== END | disposition home or self-care (01) ==
LOC: LABWHC1 09:04
PROVIDERS: ATTEND Family Medicine
DX: E03.9 Hypothyroidism, unspecified (principal); E11.65 Type 2 diabetes mellitus with hyperglycemia; G30.0 Alzheimer's disease with early onset
CPT/HCPCS: 36415; 80053; 80061; 83036; 84439; 84443; 84480; 85025

== ENCOUNTER → 2023-12-03 | Outpatient (CLI) | payer MEDICARE, OTHER ==
--- NOTE | 2023-12-03 14:01 | P.PN ---
Subjective Progress Note Date: 12/03/23 05/22/23 stage IA left breast cancer invasive ductal cancer, bilateral hydradenitis worse on the right; April 2019 Stage IA [id number]+Her2-G1 Estela is a 71-year-old white female status post left breast lumpectomy and sentinel node biopsy. This was done in April 2019. The pathology revealed a grade 1A invasive ductal carcinoma which was 4 mm in size and the margins were negative. She did have some DCIS and distance from the closest margin was 1 mm from the blue inked margin. She completed 6 weeks of radiation therapy. She is taking an anti-hormone medication, aromisin She is having some hot flashes related to this, but this has improved. She did not have any chemotherapy. The patient had a bilateral mammogram on which was benign BIRADS 2. She was seen in consultation with Dr. Woods on . The patient has had bilateral radiation therapy to her axillas for treatment of the hidradenitis. This finished on 12/27/2019 She had partial response and underwent a second course of therapy finishing on . At this time she is not complaining of any new lumps masses or nodules in her breast. She is not complaining of any skin changes. She complained of the nipple discharge. She's not had any recent trauma or infection in the breast. She does have some discomfort in the inner lower aspect of the left breast with it appears to be some hidradenitis present, it has not improved but is not getting worse. The hydrated adenitis has improved in both axillas. She does not have any recent flareups under her arms, she has had some flare ups in her perineum. She was treated with radiation for this area. She had a bilateral mammogram on 11-28-21 which was benign BIRAD [address] Woods 05-22-22 reviewed. 12-12-[address] Collins 08-01-22 reviewed bilateral mammogram 12-01-22 BIRAD 2 She is complaining of some tenderness in the 12 o'clock position of the left breast. She does not feel any lumps masses or nodules of concern at that site. The tenderness is been present for several months. It is intermittent in nature. It is about a 3 when it comes and only lasts for a few minutes. She is presently on exmestone hormone therapy 05-22-23 She is presently on exmestane and is tolerating it without difficulty. She continues to have some mild tenderness in the lateral aspect of the left breast which is intermittent in nature. She is not complaining of any new lumps masses or notches of concern in either breast. 12-03-23 Bilateral mammogram 12-03-23 pending results Stage IA [id number]+Her2-G1 Estela is a 71-year-old white female status post left breast lumpectomy and sentinel node biopsy. This was done in April 2019. The pathology revealed a grade 1A invasive ductal carcinoma which was 4 mm in size and the margins were negative. She did have some DCIS and distance from the closest margin was 1 mm from the blue inked margin. She completed 6 weeks of radiation therapy. She is taking an anti-hormone medication, exmestane She is having some hot flashes related to this, but this has improved. She did not have any chemotherapy. She had hydroadenitis treated with radiation in both axillas She complains of pain in the lateral left breast leg. This is not new. She is not complaining of any new lumps masses or nodules of concern in either breast. Family history: Maternal grandmother: Skin cancer Patient: Cervical cancer, breast cancer Hormonal history: Menarche: 12 with one miscarriage did not breast-feed, first child born at 21 Menopause: 41 control pills: 4 years Hormones: Negative Surgical history: Cholecystectomy Left knee replacement Trigger finger release Left carpal tunnel surgery Left lumpectomy and sentinel node biopsy scheduled for total right knee replacement right knee partial replacement Medical history: Hidradenitis Arthritis Herniated disc in neck tremor Diabetes Hypothyroid dementia starting anxiety dementia advancing Social history: smoke: 1/2 PPD Alcohol: Negative Drugs: Negative Review of systems: HEENT: Negative Cardiovascular: Hypertension Respiratory: Smoke or emphysema GI: Irritable bowel syndrome history of hepatitis : Negative Menstruation: Postmenopausal Musculoskeletal: Arthritis Integument: Hidradenitis under both arms worse on the right and bilateral groin Neurologic: Tremor, beginning of dementia Psychiatric: Anxiety Endocrine: Weight loss ALLERGIES:seasonal allergies Objective - Constitutional General appearance: Present: cooperative - EENT Eyes: Present: EOMI ENT: Present: hearing grossly normal - Neck Neck: Present: normal ROM - Respiratory Respiratory: bilateral: CTA - Cardiovascular Heart sounds: normal: S1, S2 - Integumentary Integumentary: Present: normal turgor - Musculoskeletal Musculoskeletal: Present: gait normal - Psychiatric Psychiatric: Present: A&O x's 3, appropriate affect, intact judgment & insight - Additional findings Additional findings: Breast Exam: BRA; XL sports bra Inspection: Bilateral grade 2/3 ptosis, bilatearl hidroadenitis axillary changes, and changes under her breast Palpation: Right breast: Multi-positional exam fibrocystic changes no dominant masses or nodules of concern, hidradenitis right axilla and under right breast Right axilla: Hidradenitis no active infection Left breast: Multi-positional exam fibrocystic changes no dominant masses or nodules of concern, left axilla: hidroadenitis left axilla and under left breast no active infection Assessment and Plan Assessment: Impression: Hidradenitis Arthritis 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 Ortiz
--- NOTE | 2023-12-03 14:11 | MM ---
Reason for Exam: Additional evaluation requested from prior study. Last screening mammogram was performed 12 month(s) ago. Patient History: Menarche at age 10. First Full-Term at age 20. Postmenopausal. Breast cancer, left, age 68. Previous chest radiation therapy at age 68. Previous chemotherapy at age 68. 04/26/2019, Lumpectomy on the Left side. 04/26/2019, Malignant Core Biopsy on the left side. 03/04/2019, Malignant Core Biopsy on the left side. Prior Study Comparison: 01/08/2016 Screening Mammogram, Unknown. 01/18/2019 Screening Mammogram, Unknown. 11/21/2019 Bilateral Diagnostic Mammogram, [facility]. 11/26/2020 Bilateral Diagnostic Mammogram, [facility]. 11/28/2021 Bilateral Diagnostic Mammogram, [facility]. 12/01/2022 Bilateral MG 3D diag mammo w/cad MOLLY, [facility]. Tissue Density: There are scattered fibroglandular densities. Findings: Analyzed By CAD. There is some nodularity posterior upper right breast. On additional views and 3-D images, unclear if this represents a low axillary tail lymph node which is more pronounced or a tangle of vessels. It becomes less pronounced on some of the images. Precautionary six-month follow-up recommended. Otherwise, similar postsurgical change left breast and some scattered coarse calcifications. Microclip relating to prior biopsies. Prominent lymph nodes in the axilla are unchanged. Overall Assessment: Probably benign, BI-RAD 3 Management: Diagnostic Mammogram of the right breast in 6 months. . Results were given to the patient verbally at the time of exam. Patient should continue monthly self-breast exams. A clinical breast exam by your physician is recommended on an annual basis. This exam should not preclude additional follow-up of suspicious palpable abnormalities. Note on Donna scores and lifetime risk: 1. A Donna score greater than 3% is considered moderate risk. If this is the case, consider specialist referral to assess eligibility for a risk reducing agent. 2. If overall lifetime risk for the development of breast cancer is 20% or higher, the patient may qualify for future screening with alternating mammogram and breast MRI. Electronically signed and approved by: Leah Freedman M.D. Radiologist
== END | disposition home or self-care (01) ==
LOC: RADMAMWWP 12:47
PROVIDERS: ATTEND Surgery
DX: R92.323 Mammographic fibroglandular density, bilateral breasts (principal); Z85.3 Personal history of malignant neoplasm of breast; Z78.0 Asymptomatic menopausal state
CPT/HCPCS: 77066; G0279; 77062

== ENCOUNTER → 2023-12-03 | Outpatient (CLI) | payer MEDICARE, OTHER ==
[2023-12-03 14:20] VITALS: BP 135/66; PULSE 61; RESP 16; TEMP 98.6
== END ==
LOC: WWCWWP 12:50
PROVIDERS: ATTEND Surgery
DX: Z08 Encounter for follow-up examination after completed treatment for malignant neoplasm (principal); R92.8 Other abnormal and inconclusive findings on diagnostic imaging of breast; F17.200 Nicotine dependence, unspecified, uncomplicated; Z85.3 Personal history of malignant neoplasm of breast; Z91.048 Other nonmedicinal substance allergy status; Z88.5 Allergy status to narcotic agent; Z79.82 Long term (current) use of aspirin

== ENCOUNTER → 2024-07-08 | Outpatient (CLI) | payer MEDICARE, OTHER ==
--- NOTE | 2024-07-08 13:44 | MM ---
Reason for Exam: Follow-up at short interval from prior study. Last screening mammogram was performed 7 month(s) ago. Patient History: Menarche at age 10. First Full-Term at age 20. Postmenopausal. Breast cancer, left, age 68. Previous chest radiation therapy at age 68. Previous chemotherapy at age 68. 04/26/2019, Lumpectomy on the Left side. 04/26/2019, Malignant Core Biopsy on the left side. 03/04/2019, Malignant Core Biopsy on the left side. Prior Study Comparison: 11/28/2021 Bilateral Diagnostic Mammogram, [facility]. 12/01/2022 Bilateral MG 3D diag mammo w/cad MOLLY, [facility]. 12/03/2023 Bilateral MG 3D diag mammo w/cad MOLLY, [facility]. Tissue Density: Right: There are scattered areas of fibroglandular density. Findings: Analyzed By CAD. The pattern appears stable. Benign calcification is within the anterior right breast. Nodular skin lesions within the right breast. No suspicious groups of microcalcifications, spiculated or lobular masses, architectural distortion or other secondary signs of malignancy are mammographically apparent. Overall Assessment: Benign, BI-RAD 2 Management: Screening Mammogram of both breasts in 6 months. A negative mammogram report should not preclude additional follow up of suspicious palpable abnormalities. Patient should continue monthly self breast exam. A clinical breast exam by your physician is recommended on an annual basis and results should be correlated with mammographic findings. Note on Donna scores and lifetime risk: 1. A Donna score greater than 3% is considered moderate risk. If this is the case, consider specialist referral to assess eligibility for a risk reducing agent. 2. If overall lifetime risk for the development of breast cancer is 20% or higher, the patient may qualify for future screening with alternating mammogram and breast MRI. [facility], , 07/08/2024 1:41 PM. Electronically signed and approved by: Timoteo Jeffers D.O. Radiologis
--- NOTE | 2024-07-08 14:36 | P.PN ---
Subjective Progress Note Date: 07/08/24 Principal diagnosis: left breast IDC [id number] 05/22/23 stage IA left breast cancer invasive ductal cancer, bilateral hydradenitis worse on the right; April 2019 Stage IA [id number]+Her2-G1 Estela is a 71-year-old white female status post left breast lumpectomy and sentinel node biopsy. This was done in April 2019. The pathology revealed a grade 1A invasive ductal carcinoma which was 4 mm in size and the margins were negative. She did have some DCIS and distance from the closest margin was 1 mm from the blue inked margin. She completed 6 weeks of radiation therapy. She is taking an anti-hormone medication, aromisin She is having some hot flashes related to this, but this has improved. She did not have any chemotherapy. The patient had a bilateral mammogram on which was benign BIRADS 2. She was seen in consultation with Dr. Woods on . The patient has had bilateral radiation therapy to her axillas for treatment of the hidradenitis. This finished on 12/27/2019 She had partial response and underwent a second course of therapy finishing on . At this time she is not complaining of any new lumps masses or nodules in her breast. She is not complaining of any skin changes. She complained of the nipple discharge. She's not had any recent trauma or infection in the breast. She does have some discomfort in the inner lower aspect of the left breast with it appears to be some hidradenitis present, it has not improved but is not getting worse. The hydrated adenitis has improved in both axillas. She does not have any recent flareups under her arms, she has had some flare ups in her perineum. She was treated with radiation for this area. She had a bilateral mammogram on 11-28-21 which was benign BIRAD [address] Woods 05-22-22 reviewed. 12-12-[address] Collins 08-01-22 reviewed bilateral mammogram 12-01-22 BIRAD 2 She is complaining of some tenderness in the 12 o'clock position of the left breast. She does not feel any lumps masses or nodules of concern at that site. The tenderness is been present for several months. It is intermittent in nature. It is about a 3 when it comes and only lasts for a few minutes. She is presently on exmestone hormone therapy 05-22-23 She is presently on exmestane and is tolerating it without difficulty. She continues to have some mild tenderness in the lateral aspect of the left breast which is intermittent in nature. She is not complaining of any new lumps masses or notches of concern in either breast. 12-03-23 Bilateral mammogram 12-03-23 pending results Stage IA [id number]/Pr+Her2-G1 Estela is a 71-year-old white female status post left breast lumpectomy and sentinel node biopsy. This was done in April 2019. The pathology revealed a grade 1A invasive ductal carcinoma which was 4 mm in size and the margins were negative. She did have some DCIS and distance from the closest margin was 1 mm from the blue inked margin. She completed 6 weeks of radiation therapy. She is taking an anti-hormone medication, exmestane She is having some hot flashes related to this, but this has improved. She did not have any chemotherapy. She had hydroadenitis treated with radiation in both axillas She complains of pain in the lateral left breast leg. This is not new. She is not complaining of any new lumps masses or nodules of concern in either breast. 07-08-24 bilateral mammogram 12-03-23 repeat right breast mammogram in 6 months/ done on 07-08-24 BIRAD 2 She is not complaning of any lumps masses or nodules of concern in either breast She has progressive dementia, she is following with Dr. Hutton Family history: Maternal grandmother: Skin cancer Patient: Cervical cancer, breast cancer Hormonal history: Menarche: 12 with one miscarriage did not breast-feed, first child born at 21 Menopause: 41 control pills: 4 years Hormones: Negative Surgical history: Cholecystectomy Left knee replacement Trigger finger release Left carpal tunnel surgery Left lumpectomy and sentinel node biopsy scheduled for total right knee replacement right knee partial replacement Medical history: Hidradenitis Arthritis Herniated disc in neck tremor Diabetes Hypothyroid dementia starting anxiety dementia advancing Social history: smoke: 1/2 PPD Alcohol: Negative Drugs: Negative Review of systems: HEENT: Negative Cardiovascular: Hypertension Respiratory: Smoke or emphysema GI: Irritable bowel syndrome history of hepatitis : Negative Menstruation: Postmenopausal Musculoskeletal: Arthritis Integument: Hidradenitis under both arms worse on the right and bilateral groin Neurologic: Tremor, beginning of dementia Psychiatric: Anxiety Endocrine: Weight loss ALLERGIES:seasonal allergies Objective - Constitutional General appearance: Present: cooperative - EENT Eyes: Present: EOMI ENT: Present: hearing grossly normal - Neck Neck: Present: normal ROM - Respiratory Respiratory: bilateral: CTA - Cardiovascular Rhythm: regular Heart sounds: normal: S1, S2 - Integumentary Integumentary: Present: normal turgor - Musculoskeletal Musculoskeletal: Present: gait normal - Psychiatric Psychiatric Comment(s): some short term memory loss Psychiatric: Present: A&O x's 3, appropriate affect, intact judgment & insight - Additional findings Additional findings: Breast Exam: BRA; XL sports bra Inspection: Bilateral grade 2/3 ptosis, bilatearl hidroadenitis axillary changes, and changes under her breast Palpation: Right breast: Multi-positional exam fibrocystic changes no dominant masses or nodules of concern, hidradenitis right axilla and under right breast Right axilla: Hidradenitis no active infection Left breast: Multi-positional exam fibrocystic changes no dominant masses or nodules of concern, left axilla: hidroadenitis left axilla and under left breast no active infection Assessment and Plan Assessment: Impression: Hidradenitis Arthritis 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 Ortiz
== END | disposition home or self-care (01) ==
LOC: RADMAMWWP 13:24
PROVIDERS: ATTEND Surgery
DX: Z85.3 Personal history of malignant neoplasm of breast (principal); Z78.0 Asymptomatic menopausal state; R92.321 Mammographic fibroglandular density, right breast; N63.10 Unspecified lump in the right breast, unspecified quadrant
CPT/HCPCS: 77065; G0279; 77061

== ENCOUNTER → 2024-07-08 | Outpatient (CLI) | payer MEDICARE, OTHER ==
--- NOTE | 2024-07-08 13:44 | MM ---
Reason for Exam: Follow-up at short interval from prior study. Last screening mammogram was performed 7 month(s) ago. Patient History: Menarche at age 10. First Full-Term at age 20. Postmenopausal. Breast cancer, left, age 68. Previous chest radiation therapy at age 68. Previous chemotherapy at age 68. 04/26/2019, Lumpectomy on the Left side. 04/26/2019, Malignant Core Biopsy on the left side. 03/04/2019, Malignant Core Biopsy on the left side. Prior Study Comparison: 11/28/2021 Bilateral Diagnostic Mammogram, [facility]. 12/01/2022 Bilateral MG 3D diag mammo w/cad MO[facility], [facility]. 12/03/2023 Bilateral MG 3D diag mammo w/cad MOLLY, [facility]. Tissue Density: Right: There are scattered areas of fibroglandular density. Findings: Analyzed By CAD. The pattern appears stable. Benign calcification is within the anterior right breast. Nodular skin lesions within the right breast. No suspicious groups of microcalcifications, spiculated or lobular masses, architectural distortion or other secondary signs of malignancy are mammographically apparent. Overall Assessment: Benign, BI-RAD 2 Management: Screening Mammogram of both breasts in 6 months. A negative mammogram report should not preclude additional follow up of suspicious palpable abnormalities. Patient should continue monthly self breast exam. A clinical breast exam by your physician is recommended on an annual basis and results should be correlated with mammographic findings. Note on Donna scores and lifetime risk: 1. A Donna score greater than 3% is considered moderate risk. If this is the case, consider specialist referral to assess eligibility for a risk reducing agent. 2. If overall lifetime risk for the development of breast cancer is 20% or higher, the patient may qualify for future screening with alternating mammogram and breast MRI. [facility], , 07/08/2024 1:41 PM. Electronically signed and approved by: Timoteo Jeffers D.O. Radiologis
[2024-07-08 14:39] VITALS: BP 124/74; PULSE 60; RESP 17; TEMP 98.4
--- NOTE | 2024-08-05 15:10 | P.PN ---
Subjective Progress Note Date: 07/08/24 Principal diagnosis: left breast IDC [id number] 05/22/23 stage IA left breast cancer invasive ductal cancer, bilateral hydradenitis worse on the right; April 2019 Stage IA [id number]/Pr+Her2-G1 Estela is a 71-year-old white female status post left breast lumpectomy and sentinel node biopsy. This was done in April 2019. The pathology revealed a grade 1A invasive ductal carcinoma which was 4 mm in size and the margins were negative. She did have some DCIS and distance from the closest margin was 1 mm from the blue inked margin. She completed 6 weeks of radiation therapy. She is taking an anti-hormone medication, aromisin She is having some hot flashes related to this, but this has improved. She did not have any chemotherapy. The patient had a bilateral mammogram on which was benign BIRADS 2. She was seen in consultation with Dr. Woods on . The patient has had bilateral radiation therapy to her axillas for treatment of the hidradenitis. This finished on 12/27/2019 She had partial response and underwent a second course of therapy finishing on . At this time she is not complaining of any new lumps masses or nodules in her breast. She is not complaining of any skin changes. She complained of the nipple discharge. She's not had any recent trauma or infection in the breast. She does have some discomfort in the inner lower aspect of the left breast with it appears to be some hidradenitis present, it has not improved but is not getting worse. The hydrated adenitis has improved in both axillas. She does not have any recent flareups under her arms, she has had some flare ups in her perineum. She was treated with radiation for this area. She had a bilateral mammogram on 11-28-21 which was benign BIRAD [address] Woods 05-22-22 reviewed. 12-12-[address] Collins 08-01-22 reviewed bilateral mammogram 12-01-22 BIRAD 2 She is complaining of some tenderness in the 12 o'clock position of the left breast. She does not feel any lumps masses or nodules of concern at that site. The tenderness is been present for several months. It is intermittent in nature. It is about a 3 when it comes and only lasts for a few minutes. She is presently on exmestone hormone therapy 05-22-23 She is presently on exmestane and is tolerating it without difficulty. She continues to have some mild tenderness in the lateral aspect of the left breast which is intermittent in nature. She is not complaining of any new lumps masses or notches of concern in either breast. 12-03-23 Bilateral mammogram 12-03-23 pending results Stage IA [id number]/Pr+Her2-G1 Estela is a 71-year-old white female status post left breast lumpectomy and sentinel node biopsy. This was done in April 2019. The pathology revealed a grade 1A invasive ductal carcinoma which was 4 mm in size and the margins were negative. She did have some DCIS and distance from the closest margin was 1 mm from the blue inked margin. She completed 6 weeks of radiation therapy. She is taking an anti-hormone medication, exmestane She is having some hot flashes related to this, but this has improved. She did not have any chemotherapy. She had hydroadenitis treated with radiation in both axillas She complains of pain in the lateral left breast leg. This is not new. She is not complaining of any new lumps masses or nodules of concern in either breast. 07-08-24 bilateral mammogram 12-03-23 repeat right breast mammogram in 6 months/ done on 07-08-24 BIRAD 2 She is not complaning of any lumps masses or nodules of concern in either breast She has progressive dementia, she is following with Dr. Hutton Family history: Maternal grandmother: Skin cancer Patient: Cervical cancer, breast cancer Hormonal history: Menarche: 12 with one miscarriage did not breast-feed, first child born at 21 Menopause: 41 control pills: 4 years Hormones: Negative Surgical history: Cholecystectomy Left knee replacement Trigger finger release Left carpal tunnel surgery Left lumpectomy and sentinel node biopsy scheduled for total right knee replacement right knee partial replacement Medical history: Hidradenitis Arthritis Herniated disc in neck tremor Diabetes Hypothyroid dementia starting anxiety dementia advancing Social history: smoke: 1/2 PPD Alcohol: Negative Drugs: Negative Review of systems: HEENT: Negative Cardiovascular: Hypertension Respiratory: Smoke or emphysema GI: Irritable bowel syndrome history of hepatitis : Negative Menstruation: Postmenopausal Musculoskeletal: Arthritis Integument: Hidradenitis under both arms worse on the right and bilateral groin Neurologic: Tremor, beginning of dementia Psychiatric: Anxiety Endocrine: Weight loss ALLERGIES:seasonal allergies Objective - Constitutional General appearance: Present: cooperative - EENT Eyes: Present: EOMI ENT: Present: hearing grossly normal - Neck Neck: Present: normal ROM - Respiratory Respiratory: bilateral: CTA - Cardiovascular Rhythm: regular Heart sounds: normal: S1, S2 - Integumentary Integumentary: Present: normal turgor - Musculoskeletal Musculoskeletal: Present: gait normal - Psychiatric Psychiatric Comment(s): some short term memory loss Psychiatric: Present: A&O x's 3, appropriate affect, intact judgment & insight - Additional findings Additional findings: Breast Exam: BRA; XL sports bra Inspection: Bilateral grade 2/3 ptosis, bilatearl hidroadenitis axillary changes, and changes under her breast Palpation: Right breast: Multi-positional exam fibrocystic changes no dominant masses or nodules of concern, hidradenitis right axilla and under right breast Right axilla: Hidradenitis no active infection Left breast: Multi-positional exam fibrocystic changes no dominant masses or nodules of concern, left axilla: hidroadenitis left axilla and under left breast no active infection Assessment and Plan Assessment: Impression: Hidradenitis Arthritis 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 Ortiz
== END ==
LOC: WWCWWP 13:19
PROVIDERS: ATTEND Surgery
DX: Z85.3 Personal history of malignant neoplasm of breast
CPT/HCPCS: 77061; 77065

== ENCOUNTER → 2024-07-15 | Outpatient (CLI) | payer MEDICARE, OTHER ==
[2024-07-15 12:32] LABS: African American GFR (CKD) 86 (>60 ml/min/1.73 sqM); Blood Urea Nitrogen 18 mg/dL (7-17); Non-African American GFR(CKD) 75 (>60 ml/min/1.73 sqM)
--- NOTE | 2024-07-15 14:05 | CT ---
EXAMINATION TYPE: CT brain wo/w con CT DLP: 2443 mGycm, Automated exposure control for dose reduction was used. DATE OF EXAM: 07/15/2024 1:16 PM COMPARISON: CT brain 08/18/2021, 02/29/2020, CTA head and neck 08/19/2021, MRI brain 10/17/2019. CLINICAL INDICATION:Female, 74 years old with history of R51.9 HEADACHE, UNSPECIFIED; [facility], LT side sc alp tenderness, arnold chiari, meningioma. TECHNIQUE: Axial CT images of the brain were obtained followed by contrast enhanced axial images of t he brain with 100 cc of ISO-view 370 IV contrast. One or more CT dose reduction strategies were utili zed during this examination. Coronal and sagittal reformats reviewed. FINDINGS: Extra-axial spaces: Stable size of right parietal extradural 1.8 x 0.4 cm partially calcified enhanci ng lesion (series 10, image 26). Previously measured 1.8 x 0.3 cm. No abnormal extra-axial fluid becky ections. Ventricular system: Within normal limits Cerebral parenchyma: Mild cerebral atrophy. No acute intraparenchymal hemorrhage or mass effect. The posey-white junction is well differentiated. Remote left temporal lobe lacunar infarct. Scattered hyp oattenuating areas are seen within the periventricular white matter. Similar focus of enhancement wit hin the left caudate head. No new abnormal enhancement is seen after the administration of intravenou s contrast. Cerebellum: Low-lying cerebellar tonsils at 4 mm below the foramen magnum. Previously 6 mm Mass effect: No evidence of midline shift. Intracranial vasculature: unremarkable Soft tissues: Stable right parotid gland peripherally enhancing 1.0 cm lesion. Calvarium/osseous structures: No depressed skull fracture. Paranasal sinuses and mastoid air cells: Clear. Visualized orbits: Bilateral aphakia IMPRESSION: 1. No acute intracranial process. 2. Similar CT appearance of right parietal extradural partially calcified probable meningioma. No ne w suspicious enhancing lesions. 3. Nonspecific white matter changes likely related to chronic small vessel ischemic disease. Additio nal re-demonstration of remote left temporal lobe lacunar infarct. 4. Stable right parotid gland 1.0 cm lesion. Likely benign due to stability. 5. Low-lying cerebellar tonsils again corresponding to reported Chiari malformation. [facility], , 07/15/2024 2:03 PM
== END | disposition home or self-care (01) ==
LOC: RADCTMAIN 11:50
PROVIDERS: ATTEND Family Medicine
DX: R51.9 Headache, unspecified (principal); R90.82 White matter disease, unspecified; G31.9 Degenerative disease of nervous system, unspecified; Z86.73 Personal history of transient ischemic attack (TIA), and cerebral infarction without residual deficits
CPT/HCPCS: 82565; 84520; 70470; 36415; Q9967

== ENCOUNTER → 2025-01-12 | Outpatient (CLI) | payer MEDICARE, OTHER ==
[2025-01-12 11:44] VITALS: BP 130/78; PULSE 61; RESP 17; TEMP 97.8
--- NOTE | 2025-01-12 12:05 | P.PN ---
Subjective Progress Note Date: 01/12/25 Principal diagnosis: Stage IA IDC [id number]-G1 left breast, 201807/08/24 Principal diagnosis: left breast IDC [id number] 05/22/23 stage IA left breast cancer invasive ductal cancer, bilateral hydradenitis worse on the right; April 2019 Stage IA [id number]+Her2-G1 Estela is a 71-year-old white female status post left breast lumpectomy and sentinel node biopsy. This was done in April 2019. The pathology revealed a grade 1A invasive ductal carcinoma which was 4 mm in size and the margins were negative. She did have some DCIS and distance from the closest margin was 1 mm from the blue inked margin. She completed 6 weeks of radiation therapy. She is taking an anti-hormone medication, aromisin She is having some hot flashes related to this, but this has improved. She did not have any chemotherapy. The patient had a bilateral mammogram on which was benign BIRADS 2. She was seen in consultation with Dr. Woods on . The patient has had bilateral radiation therapy to her axillas for treatment of the hidradenitis. This finished on 12/27/2019 She had partial response and underwent a second course of therapy finishing on . At this time she is not complaining of any new lumps masses or nodules in her breast. She is not complaining of any skin changes. She complained of the nipple discharge. She's not had any recent trauma or infection in the breast. She does have some discomfort in the inner lower aspect of the left breast with it appears to be some hidradenitis present, it has not improved but is not getting worse. The hydrated adenitis has improved in both axillas. She does not have any recent flareups under her arms, she has had some flare ups in her perineum. She was treated with radiation for this area. She had a bilateral mammogram on 11-28-21 which was benign BIRAD [address] Woods 05-22-22 reviewed. 12-12-[address] Collins 08-01-22 reviewed bilateral mammogram 12-01-22 BIRAD 2 She is complaining of some tenderness in the 12 o'clock position of the left breast. She does not feel any lumps masses or nodules of concern at that site. The tenderness is been present for several months. It is intermittent in natu re. It is about a 3 when it comes and only lasts for a few minutes. She is presently on exmestone hormone therapy 05-22-23 She is presently on exmestane and is tolerating it without difficulty. She continues to have some mild tenderness in the lateral aspect of the left breast which is intermittent in nature. She is not complaining of any new lumps masses or notches of concern in either breast. 12-03-23 Bilateral mammogram 12-03-23 pending results Stage IA [id number]/Pr+Her2-G1 Estela is a 71-year-old white female status post left breast lumpectomy and sentinel node biopsy. This was done in April 2019. The pathology revealed a grade 1A invasive ductal carcinoma which was 4 mm in size and the margins were negative. She did have some DCIS and distance from the closest margin was 1 mm from the blue inked margin. She completed 6 weeks of radiation therapy. She is taking an anti-hormone medication, exmestane She is having some hot flashes related to this, but this has improved. She did not have any chemotherapy. She had hydroadenitis treated with radiation in both axillas She complains of pain in the lateral left breast leg. This is not new. She is not complaining of any new lumps masses or nodules of concern in either breast. 07-08-24 bilateral mammogram 12-03-23 repeat right breast mammogram in 6 months/ done on 07-08-24 JET 2 She is not complaning of any lumps masses or nodules of concern in either breast She has progressive dementia, she is following with Dr. Hutton 01-12-25 Bilateral mammogram 01-12-25 personally reviewed and discussed with Dr. Pan; JET 2 Stage IA [id number]/Pr+Her2-G1 Estela is a 74-year-old white female status post left breast lumpectomy and sentinel node biopsy. This was done in April 2019. The pathology revealed a grade 1A invasive ductal carcinoma which was 4 mm in size and the margins were negative. She did have some DCIS and distance from the closest margin was 1 mm from the blue inked margin. She completed 6 weeks of radiation therapy. She is taking an anti-hormone medication, exmestane She is having some hot flashes related to this, but this has improved. She did not have any chemotherapy. She had hydroadenitis treated with radiation in both axillas She complains of pain in the lateral left breast leg. This is not new. She is not complaining of any new lumps masses or nodules of concern in either breast. She stopped the exemestane last year secondary to the fact that it has been over 5 years. She has seen Dr. Hutton for progressive dementia Family history: Maternal grandmother: Skin cancer Patient: Cervical cancer, breast cancer Hormonal history: Menarche: 12 with one miscarriage did not breast-feed, first child born at 21 Menopause: 41 control pills: 4 years Hormones: Negative Surgical history: Cholecystectomy Left knee replacement Trigger finger release Left carpal tunnel surgery Left lumpectomy and sentinel node biopsy scheduled for total right knee replacement right knee partial replacement Medical history: Hidradenitis Arthritis Herniated disc in neck tremor Diabetes Hypothyroid dementia starting anxiety dementia advancing Social history: smoke: 1/2 PPD Alcohol: Negative Drugs: Negative Review of systems: HEENT: Negative Cardiovascular: Hypertension Respiratory: Smoke or emphysema GI: Irritable bowel syndrome history of hepatitis : Negative Menstruation: Postmenopausal Musculoskeletal: Arthritis Integument: Hidradenitis under both arms worse on the right and bilateral groin Neurologic: Tremor, beginning of dementia Psychiatric: Anxiety Endocrine: Weight loss ALLERGIES:seasonal allergies Objective - Vital Signs Vital signs: Vital Signs Temp 97.8 F 01/12/25 11:42 Pulse 61 01/12/25 11:42 Resp 17 01/12/25 11:42 BP 130/78 01/12/25 11:42 Pulse Ox 99 01/12/25 11:42 FiO2 Intake & Output 01/11/25 01/12/25 01/12/25 18:59 06:59 18:59 Weight 58.967 kg - Constitutional General appearance: Present: cooperative - EENT Eyes: Present: EOMI ENT: Present: hearing grossly normal - Neck Neck: Present: normal ROM - Respiratory Respiratory: bilateral: CTA - Cardiovascular Heart sounds: normal: S1, S2 - Integumentary Integumentary: Present: normal turgor - Psychiatric Psychiatric Comment(s): dementia Psychiatric: Present: A&O x's 3, appropriate affect - Additional findings Additional findings: Breast Exam: BRA; XL sports bra Inspection: Bilateral grade 2/3 ptosis, bilatearl hidroadenitis axillary changes, and changes under her breast Palpation: Right breast: Multi-positional exam fibrocystic changes no dominant masses or nodules of concern, hidradenitis right axilla and under right breast Right axilla: Hidradenitis no active infection Left breast: Multi-positional exam fibrocystic changes no dominant masses or nodules of concern, left axilla: hidroadenitis left axilla and under left breast no active infection Assessment and Plan Assessment: Impression: Hidradenitis Arthritis Herniated disc in neck tremor Diabetes Hypothyroid dementia starting anxiety dementia advancing left breast stage I invasive ductal cancer no recurrence Mammogram of 12-03-23 repeat right breast mammogram in 6 months; done on 07-08-24 BIRAD 2; bilateral mammogram 01-12-25 BIRAD [address] Pan verbal report Plan: bilateral mammogram 1 year with appointment at that time foflflow sooner any concerns follow with medical and radiation oncology CC: Dr. Ortiz
== END ==
LOC: WWCWWP 10:30
PROVIDERS: ATTEND Surgery
DX: C50.912 Malignant neoplasm of unspecified site of left female breast (principal); L73.2 Hidradenitis suppurativa; M19.90 Unspecified osteoarthritis, unspecified site; M50.20 Other cervical disc displacement, unspecified cervical region; E11.9 Type 2 diabetes mellitus without complications; E03.9 Hypothyroidism, unspecified; F03.90 Unspecified dementia, unspecified severity, without behavioral disturbance, psychotic disturbance, mood disturbance, and anxiety; F41.9 Anxiety disorder, unspecified; R25.1 Tremor, unspecified; Z88.5 Allergy status to narcotic agent; Z91.048 Other nonmedicinal substance allergy status; F17.210 Nicotine dependence, cigarettes, uncomplicated

== ENCOUNTER → 2025-01-12 | Outpatient (CLI) | payer MEDICARE, OTHER ==
--- NOTE | 2025-01-12 12:16 | MM ---
Reason for Exam: Hx of breast cancer, conservation therapy. Last mammogram was performed 1 year(s) and 2 month(s) ago. Patient History: Menarche at age 10. First Full-Term at age 20. Postmenopausal. Breast cancer, left, age 68. Previous chest radiation therapy at age 68. Previous chemotherapy at age 68. 04/26/2019, Lumpectomy on the Left side. 04/26/2019, Malignant Core Biopsy on the left side. 03/04/2019, Malignant Core Biopsy on the left side. Prior Study Comparison: 11/21/2019 Bilateral Diagnostic Mammogram, [facility]. 11/26/2020 Bilateral Diagnostic Mammogram, [facility]. 12/01/2022 Bilateral MG 3D diag mammo w/cad [facility], [facility]. 12/03/2023 Bilateral MG 3D diag mammo w/cad [facility], [facility]. 07/08/2024 Right MG 3D diag mammo w/cad RT, [facility]. Tissue Density: There are scattered areas of fibroglandular density. Findings: Analyzed By CAD. Stable postoperative changes of left-sided lumpectomy. No recurrent mass. No mass seen within either breast. No suspicious microcalcifications identified. Overall Assessment: Benign, BI-RAD 2 Management: Diagnostic Mammogram of both breasts in 1 year. . Results were given to the patient verbally at the time of exam. Patient should continue monthly self-breast exams. A clinical breast exam by your physician is recommended on an annual basis. This exam should not preclude additional follow-up of suspicious palpable abnormalities. Note on Donna scores and lifetime risk: 1. A Donna score greater than 3% is considered moderate risk. If this is the case, consider specialist referral to assess eligibility for a risk reducing agent. 2. If overall lifetime risk for the development of breast cancer is 20% or higher, the patient may qualify for future screening with alternating mammogram and breast MRI. [facility], , 01/12/2025 12:14 PM. Electronically signed and approved by: Brennen Bradley M.D. Radiologis
== END | disposition home or self-care (01) ==
LOC: RADMAMWWP 10:29
PROVIDERS: ATTEND Surgery
DX: R92.323 Mammographic fibroglandular density, bilateral breasts (principal); Z85.3 Personal history of malignant neoplasm of breast; Z78.0 Asymptomatic menopausal state; Z98.890 Other specified postprocedural states
CPT/HCPCS: 77066; G0279; 77062

== ENCOUNTER 2025-04-05 16:59 | Emergency (ER) | payer MEDICARE, OTHER ==
[2025-04-05 17:20] VITALS: BP 133/75; PULSE 57; RESP 18; TEMP 97.4
[2025-04-05 17:25] LABS: Glucose,Whole Blood 52 mg/dL (70-110)
--- NOTE | 2025-04-05 17:36 | ED ---
General Adult HPI - General Chief complaint: Dizziness Stated complaint: Dizziness/Chest Pain Time Seen by Provider: 04/05/25 17:12 Source: patient, family, RN notes reviewed Mode of arrival: ambulatory Limitations: no limitations - History of Present Illness Initial comments: Quick note74 Fe with history of dementia and diabetes presenting to the emerg ency department with caregivers with concerns of dizziness, chest pain, low blood sugar. Caregivers at bedside provided majority of history. Stated that after the patient was walking she sat down she was shaky and her blood sugar was low. Patient was also grabbing her chest when this happened. - Related Data Home Medications Medication Instructions Recorded Confirmed Aspirin 81 mg PO HS 07/06/15 01/12/25 Atorvastatin [Lipitor] 40 mg PO HS 07/06/15 01/12/25 Ferrous Sulfate [Iron (65 MG 25 mg PO DAILY 07/06/15 01/12/25 Elemental)] Magnesium Oxide [Magox 400] 400 mg PO DAILY 07/06/15 01/12/25 Omeprazole [PriLOSEC] 20 mg PO QAM 07/06/15 01/12/25 metFORMIN HCL [Glucophage] 1,000 mg PO BID 07/06/15 01/12/25 ramipriL [Altace] 5 mg PO HS 07/06/15 01/12/25 Insulin Aspart [NovoLOG Flexpen] See Protocol SQ AC-TID PRN 06/26/16 01/12/25 Insulin Glargine (Lantus) [Lantus 6 unit SQ HS 06/26/16 01/12/25 Vial] Cyanocobalamin (Vitamin B-12) 1,000 mcg PO DAILY 07/28/17 01/12/25 [Vitamin B-12] Exemestane [Aromasin] 25 mg PO DAILY 06/22/20 01/12/25 Albuterol Sulfate [Proventil Hfa] 2 puff INHALATION RT-Q4H PRN 11/29/20 01/12/25 Cholecalciferol [Vitamin D3 (25 50 mcg PO DAILY 11/29/20 01/12/25 Mcg = 1000 Iu)] Potassium Chloride [Potassium 10 meq PO HS 11/29/20 01/12/25 Chloride ER] Aclidinium Decker [Tudorza 1 puff INHALATION RT-BID 05/21/21 01/12/25 Pressair] Fluticasone Propion/Salmeterol 1 puff INHALATION RT-BID 05/21/21 01/12/25 [Wixela 250-50 Inhub] ALPRAZolam [Xanax] 0.25 mg PO HS PRN 06/20/21 01/12/25 Levothyroxine Sodium [Synthroid] 25 mcg PO QAM 08/18/21 01/12/25 Propranolol LA [Inderal LA] 60 mg PO QAM 08/19/21 01/12/25 Rivastigmine Tartrate [Exelon] 6 mg PO BID 08/19/21 01/12/25 Memantine [Namenda] 1 tab PO BID 12/12/22 01/12/25 Allergies Allergy/AdvReac Type Severity Reaction Status Date / Time adhesive tape Allergy BLISTERS Verified 04/05/25 17:20 SKIN, OK TO USE PAPER TAPE codeine AdvReac Nausea Verified 04/05/25 17:20 morphine AdvReac Hallucinati Verified 04/05/25 17:20 ons Review of Systems ROS Statement: Those systems with pertinent positive or pertinent negative responses have been documented in the HPI. ROS Other: All systems not noted in ROS Statement are negative. Past Medical History Past Medical History: Cancer, COPD, CVA/TIA, Dementia, Diabetes Mellitus, GERD/Reflux, Hyperlipidemia, Hypertension, Liver Disease, Memory Impairment, Musculoskeletal Disorder, Osteoarthritis (OA), Skin Disorder, Thyroid Disorder Additional Past Medical History / Comment(s): Hx Childhood Hepatitis A, hx Pericarditis in 2004, DDD, Hydradenitis in skin folds, Hiatal Hernia, hx Cervical Cancer, hx left breast cancer 2018, had radiation, First Stage of Vascular Dementia, swallowing difficulties, hx TIA's "unknown when, discovered on an MRI". frequent UTIs History of Any Multi-Drug Resistant Organisms: None Reported Past Surgical History: Breast Surgery, Cholecystectomy, Joint Replacement, Orthopedic Surgery Additional Past Surgical History / Comment(s): EGD, left knee replacement, bilateral trigger finger releases, right hand carpal tunnel surgery, procedure for cervical cancer, left breast biopsy. Past Anesthesia/Blood Transfusion Reactions: Previous Problems w/ Anesthesia, Postoperative Nausea & Vomiting (PONV) Additional Past Anesthesia/Blood Transfusion Reaction / Comment(s): "One time coming out of anesthesia I was in extreme pain, they said I woke up too quickly, they gave me Morphine and then I had terrible hallucinations". Past Psychological History: Anxiety, Panic Disorder Smoking Status: Current some day smoker Past Alcohol Use History: None Reported Past Drug Use History: None Reported - Past Family History Sister(s) Family Medical History: Deep Vein Thrombosis (DVT) Daughter(s) Family Medical History: Deep Vein Thrombosis (DVT) General Exam - General Exam Comments Initial Comments: Visual Physical Exam Vital signs reviewed General: Well-appearing, nontoxic, no acute distress. Head: Normocephalic, atraumatic Eyes: PERRLA, EOMI ENT: Airway patent Chest: Nonlabored breathing Skin: No visual rash, normal skin tone Neuro: Alert and oriented 3 Musculoskeletal: No gross abnormalities Limitations: no limitations Course Vital Signs 04/05/25 17:17 Temperature 97.4 F L Pulse Rate 57 L Respiratory 18 Rate Blood Pressure 133/75 O2 Sat by Pulse 99 Oximetry Medical Decision Making - Medical Decision Making I completed the quick note portion of this chart signed Kelsi Schmitt PA-C Comprehensive medical decision making unable to be determined due to patient AGAINST MEDICAL ADVICE. - Lab Data Lab Results 04/05/25 Range/Units 17:24 POC Glucose (mg/dL) 52 L (70-110) mg/dL POC Glu Microfilm Processor ID Unique Potts Disposition Clinical Impression: Left against medical advice Disposition: LEFT AGAINST MEDICAL ADVICE Condition: Undetermined Is patient prescribed a controlled substance at d/c from ED?: No Referrals: Xiomara Ortiz MD [Primary Care Provider] - 1-2 days
== END 2025-04-05 20:37 | disposition left against medical advice (07) ==
LOC: EC 16:59
DX: R42 Dizziness and giddiness (principal); Z53.29 Procedure and treatment not carried out because of patient's decision for other reasons; F17.200 Nicotine dependence, unspecified, uncomplicated; Z88.5 Allergy status to narcotic agent; Z91.048 Other nonmedicinal substance allergy status
CPT/HCPCS: 36415; 93005; 99284